=== PATIENT | female | born 1955 | race Caucasian/White ===

== ENCOUNTER → 2020-02-24 | Outpatient (CLI) | payer MEDICARE, OTHER, SELFPAY ==
--- NOTE | 2020-02-24 | ASPS_PTH ---
PATIENT: NIKI MEYER LOC: [facility] U#:[id number] AGE/SX: 65/F ROOM: RE02/24/[address]: Dr. Jose Frost MD : 1955 BED: DIS: 02/24/2020 SPEC #: [id number] RECD: 02/24/20 16:04 STATUS: VIDYA JOSE #: [id number] ROBERT: 02/24/20 00:[address]: Jose Frost DEPT: CYTOLOGY RECD BY: Javi Cole ENTERED: 02/25/20 07:59 SP TYPE: ASPIRATION OTHR DR: Dr. Todd Mensah, DO Tissues: A - Thyroid gland, NOS B - Thyroid gland, NOS Procedures: Special Stain Group II Cytology Other HEADER OPERATION: Left thyroid FNA PRE-OP DIAGNOSIS: Abnormal thyroid ultrasound, multiple thyroid nodules TISSUE SUBMITTED: A - Left inferior thyroid slides x6, B - Left superior thyroid slides x6 DIAGNOSIS CYTOLOGY A. Fine needle aspiration, left inferior thyroid nodule (smears): Adequate for evaluation. Negative, consistent with benign follicular nodule. B. Fine needle aspiration, left superior thyroid nodule (smears): Adequate for evaluation. Negative, consistent with benign follicular nodule. AM:shahla 02/26/20 CYTOLOGY STUDY Slides are reviewed. CYTOLOGY GROSS A - Received are six smears labeled with the patient's name and designated per the requisition as left inferior thyroid. Submitted for staining. B - Received are six smears labeled with the patient's name and designated per the requisition as left superior thyroid. Submitted for staining. / shahla 02/25/20 TC:5 CPT: 59938 x2
[2020-02-24 14:38] VITALS: BMI 24.5
== END | disposition home or self-care (01) ==
PROVIDERS: PCP Student in an Organized Health Care Education/Training Program; Referring Provider Surgery; Visit Provider Surgery
DX: E04.2 Nontoxic multinodular goiter (principal)
CPT/HCPCS: 88161; 88313

== ENCOUNTER → 2020-02-25 16:14 | Outpatient (CLI) | payer MEDICARE, OTHER, SELFPAY ==
[2020-02-25 08:58] VITALS: BMI 24.5
--- NOTE | 2020-02-25 16:01 | ASPS_PTH ---
PATIENT: NIKI MEYER LOC: [facility] U#:[id number] AGE/SX: 70/F ROOM: RE02/25/[address]: Dr. Jose Frost MD : 1955 BED: DIS: SPEC #: [id number] RECD: 02/25/20 16:01 STATUS: VIDYA JOSE #: [id number] ROBERT: 02/25/20 16:[address]: Jose Frost DEPT: CYTOLOGY RECD BY: Luis Huitron ENTERED: 02/26/20 07:54 SP TYPE: ASPIRATION OTHR DR: Dr. Todd Mensah DO Tissues: Thyroid gland, NOS Procedures: Special Stain Group II Cytology Other HEADER OPERATION: Right thyroid FNA PRE-OP DIAGNOSIS: Multiple thyroid nodules TISSUE SUBMITTED: Right thyroid slides x6 DIAGNOSIS CYTOLOGY Right thyroid nodule, fine needle aspiration (smears): Adequate for evaluation. Mild atypia of undetermined clinical significance. AM:shahla 02/26/20 CYTOLOGY STUDY Slides are reviewed. CYTOLOGY GROSS Received are six smears labeled with the patient's name and designated per the requisition as right thyroid. Submitted for staining. / shahla 02/26/20 TC:? CPT: 26608
== END ==
PROVIDERS: PCP Student in an Organized Health Care Education/Training Program; Referring Provider Surgery; Visit Provider Surgery
DX: E04.2 Nontoxic multinodular goiter (principal)
CPT/HCPCS: 88161; 88313

== ENCOUNTER → 2020-05-03 | Outpatient (CLI) | payer MEDICARE, OTHER, SELFPAY ==
[2020-02-25 08:58] VITALS: BMI 24.5
[2020-05-03 12:48] LABS: T4 Free Direct 1.24 ng/dL (0.76-1.46); Thyroid Stim Hormone (TSH) 1.67 uIU/mL (0.358-3.74)
[2020-05-04 09:40] LABS: Thyroid Peroxidase AB 15 IU/mL (0-34)
== END | disposition home or self-care (01) ==
LOC: BIMLAB 10:46
PROVIDERS: PCP Student in an Organized Health Care Education/Training Program; Referring Provider Internal Medicine Endocrinology, Diabetes & Metabolism; Visit Provider Internal Medicine Endocrinology, Diabetes & Metabolism
DX: E03.9 Hypothyroidism, unspecified (principal)
CPT/HCPCS: 36415; 84439; 84443; 86376

== ENCOUNTER → 2020-08-02 | Outpatient (CLI) | payer MEDICARE, OTHER, SELFPAY ==
[2020-02-25 08:58] VITALS: BMI 24.5
--- NOTE | 2020-08-02 08:37 | US_ITS ---
STUDY: THYROID ULTRASOUND REASON FOR EXAM: Female, 65 years old. Nodule TECHNIQUE: Ultrasound evaluation of the thyroid was performed with real-time and static potts-scale imaging. COMPARISON: None. FINDINGS: RIGHT LOBE: The right lobe of the thyroid gland measures 4.3 cm x 1 cm x 1.3 cm. There is a heterogeneous echotexture. Multiple small hypoechoic solid nodules are seen scattered throughout the right lobe. The largest measures 5 mm x 5 mm x 4 mm. Rim-like calcification is seen. LEFT LOBE: The left lobe of the thyroid gland is enlarged and measures 5.6 cm x 2.2 cm x 1.5 cm. There is a heterogeneous echotexture. Multiple small solid nodules are seen. The largest nodule measures 3.2 cm x 1.9 cm x 1.8 cm. There is evidence of intranodular vascularity. This is in the lower pole of the left lobe. ISTHMUS: The isthmus measures 1.8 mm. The regional lymph nodes are normal. US/Thyroid IMPRESSION: Heterogeneous echotexture of both lobes of the thyroid. Dominant 3.2 cm x 1.9 cm x 1.8 cm solid nodule in the lower pole of the left lobe of the thyroid. Multiple small bilateral solid nodules. Electronically Signed: Osmany Boyd, at 14:55 EDT , Service support ,
== END | disposition home or self-care (01) ==
LOC: US 08:37
PROVIDERS: PCP Student in an Organized Health Care Education/Training Program; Referring Provider Surgery; Visit Provider Surgery
DX: E04.1 Nontoxic single thyroid nodule (principal)
CPT/HCPCS: 76536

== ENCOUNTER 2021-02-02 17:23 | Outpatient (RCR) | payer MEDICARE, OTHER, SELFPAY ==
[2020-08-24 11:32] VITALS: BMI 24.5
[2021-02-02] MEDS: COVID-19 VACC, MRNA(PFIZER)/PF 30 MCG/0.3 ML SYRINGE IM (16:05)
[2021-02-23] MEDS: COVID-19 VACC, MRNA(PFIZER)/PF 30 MCG/0.3 ML SYRINGE IM (15:39)
== END 2021-05-09 23:59 ==
LOC: IMMUN 17:23
PROVIDERS: PCP Student in an Organized Health Care Education/Training Program; Visit Provider Family Medicine
DX: Z23 Encounter for immunization (principal)
CPT/HCPCS: 0001A; 0002A; 91300

== ENCOUNTER → 2021-07-04 | Outpatient (CLI) | payer MEDICARE, OTHER, SELFPAY ==
[2020-08-24 11:32] VITALS: BMI 24.5
--- NOTE | 2021-07-04 11:15 | US_ITS ---
EXAM DESCRIPTION: CLINICAL HISTORY: 66 years Female, thyroid nodules COMPARISON: Previous thyroid ultrasound obtained on 08/02/2020 FINDINGS: Serial longitudinal and transverse scans of the thyroid were obtained utilizing a real-time sector scanner. The thyroid measurements are as follows: Right thyroid lobe: 3.6 x 1.2 x 1.1 cm with a volumn of cc. Left thyroid lobe: 5.5 x 2.2 x 1.6 cm with a volumn of cc. Thyroid isthmus: 0.3 cm The thyroid has a heterogenous appearance. There is a calcified thyroid nodule measuring about 5 mm in size in the right lobe of thyroid which was previously identified and is unchanged. A small questionable hypoechoic nodule is seen in the inferior right thyroid lobe surrounded by some echogenic stranding. This The left thyroid lobe a larger heterogeneous nodular density which contains some internal cyst is identified. This well encapsulated nodule measures 3.1 x 2.3 x 1.3 cm in size and there was previously identified and is not significant changed. Just superior to this is a smaller nodule which is solid measuring 1.4 x 1.3 x 0.8 cm in size which likewise is unchanged. An additional homogeneous nodule measuring 5 x 6 mm in size and 2 additional smaller nodules of similar size are also seen which appear unchanged. No significant cervical lymphadenopathy is identified. US/Thyroid IMPRESSION: A multinodular thyroid goiter is identified which is unchanged. Electronically Signed: Pantera Oneil DO at 14:00 EDT Tel , Service support ,
== END | disposition home or self-care (01) ==
LOC: US 11:15
PROVIDERS: PCP Student in an Organized Health Care Education/Training Program; Referring Provider Surgery; Visit Provider Surgery
DX: E04.2 Nontoxic multinodular goiter (principal)
CPT/HCPCS: 76536

== ENCOUNTER → 2021-08-25 12:00 | Outpatient (CLI) | payer MEDICARE, OTHER, SELFPAY ==
[2021-08-25 15:15] LABS: Absolute Lymphocyte Count 1.16 X10^3/uL (0.83-4.51); Absolute Neutrophil Count 2.5 X10^3/uL (2.0-7.7); Basophil# 0.03 X10^3/uL; Basophil% 0.7 % (0-1); Eosinophil# 0.21 X10^3/uL; Eosinophils% 4.8 % (0-5); Hematocrit 39.4 % (37-47); Hemoglobin 12.1 g/dL (12.0-15.0); Lymphocyte # 1.16 X10^3/ul (0.83-4.51); Lymphocyte % 26.5 % (19-41); Mean Corp Hgb Conc 30.7 g/dL (32-36); Mean Corpuscular Hgb 27.3 pg (27.0-32.0); Mean Corpuscular Volume 88.7 fL (81-99); Mean Platelet Vol. 10.9 fl (6.2-12.0); Monocyte# 0.51 X10^3/uL; Monocyte% 11.6 % (0-10); NRBC Flagged by Analyzer 0 % (0-5); Neutrophil # 2.46 X10^3/uL (2.7-7.7); Neutrophil % 56.2 % (47-70); Platelet Count 334 K/mm3 (150-450); RBC Distribution Width CV 15.1 % (11.6-14.6); RBC Distribution Width SD 49.5 fl (35.1-43.9); Red Blood Count 4.44 M/mm3 (4.2-5.4); White Blood Count 4.4 K/mm3 (4.4-11.0)
[2021-08-25 15:35] LABS: Vitamin D,25 Hydroxy 49.6 ng/mL
[2021-08-25 15:45] LABS: ALB/GLOB Ratio 0.6 RATIO (0.9-2.4); AST(SGOT) 16 U/L (15-37); Alanine Aminotransfer ALT/SGPT 25 U/L (13-56); Alkaline Phosphatase 65 U/L (45-117); Anion Gap 5 (5-15); BUN 18 mg/dL (7-18); BUN/Creat Ratio 25.9 RATIO (10-20); Calcium,Total 8.3 mg/dL (8.5-10.1); Chloride 106 mmol/L (98-107); Creatinine, Serum 0.69 mg/dL (0.55-1.02); EST Glomerular Filtration Rate 89 mL/min (>60); Est Glom Filt Rate - Afr Amer 108 mL/min (>60); Globulin 4.7 g/dL (2.2-4.2); Glucose 90 mg/dL (74-106); Potassium 4.6 mmol/L (3.5-5.1); Protein, Total 7.7 g/dL (6.4-8.2); Sodium Level 137 mmol/L (136-145); T4 Free Direct 1.38 ng/dL (0.76-1.46); Thyroid Stim Hormone (TSH) 1.99 uIU/mL (0.358-3.74)
== END ==
PROVIDERS: PCP Student in an Organized Health Care Education/Training Program; Referring Provider Internal Medicine Endocrinology, Diabetes & Metabolism; Visit Provider Internal Medicine Endocrinology, Diabetes & Metabolism
DX: E03.9 Hypothyroidism, unspecified (principal); E04.2 Nontoxic multinodular goiter; M81.0 Age-related osteoporosis without current pathological fracture; E55.9 Vitamin D deficiency, unspecified
CPT/HCPCS: 36415; 80053; 82306; 84439; 84443; 85025

== ENCOUNTER → 2022-07-09 | Outpatient (CLI) | payer MEDICARE, OTHER, SELFPAY ==
--- NOTE | 2022-07-09 12:33 | US_ITS ---
STUDY: THYROID ULTRASOUND REASON FOR EXAM: Female, 67 years old. Known nodules, follow-up TECHNIQUE: Ultrasound evaluation of the thyroid was performed with real-time and static potts-scale imaging. COMPARISON: 07/04/2021, 08/02/2020 FINDINGS: RIGHT LOBE: The right lobe of the thyroid gland measures 3.5 x 1.3 x 1.0 cm. There is a homogeneous echotexture. [employer] notes 3 thyroid nodules. Largest is 0.5 cm and again noted to be calcified. The other 2 measure 3 mm, one is a cyst, one is a mixed solid and cystic lesion. LEFT LOBE: The left lobe of the thyroid gland measures 5.1 x 2.4 x 1.6 cm. There is a homogeneous echotexture. [employer] Manager notes 4 nodules. All are unchanged sonographically from the previous study. The largest again measures approximately 2.9 x 2.6 x 1.6 cm. No new suspicious shadowing solid nodule or hyperemia noted. ISTHMUS: The isthmus measures 2 mm. The regional lymph nodes are normal. US/Thyroid IMPRESSION: Thyroid ultrasound is stable and unchanged from the previous studies. Multiple stable nodules are again identified in both lobes. Findings consistent with goiter. No new suspicious nodule noted. Electronically Signed: Dusty Dougherty MD at 8:16 EDT ,
== END | disposition home or self-care (01) ==
LOC: US 12:32
PROVIDERS: PCP Student in an Organized Health Care Education/Training Program; Referring Provider Surgery; Visit Provider Surgery
DX: E04.2 Nontoxic multinodular goiter (principal)
CPT/HCPCS: 76536

== ENCOUNTER → 2022-08-27 | Outpatient (CLI) | payer MEDICARE, OTHER, SELFPAY ==
[2022-08-27 15:46] LABS: Vitamin D,25 Hydroxy 41.1 ng/mL
[2022-08-27 15:55] LABS: T4 Free Direct 1.28 ng/dL (0.76-1.46); Thyroid Stim Hormone (TSH) 2.09 uIU/mL (0.358-3.74)
== END | disposition home or self-care (01) ==
LOC: BIMLAB 10:34
PROVIDERS: PCP Student in an Organized Health Care Education/Training Program; Visit Provider Internal Medicine Endocrinology, Diabetes & Metabolism
DX: E03.9 Hypothyroidism, unspecified (principal); E55.9 Vitamin D deficiency, unspecified
CPT/HCPCS: 36415; 82306; 84439; 84443

== ENCOUNTER → 2023-08-20 | Outpatient (CLI) | payer MEDICARE, OTHER, SELFPAY ==
--- NOTE | 2023-08-20 11:00 | RAD_ITS ---
INDICATION: rule out compression fracture EXAMINATION/TECHNIQUE: X-RAY - XR Spine Thoracic 3 Views COMPARISON: None. FINDINGS: VERTEBRAE: Multiple wedge compression deformities in the mid and lower thoracic spine, mild to moderate severity. No spondylolisthesis. Exaggerated thoracic kyphosis. DISCS: Disc spaces are maintained. INCLUDED CHEST/ABDOMEN: No acute abnormalities. RAD/Thoracic Spine 3 Views IMPRESSION: Multiple thoracic compression fractures of mild to moderate severity, unknown chronicity. Electronically Signed: Bill Morgan MD at 0:25 EDT ,
== END | disposition home or self-care (01) ==
LOC: RAD 10:56
PROVIDERS: PCP Student in an Organized Health Care Education/Training Program; Referring Provider Internal Medicine Endocrinology, Diabetes & Metabolism; Visit Provider Internal Medicine Endocrinology, Diabetes & Metabolism
DX: M81.0 Age-related osteoporosis without current pathological fracture (principal); M40.209 Unspecified kyphosis, site unspecified
CPT/HCPCS: 72072

== ENCOUNTER 2023-08-30 10:24 | Outpatient (CLI) | payer MEDICARE, OTHER, SELFPAY ==
[2023-08-30 10:30] VITALS: BP 121/50; PULSE 83; RESP 16; TEMP 36.4; BMI 25.0
[2023-08-30] MEDS: DENOSUMAB 60 MG/ML SC (10:39)
[2023-08-30 12:10] LABS: Vitamin D,25 Hydroxy 49.1 ng/mL
[2023-08-30 12:16] LABS: ALB/GLOB Ratio 0.8 RATIO (0.9-2.4); AST(SGOT) 17 U/L (15-37); Alanine Aminotransfer ALT/SGPT 27 U/L (13-56); Albumin, Serum 2.8 g/dL (3.2-5.0); Alkaline Phosphatase 58 U/L (45-117); Anion Gap 2 (5-15); BUN 19 mg/dL (7-18); BUN/Creat Ratio 26.2 RATIO (10-20); Calcium,Total 8.6 mg/dL (8.5-10.1); Chloride 107 mmol/L (98-107); Creatinine, Serum 0.72 mg/dL (0.55-1.02); EST Glomerular Filtration Rate 85 mL/min (>60); Est Glom Filt Rate - Afr Amer 102 mL/min (>60); Estimated Creatinine Clearance 38.14 ml/min; Globulin 3.7 g/dL (2.2-4.2); Glucose 84 mg/dL (74-106); Potassium 4.2 mmol/L (3.5-5.1); Protein, Total 6.5 g/dL (6.4-8.2); Sodium Level 137 mmol/L (136-145); T4 Free Direct 1.17 ng/dL (0.76-1.46); Thyroid Stim Hormone (TSH) 2.76 uIU/mL (0.358-3.74)
== END 2023-08-30 10:25 | disposition home or self-care (01) ==
LOC: MEDOUTP 10:26
PROVIDERS: PCP Student in an Organized Health Care Education/Training Program; Referring Provider Internal Medicine Endocrinology, Diabetes & Metabolism; Visit Provider Internal Medicine Endocrinology, Diabetes & Metabolism
DX: M81.0 Age-related osteoporosis without current pathological fracture (principal); E04.2 Nontoxic multinodular goiter; E03.9 Hypothyroidism, unspecified; E55.9 Vitamin D deficiency, unspecified
CPT/HCPCS: 36415; 80053; 82306; 84439; 84443; 96372; J0897

== ENCOUNTER → 2023-10-07 | Outpatient (CLI) | payer MEDICARE, OTHER, SELFPAY ==
--- NOTE | 2023-10-07 15:17 | US_ITS ---
INDICATION: monitoring F/U NODULES EXAMINATION: Ultrasound US Thyroid (eg thyroid, parathyroid, parotid) TECHNIQUE: Bass scale and color doppler imaging was performed of the thyroid gland. COMPARISON: July 09, 2022 FINDINGS: RIGHT THYROID LOBE: 3.4 x 0.9 x 1.3 cm. Homogeneous echotexture with normal vascularity. [There is a mid thyroid 4 x 5 x 6 mm calcified nodule. There is a 4 x 3 x 3 mm peripheral hypoechoic nodule. There is a lower pole 5 x 4 x 3 mm hypoechoic nodule. Additional smaller hypoechoic nodules are also noted, some are likely cystic. LEFT THYROID LOBE: 5.6 x 1.7 x 1.5 cm. Heterogeneous echotexture with normal vascularity. [Multiple solid and heterogeneous mixed nodules are noted. There are at least 2 upper pole solid nodules measuring 6 x 5 x 3 mm and 6 x 6 x 4 mm. Larger solid nodules are noted in the lower half of the left thyroid lobe measuring 1.4 x 1.1 x 0.9 cm and 3.0 x 1.8 x 1.6 cm. ISTHMUS: 2 mm. No thyroid nodules are present. US/Thyroid IMPRESSION: Stable appearing thyroid nodules bilaterally as noted. Electronically Signed: Prasad Romeo DO at 16:19 EST Reading Location ID and State: [facility] / [place] Tel [phone], Service support ,
== END | disposition home or self-care (01) ==
LOC: US 15:16
PROVIDERS: PCP Student in an Organized Health Care Education/Training Program; Referring Provider Internal Medicine Endocrinology, Diabetes & Metabolism; Visit Provider Internal Medicine Endocrinology, Diabetes & Metabolism
DX: E04.2 Nontoxic multinodular goiter (principal)
CPT/HCPCS: 76536

== ENCOUNTER → 2024-05-13 | Outpatient (CLI) | payer MEDICARE, OTHER, SELFPAY ==
[2024-05-13 12:42] LABS: Erythrocyte Sedimentation Rate 20 mm/hr (0-30); Hematocrit 39.1 % (37-47); Hemoglobin 12.3 g/dL (12.0-15.0); Mean Corp Hgb Conc 31.5 g/dL (32-36); Mean Corpuscular Hgb 27.6 pg (27.0-32.0); Mean Corpuscular Volume 87.9 fL (81-99); Mean Platelet Vol. 10.8 fl (6.2-12.0); Platelet Count 246 K/mm3 (150-450); RBC Distribution Width CV 15.5 % (11.6-14.6); RBC Distribution Width SD 49.5 fl (35.1-43.9); Red Blood Count 4.45 M/mm3 (4.2-5.4); White Blood Count 3.2 K/mm3 (4.4-11.0)
[2024-05-13 13:40] LABS: Ferritin 54 ng/mL (8-252); Iron 51 ug/dL (50-170); Iron Binding Capacity,Total 356 ug/dL (250-450); PERCENT IRON SATURATION 14.3 % (15.0-55.0)
== END | disposition home or self-care (01) ==
PROVIDERS: PCP Student in an Organized Health Care Education/Training Program; Referring Provider Internal Medicine Gastroenterology; Visit Provider Internal Medicine Gastroenterology
DX: D50.9 Iron deficiency anemia, unspecified (principal)
CPT/HCPCS: 36415; 82728; 83540; 83550; 85027; 85652; 86140

== ENCOUNTER → 2024-11-04 | Outpatient (CLI) | payer MEDICARE, OTHER, SELFPAY ==
[2024-11-04 15:48] LABS: ALB/GLOB Ratio 0.7 RATIO (0.9-2.4); AST(SGOT) 20 U/L (15-37); Alanine Aminotransfer ALT/SGPT 26 U/L (13-56); Albumin, Serum 3.1 g/dL (3.2-5.0); Alkaline Phosphatase 68 U/L (45-117); Anion Gap 9 (5-15); BUN 19 mg/dL (7-18); BUN/Creat Ratio 27.9 RATIO (10-20); Chloride 106 mmol/L (98-107); Creatinine, Serum 0.68 mg/dL (0.55-1.02); EST Glomerular Filtration Rate 90 mL/min (>60); Est Glom Filt Rate - Afr Amer 109 mL/min (>60); Globulin 4.7 g/dL (2.2-4.2); Glucose 96 mg/dL (74-106); Protein, Total 7.8 g/dL (6.4-8.2); Sodium Level 139 mmol/L (136-145); T4 Free Direct 1.23 ng/dL (0.76-1.46)
[2024-11-04 16:02] LABS: Vitamin D,25 Hydroxy 58.2 ng/mL
== END | disposition home or self-care (01) ==
LOC: BIMLAB 11:41
PROVIDERS: PCP Student in an Organized Health Care Education/Training Program; Referring Provider Internal Medicine Endocrinology, Diabetes & Metabolism; Visit Provider Internal Medicine Endocrinology, Diabetes & Metabolism
DX: E03.9 Hypothyroidism, unspecified (principal); E04.2 Nontoxic multinodular goiter; M81.0 Age-related osteoporosis without current pathological fracture
CPT/HCPCS: 36415; 80053; 82306; 84439; 84443

== ENCOUNTER → 2024-12-23 | Outpatient (CLI) | payer MEDICARE, OTHER, SELFPAY ==
[2024-12-23 15:05] LABS: Hematocrit 36.4 % (37-47); Hemoglobin 11.3 g/dL (12.0-15.0); Mean Corpuscular Volume 90.3 fL (81-99); Mean Platelet Vol. 10.3 fl (6.2-12.0); Platelet Count 266 K/mm3 (150-450); RBC Distribution Width CV 14.6 % (11.6-14.6); RBC Distribution Width SD 48.6 fl (35.1-43.9); Red Blood Count 4.03 M/mm3 (4.2-5.4); White Blood Count 4.4 K/mm3 (4.4-11.0)
[2024-12-23 15:40] LABS: Iron 32 ug/dL (50-170)
[2024-12-23 15:41] LABS: ALB/GLOB Ratio 0.7 RATIO (0.9-2.4); AST(SGOT) 13 U/L (15-37); Alanine Aminotransfer ALT/SGPT 22 U/L (13-56); Alkaline Phosphatase 63 U/L (45-117); Anion Gap 7 (5-15); BUN 19 mg/dL (7-18); BUN/Creat Ratio 25.2 RATIO (10-20); Calcium,Total 8.6 mg/dL (8.5-10.1); Chloride 104 mmol/L (98-107); Creatinine, Serum 0.75 mg/dL (0.55-1.02); EST Glomerular Filtration Rate 81 mL/min (>60); Est Glom Filt Rate - Afr Amer 98 mL/min (>60); Globulin 4.4 g/dL (2.2-4.2); Glucose 173 mg/dL (74-106); Potassium 3.7 mmol/L (3.5-5.1); Protein, Total 7.4 g/dL (6.4-8.2); Sodium Level 137 mmol/L (136-145)
[2024-12-23 15:58] LABS: Hepatitis B Surface Antigen Non-Reactive (Nonreactive)
[2024-12-25 16:08] LABS: QNTFERON TB Mitogen Value > 10.00 IU/mL (.); QNTFERON TB Nil Value 0 IU/mL (.); QNTFERON TB1+ Ag Value 0.01 IU/mL (.); QNTFERON TB2+ Ag Value 0 IU/mL (.); QNTIFERON TB Positive Criteria Negative (Negative)
== END | disposition home or self-care (01) ==
LOC: MTLAB 13:19
PROVIDERS: PCP Student in an Organized Health Care Education/Training Program; Referring Provider Internal Medicine Gastroenterology; Visit Provider Internal Medicine Gastroenterology
DX: E61.1 Iron deficiency (principal); K50.90 Crohn's disease, unspecified, without complications
CPT/HCPCS: 36415; 80053; 83540; 85027; 86140; 86480; 87340

== ENCOUNTER → 2025-01-06 | Outpatient (CLI) | payer MEDICARE, OTHER, SELFPAY ==
[2025-01-06 16:01] LABS: Hematocrit 37.3 % (37-47); Hemoglobin 11.6 g/dL (12.0-15.0); Mean Corp Hgb Conc 31.1 g/dL (32-36); Mean Corpuscular Hgb 28.4 pg (27.0-32.0); Mean Corpuscular Volume 91.4 fL (81-99); Mean Platelet Vol. 10.8 fl (6.2-12.0); Platelet Count 277 K/mm3 (150-450); RBC Distribution Width CV 14.6 % (11.6-14.6); RBC Distribution Width SD 48.7 fl (35.1-43.9); Red Blood Count 4.08 M/mm3 (4.2-5.4); White Blood Count 4.5 K/mm3 (4.4-11.0)
[2025-01-06 16:57] LABS: CRP 8.64 mg/L (0.0-3.0); Ferritin 106 ng/mL (8-252); Iron 40 ug/dL (50-170)
== END | disposition home or self-care (01) ==
LOC: MTLAB 11:33
PROVIDERS: PCP Student in an Organized Health Care Education/Training Program; Referring Provider Internal Medicine Gastroenterology; Visit Provider Internal Medicine Gastroenterology
DX: K50.90 Crohn's disease, unspecified, without complications (principal)
CPT/HCPCS: 36415; 82728; 83540; 85027; 86140

== ENCOUNTER → 2025-01-27 | Outpatient (CLI) | payer MEDICARE, OTHER, SELFPAY ==
--- NOTE | 2025-01-27 06:59 | CT_ITS ---
PROCEDURE: ABDOMEN/PELVIS WITH CONTRAST REASON FOR EXAM: Crohn's disease. Enterography. No acute symptoms at this time. TECHNIQUE: Abdomen and pelvis CT with intravenous contrast. Oral contrast was also used. IV CONTRAST: 100 cc of Isovue-300 was injected intravenously. COMPARISON: None. FINDINGS: Lung bases: Clear Liver: There is a 1.3 cm x 1.7 cm cyst in the anterior aspect of the right lobe of the liver. Subcentimeter cyst in the inferior aspect of the left lobe of the liver. Gallbladder: Unremarkable. Spleen: Unremarkable. Pancreas: Unremarkable. Adrenals: Unremarkable. Kidneys: Unremarkable. Bladder: Unremarkable. Reproductive Organs: Unremarkable. Bowel: Unremarkable.. Large hiatal hernia. Appendix: Normal. Lymph nodes: No suspicious lymph node enlargement. Vasculature: Major vascular structures are unremarkable. Peritoneum / Retroperitoneum: No ascites. No free air. Bones: Demineralization of the lumbar vertebrae. 50% loss of height of the T12 vertebrae. Loss of height of the superior endplates of the L3-L4 and L5 vertebrae. CT/Abdomen/Pelvis WITH Contrast IMPRESSION: Small hepatic cysts. Large hiatal hernia. One or more dose reduction techniques were used (e.g., Automated exposure contr ol, adjustment of the mA and/or kV according to patient size, use of iterative reconstruction technique). Reading Location: [id number]
== END | disposition home or self-care (01) ==
LOC: CT 06:58
PROVIDERS: PCP Student in an Organized Health Care Education/Training Program; Referring Provider Internal Medicine Gastroenterology; Visit Provider Internal Medicine Gastroenterology
DX: K50.90 Crohn's disease, unspecified, without complications (principal)
CPT/HCPCS: 74177; Q9967

== ENCOUNTER → 2025-04-14 | Outpatient (CLI) | payer MEDICARE, OTHER, SELFPAY ==
[2025-04-14 17:50] LABS: Hematocrit 35.3 % (37-47); Hemoglobin 11.4 g/dL (12.0-15.0); Mean Corp Hgb Conc 32.3 g/dL (32-36); Mean Corpuscular Hgb 29.6 pg (27.0-32.0); Mean Corpuscular Volume 91.7 fL (81-99); Mean Platelet Vol. 10.9 fl (6.2-12.0); Platelet Count 225 K/mm3 (150-450); RBC Distribution Width CV 14.7 % (11.6-14.6); RBC Distribution Width SD 50.1 fl (35.1-43.9); Red Blood Count 3.85 M/mm3 (4.2-5.4); White Blood Count 4.4 K/mm3 (4.4-11.0)
[2025-04-14 18:39] LABS: ALB/GLOB Ratio 1.2 RATIO (0.9-2.4); AST(SGOT) 22 U/L (<=31); Alanine Aminotransfer ALT/SGPT 18 U/L (<=34); Alkaline Phosphatase 63 U/L (35-104); Anion Gap 13 (5-15); BUN 19 mg/dL (4-19); Calcium,Total 9.9 mg/dL (7.6-11.0); Carbon Dioxide 25.5 mmol/L (21.0-32.0); Chloride 102 mmol/L (98-108); Creatinine, Serum 0.73 mg/dL (0.70-1.20); EST Glomerular Filtration Rate 88 (>60); Ferritin 209 ng/mL (22-378); Globulin 3.3 g/dL (2.2-4.2); Glucose 152 mg/dL (70-99); Potassium 3.8 mmol/L (3.3-5.1); Protein, Total 7.3 g/dL (5.9-8.4); Sodium Level 140 mmol/L (133-145); Total Bilirubin 0.25 mg/dL (0.00-1.30)
[2025-04-14 18:59] LABS: Erythrocyte Sedimentation Rate 32 mm/hr (0-30)
[2025-04-14 19:04] LABS: Iron 36 ug/dL (50-170)
== END | disposition home or self-care (01) ==
LOC: MTLAB 14:23
PROVIDERS: PCP Student in an Organized Health Care Education/Training Program; Referring Provider Internal Medicine Gastroenterology; Visit Provider Internal Medicine Gastroenterology
DX: K50.90 Crohn's disease, unspecified, without complications (principal); D50.9 Iron deficiency anemia, unspecified
CPT/HCPCS: 36415; 80053; 82728; 83540; 85027; 85652; 86140

== ENCOUNTER → 2025-05-26 | Outpatient (CLI) | payer MEDICARE, OTHER, SELFPAY ==
[2025-05-26 10:34] LABS: Absolute Lymphocyte Count 1.19 X10^3/uL (0.83-4.51); Basophil# 0.03 X10^3/uL; Basophil% 0.8 % (0-1); Eosinophil# 0.12 X10^3/uL; Eosinophils% 3.2 % (0-5); Hematocrit 37.3 % (37-47); Lymphocyte # 1.19 X10^3/ul (0.83-4.51); Lymphocyte % 31.8 % (19-41); Mean Corp Hgb Conc 32.2 g/dL (32-36); Mean Corpuscular Hgb 29.6 pg (27.0-32.0); Mean Corpuscular Volume 91.9 fL (81-99); Mean Platelet Vol. 10.4 fl (6.2-12.0); Monocyte# 0.39 X10^3/uL; Monocyte% 10.4 % (0-10); NRBC Flagged by Analyzer 0 % (0-5); Neutrophil % 53.5 % (47-70); Platelet Count 218 K/mm3 (150-450); RBC Distribution Width CV 14.6 % (11.6-14.6); RBC Distribution Width SD 49.7 fl (35.1-43.9); Red Blood Count 4.06 M/mm3 (4.2-5.4); White Blood Count 3.7 K/mm3 (4.4-11.0)
[2025-05-26 11:16] LABS: Ferritin 257 ng/mL (22-378)
[2025-05-26 12:21] LABS: CRP 6.63 mg/L (0.0-3.0); Iron 56 ug/dL (50-170)
== END | disposition home or self-care (01) ==
LOC: MTLAB 09:23
PROVIDERS: PCP Student in an Organized Health Care Education/Training Program; Referring Provider Internal Medicine Gastroenterology; Visit Provider Internal Medicine Gastroenterology
DX: K50.10 Crohn's disease of large intestine without complications (principal)
CPT/HCPCS: 36415; 82728; 83540; 85025; 86140

== ENCOUNTER → 2025-08-14 | Outpatient (CLI) | payer MEDICARE, OTHER, SELFPAY ==
--- OUTSIDE RECORDS SUMMARY | 2025-08-14 11:22 | XMS RPT_ITS | CCD ---
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 Marco Mensah Primary Care Provider [phone] Dr. Marco Mensah Referring Provider Dr. Jose Frost Attending Provider Dr. Lincoln Hartley Attending Provider [phone] MEGHAN FLORES, DR MONTEZ Primary Care Physician [phone] Stan PT, Zainab Unavailable Unavailable Dr. Marco Mensah Primary Care Provider Dr. Marco Mensah Referring Provider Dr. Lincoln Hartley Attending Provider Dr. Marco Mensah Primary Care Provider [phone] Dr. Marco Mensah Referring Provider Dr. Lincoln Hartley Attending Provider ROBBIE MARIN, DR BRADLEY Attending Unavailabl e ROMAR DO, DR MONTEZ Primary Care Unavailable ROMAR DO, DR MONTEZ Primary Care Unavailable ROMAR DO, DR MONTEZ Attending Unavailable ROMAR DO, DR MONTEZ Primary Care Unavailable ROMAR DO, DR MONTEZ Attending Unavailable ROMAR DO, DR MONTEZ Referring Unavailable ROMAR DO, DR MONTEZ Primary Care Unavailable ROMAR DO, DR MONTEZ Attending Unavailable ROMAR DO, DR MONTEZ Primary Care Unavailable ROMAR DO, DR MONTEZ Attending Unavailable ROMAR DO, DR MONTEZ Primary Care Unavailable ROMAR DO, DR MONTEZ Attending Unavailable ROMAR DO, DR MONTEZ Primary Care Unavailable ROMAR DO, DR MONTEZ Attending Unavailable ROMAR DO, DR MONTEZ Attending Unavailable ROMAR DO, DR MONTEZ Primary Care Unavailable ANY DO, NAYAN Felix Attending Unavailable ROMAR DO, DR MONTEZ Primary Care Unavailable ROMAR DO, DR MONTEZ Attending Unavailable ROMAR DO, DR MONTEZ Primary Care Unavailable ROMAR DO, DR MONTEZ Attending Unavailable ROMAR DO, DR MONTEZ Primary Care Unavailable ROMAR DO, DR MONTEZ Attending Unavailable ROMAR DO, DR MONTEZ Primary Care Unavailable ROMAR DO, DR MONTEZ Attending Unavailable ROMAR DO, DR MONTEZ Primary Care Unavailable ROMAR DO, DR MONTEZ Attending Unavailable ROMAR DO, DR MONTEZ Primary Care Unavailable Romar DO, Dr. Montez Primary Care Provider [phone] King TOMAS, Dr. Stark Attending Provider King TOMAS, Dr. Stark Referring Provider Romar DO, Dr. Montez Other Provider [phone] Robbie MARIN, Dr. Bradley Attending Provider Robbie MARIN, Dr. Bradley Referring Provider Meghan FLORES, Dr. Montez Referring Provider [phone] Meghan DO, Dr. Montez Primary Care Provider [phone] King TOMAS, Dr. Stark Attending Provider ROMAR DO, DR MONTEZ Attending Unavailable ROMAR DO, DR MONTEZ Primary Care Unavailable ROMAR DO, DR MONTEZ Attending Unavailable ROMAR DO, DR MONTEZ Primary Care Unavailable Romar DO, Dr. Montez Primary Care Provider [phone] Robbie MARIN, Dr. Bradley Attending Provider Robbie MARIN, Dr. Bradley Referring Provider Meghan FLORES, Dr. Montez Primary Care Provider [phone] Romyareli DO, Dr. Montez Referring Provider [phone] King TOMAS, Dr. Stark Attending Provider Marco Mensah Primary Care Unavailable Lincoln Hartley Attending Unavailable Marco Mensah Referring Unavailable Jabour, Kirk Referring Unavailable Jajolie, Kirk Attending Unavailable Romar, Marco Primary Care Unavailable Romar, Marco Consulting Unavailable Jabour, Kirk Referring Unavailable Jabour, Kirk Attending Unavailable Romar, Marco Primary Care Unavailable Jabour, Kirk Attending Unavailable Jabour, Kirk Referring Unavailable Romar, Marco Primary Care Unavailable Romar, Marco Primary Care Unavailable Naeem, Lincoln Attending Unavailable Romar, Marco Referring Unavailable Jabour, Vincent Attending Unavailable Romar, Marco Primary Care Unavailable Jabour, Vincent Referring Unavailable Romar, Marco Primary Care Unavailable Naeem, Lincoln Attending Unavailable Naeem, Lincoln Referring Unavailable Romar, Marco Primary Care Unavailable Jabour, Vincent Attending Unavailable Jabour, Vincent Referring Unavailable Naeem, Lincoln Attending Unavailable Naeem, Lincoln Referring Unavailable Romar, Marco Primary Care Unavailable Allergies Allergy Classification Reported Allergen(s) Allergy Type Date of Onset Reaction(s) Facility (20 sources) Caffeine; Translations: [caffeine] Drug Allergy 2 Unknown, Headache [facility] (20 sources) Cromolyn; Translations: [cromolyn] Drug Allergy 2 Rash [facility] (9 sources) Glutamate Drug Allergy 2 pain [facility] (10 sources) Sulfonamides (Antibiotic); Translations: [Sulfa (Sulfonamide Antibiotics)] Allergy to substance 2 Unknown [facility] (18 sources) Chocolate; Translations: [chocolate] Food allergy 4 Stomach ache (finding) [facility] (13 sources) peanut Food allergy Headache (finding) [facility] (13 sources) Peanut butter Food allergy Headache (finding) [facility] (13 sources) POLYETHYLENE GLYCOL 3350 / Potassium Chloride / Sodium Bicarbonate / Sodium Chloride; Translations: [polyethylene glycol electrolyte solution] Drug Allergy Skin sensitivity, function (observable entity) [facility] (6 sources) Sulfonamides (Antibiotic); Translations: [sulfa drugs] Drug allergy Unknown [facility] (13 sources) MSG Drug allergy Pain of breast (finding) [facility] (12 sources) Hayfever 1 Allergy to substance Eruption of skin (disorder) [facility] Comment on above: rash, nasal congesti on (7 sources) Sulfonamide; Translations: [sulfa drugs] Drug allergy Unknown [facility] (2 sources) misc non-codified allergy 2 Food allergy Gi upset [facility] Comment on above: raw onions (5 sources) Adhesive Tape; Translations: [adhesive tape] Propensity to adverse reactions 4 [facility] (4 sources) peanut allergenic extract Drug Allergy 4 Other [facility] (4 sources) Pollen Propensity to adverse reactions 4 Other [facility] (4 sources) POLYETHYLENE GLYCOL 3350 Drug Allergy 4 burning skin [facility] (4 sources) Polyethylene Glycols Drug Allergy [address] [facility] skin [facility] (5 sources) Potassium Chloride; Translations: [potassium chloride] Drug Allergy [address] [facility] skin [facility] (5 sources) Sodium Bicarbonate; Translations: [sodium bicarbonate] Drug Allergy [address] [facility] skin [facility] (4 sources) Sodium Chloride Drug Allergy [address] [facility] skin [facility] (4 sources) sodium sulfate Drug Allergy 4 burning skin [facility] (4 sources) sodium Propensity to adverse reactions [address] [facility] skin [facility] (1 source) misc non-codified allergy 1 Food allergy Gi upset [facility] Comment on above: raw onions (1 source) Hayfever 2 Allergy to substance Eruption of skin (disorder) [facility] Comment on above: rash, nasal congesti on (1 source) Diclofenac Drug Allergy 5 [facility] (1 source) Caffeine Drug Allergy 5 [facility] (1 source) Cromolyn Drug Allergy 5 [facility] (1 source) Diclofenac Drug Allergy 5 [facility] (1 source) peanut allergenic extract Drug Allergy 5 [facility] (1 source) Pollen Drug allergy (disorder) 5 [facility] (1 source) Polyethylene Glycols Drug Allergy 5 [facility] (1 source) Polyethylene Glycols Drug Allergy 5 [facility] (1 source) Sodium Chloride Drug Allergy 5 [facility] (1 source) sodium sulfate Drug Allergy 5 [facility] (1 source) sodium Drug allergy (disorder) 5 [facility] (1 source) monosodium glutamate Drug allergy (disorder) 5 [facility] Medications Current Medications Medication Drug Class(es) Dates Sig (Normalized) Sig (Original) acetaminophen 325 mg oral tablet (20 sources) Start: 02-05-2023 take 1 dose by mouth twice daily as needed for pain Tylenol Dose : 325 mg =, Oral, BID, PRN as needed for pain, 0 Refill(s) Start Date: 02/05/23 Status: Ordered Repeat number: 1 Start: 02-22-2020 take 2 capsules by m outh every four hours as needed for pain Acetaminophen 325 mg capsule Active 650 mg PO Q4H as needed for pain February 22, 2020 12:00am Start: 02-22-2020 take 650 mg by mouth every four hours Acetaminophen Active 650 MG PO Q4H February 21, 2020 11:00pm Start: 12-11-2019 acetaminophen 325 mg oral capsule Dose : 650 mg = 2 cap(s), Oral, q4h, PRN as needed for pain, 0 Refill(s) Start Date: 12/11/19 Status: Ordered Repeat number: 1 ascorbic acid 1000 mg oral capsule (7 sources) Vitamin C Start: 08-20-2023 take 1 g by mouth once daily Ascorbic Acid (Vitamin C) 1,000 mg capsule Active 1 g PO DAILY August 20, 2023 12:00am Start: 08-20-2023 take 1 g by mouth once daily A scorbic Acid (Vitamin C) Active 1 GM PO DAILY August 19, 2023 11:00pm Start: 08-20-2023 take 1 g by mouth once daily A scorbic Acid (Vitamin C) Active 1 GM PO DAILY August 20, 2023 12:00am budesonide 3 mg delayed release oral capsule (7 sources) Corticosteroid Start: 09-23-2024 budesonide 3 m g oral delayed release capsule Dose : 9 mg = 3 cap(s), Oral, qAM, per GI, # 168 cap(s), 0 Refill(s) Start Date: 09/23/24 Status: Ordered Quantity: 168.0 Unit: cap(s) Repeat number: 1 calcium carbonate 500 mg chewable tablet (20 sources) Start: 08-04-2024 take 200-800 mg by mouth once daily as needed Calcium Carbonate (Antacid (Calcium Carbonate)) 200 mg calcium (500 mg) tablet,chewable Active 200 - 800 mg PO DAILY as needed August 04, 2024 12:00am Start: 02-22-2020 End: 08-24-2020 take 390 mg by mouth once daily Calcium Carbonate Discontinued 390 MG PO DAILY February 21, 2020 11:00pm August 24, 2020 10:27am Start: 02-22-2020 End: 08-24-2020 take 390 mg by mouth once daily Calcium Carbonate Discontinued 390 MG PO DAILY February 22, 2020 12:00am August 24, 2020 11:27am Start: 02-22-2020 End: 08-24-2020 take 390 mg by mouth once daily Calcium Carbonate Discontinued 390 MG PO DAILY February 22, 2020 12:00am August 24, 2020 11:27am Start: 12-11-2019 calcium carbon ate 1000 mg oral tablet, chewable Dose : 1,000 mg = 1 tab(s), Chewed, qDay, 0 Refill(s) Start Date: 12/11/19 Status: Ordered Repeat number: 1 calcium carbonate 1500 mg / cholecalciferol 800 unt chewable tablet (10 sources) Vitamin D Start: 08-03-2025 Calcium Carbon ate-Vitamin D3 (Calcium 600 With Vitamin D3) 600 mg-10 mcg (400 unit) tablet,chewable Active 1 {tbl} PO TWICE A DAY August 03, 2025 10:34am Start: 02-22-2020 End: 08-03-2025 Calcium Carbonate-Vitamin D3 (Calcium 600 With Vitamin D3) 600 mg(1,500mg) -400 unit tablet,chewable Discontinued 1 {tbl} PO DAILY February 22, 2020 12:00am August 03, 2025 10:37am Start: 02-22-2020 take 1 tablet by adriano th once daily Calcium Carbonate-Vitamin D3 (Calcium 600 With Vitamin D3) 600 mg(1,500mg) -400 unit tablet,chewable Active 1 TABLET PO DAILY February 21, 2020 11:00pm Start: 02-22-2020 Calcium Carbon ate-Vitamin D3 (Calcium 600 With Vitamin D3) 600 mg(1,500mg) -400 unit tablet,chewable Active TABLET PO February 22, 2020 12:00am cephalexin 500 mg oral capsule (1 source) Cephalosporin Antibacterial Start: 02-06-2023 End: 02-13-2023 cephalexin 500 mg oral capsule Dose : 500 mg = 1 cap(s), Oral, QID, Drink plenty of fluids., X 7 day(s), # 28 cap(s), 0 Refill(s), 02/13/23 17:54:00 EDT, Pharmacy: [id number], 151.5, cm, 02/05/23 15:21:00 EST, Height, 63, Dosing Weight Start Date: 02/06/23 Stop Date: 02/13/23 Status: Ordered cetirizine hydrochloride 10 mg oral capsule (20 sources) Histamine-1 Receptor Antagonist Start: 05-02-2020 cetirizine 10 mg oral capsule Dose : 10 mg = 1 cap(s), Oral, qDay, PRN as needed for allergy symptoms, # 40 cap(s), 0 Refill(s) Start Date: 05/02/20 Status: Ordered Quantity: 40.0 Unit: cap(s) Repeat number: 1 Start: 02-22-2020 End: 08-04-2024 take 1 tablet by mouth once daily as needed Cetirizine 10 mg tablet Discontinued 10 mg PO DAILY as needed for allergy symptoms February 22, 2020 12:00am August 04, 2024 10:42am Prolia (14 sources) RANK Ligand Inhibitor Start: 07-29-2024 Prolia m g =, Subcutaneous, q6mo, 0 Refill(s) Start Date: 07/29/24 Status: Ordered Repeat number: 1 Start: 07-29-2024 Prolia mg =, S ubcutaneous, q6mo, 0 Refill(s) Start Date: 07/29/24 Status: Ordered Start: 08-22-2023 Denosumab (Pro marty) 60 mg/mL syringe Active 60 mg SC every 6 months 12 02August 22, 2023 12:00am diclofenac sodium 0.01 mg/mg topical gel (13 sources) Nonsteroidal Anti-inflammatory Drug Start: 02-05-2023 diclofenac 1% topical gel Apply 1 amandeep, Topical, QID, # 100 gram(s), 0 Refill(s), Gel, 59.1 Start Date: 02/05/23 Status: Ordered Quantity: 100.0 Unit: g Repeat number: 1 DME MISCellaneous (13 sources) Start: 02-05-2023 DME MISCellane ous See Instructions, Incontinence pads and supplies, Dx: N39.46, # 1 EA, 0 Refill(s), Urinary incontinence, mixed, 63 Start Date: 02/05/23 Status: Ordered Quantity: 1.0 Unit: EA Repeat number: 1 Indications: Mixed incontinence; Start: 02-05-2023 DME MISCellane ous See Instructions, Incontinence pads and supplies, Dx: N39.46, # 1 EA, 0 Refill(s), Urinary incontinence, mixed, 63 Start Date: 02/05/23 Status: Ordered Quantity: 1.0 Unit: EA Repeat number: 1 Indication: Mixed incontinence Start: 02-05-2023 DME MISCellane ous See Instructions, Incontinence pads and supplies, Dx: N39.46, # 1 EA, 0 Refill(s), Urinary incontinence, mixed, 63 Start Date: 02/05/23 Status: Ordered docusate sodium 100 mg oral capsule (2 sources) Start: 04-13-2020 Colace 100 mg oral capsule Dose : 100 mg = 1 cap(s), Oral, BID, from hematology, 0 Refill(s) Start Date: 04/13/20 Status: Ordered ferrous sulfate 45 mg oral capsule (20 sources) Start: 08-24-2020 take 45 mg by mouth once daily ferrous sulfate Active 45 MG PO DAILY August 23, 2020 11:00pm Start: 08-24-2020 ferrous sulfat e Active MG PO August 24, 2020 12:00am Start: 02-22-2020 End: 02-22-2020 take 1 tablet by mouth once daily Ferrous Sulfate (Slow Fe) 142 mg (45 mg iron) tablet extended release Discontinued 142 mg PO DAILY February 22, 2020 12:00am February 22, 2020 10:18am Start: 01-14-2020 Slow Fe (as el emental iron) 45 mg oral tablet, extended release Dose : 45 mg = 1 tab(s), Oral, qDay, 0 Refill(s) Start Date: 01/14/20 Status: Ordered Repeat number: 1 Ferrous Sulfate 47.5 mg iron tablet extended release (8 sources) Start: 08-04-2024 Ferrous Sulfat e 47.5 mg iron tablet extended release Active 45 mg PO TWICE A DAY August 04, 2024 10:42am Start: 08-24-2020 End: 08-04-2024 Ferrous Sulfate 47.5 mg iron tablet extended release Discontinued 45 mg PO DAILY August 24, 2020 12:00am August 04, 2024 10:44am Fish Oils (13 sources) Start: 12-11-2019 Fish Oil 1000 mg oral capsule Dose : 1,000 mg = 1 cap(s), Oral, qDay, 0 Refill(s) Start Date: 12/11/19 Status: Ordered Repeat number: 1 Start: 12-11-2019 Fish Oil 1000 mg oral capsule Dose : 1,000 mg = 1 cap(s), Oral, qDay, 0 Refill(s) Start Date: 12/11/19 Status: Ordered kevon root (13 sources) Start: 12-11-2019 Kevon Root on e as needed, 0 Refill(s) Start Date: 12/11/19 Status: Ordered Repeat number: 1 Start: 12-11-2019 Kevon Root on e as needed, 0 Refill(s) Start Date: 12/11/19 Status: Ordered mesalamine 1200 mg delayed release oral tablet (7 sources) Aminosalicylate Start: 07-29-2024 take 1 tablet by mouth once daily mesalamine 1.2 g oral delayed release tablet 1 tab, Oral, qDay, 0 Refill(s) Start Date: 07/29/24 Status: Ordered Repeat number: 1 Multivitamin preparation (18 sources) Start: 02-22-2020 take 1 tablet by mouth once daily Multivitamin Active 1 TABLET PO DAILY February 21, 2020 11:00pm Start: 02-22-2020 take 1 tablet by adriano th once daily Multivitamin Active 1 TABLET PO DAILY February 22, 2020 12:00am Start: 12-11-2019 take 1 tablet by adriano th once daily Multivitamin Dose = 1 tab(s), Oral, Daily, 0 Refill(s) Start Date: 12/11/19 Status: Ordered Repeat number: 1 Start: 12-11-2019 take 1 tablet by adriano th once daily Multivitamin Dose = 1 tab(s), Oral, Daily, 0 Refill(s) Start Date: 12/11/19 Status: Ordered Multivitamin tablet (4 sources) Start: 02-22-2020 Multivitamin t ablet Active 1 {tbl} PO DAILY February 22, 2020 12:00am nystatin 768164 unt/ml topical cream (20 sources) Polyene Antifungal Start: 12-23-2024 End: 06-21-2025 nystatin 100,000 units/g topical cream Apply 1 amandeep, Topical, BID, PRN Rash, Apply to the affected area twice daily until healing complete., # 60 gram(s), 5 Refill(s), Pharmacy: [id number], Cream, 151, cm, 12/23/24 10:35:00 EST, Height, 58.2, kg, 12/23/24 10:35:00 EST, Dosing Weight Start Date: 12/23/24 Stop Date: 06/21/25 Status: Ordered Quantity: 60.0 Unit: g Repeat number: 6 Start: 08-04-2024 End: 08-03-2025 Nystatin 100,000 unit/gram c ream Active 1 NMA TOPICAL TWICE A DAY as needed August 03, 2025 10:36am Start: 07-29-2024 End: 09-27-2024 nystatin 100,000 units/g top ical cream Apply 1 amandeep, Topical, BID, PRN Rash, Apply to the affected area twice daily until healing complete., # 60 gram(s), 1 Refill(s), Pharmacy: [id number], Cream, 151, cm, 07/29/24 9:56:00 EDT, Height, 58.4, kg, 07/29/24 9:56:00 EDT, Dosing Weight Start Date: 07/29/24 Stop Date: 09/27/24 Status: Ordered Start: 05-01-2023 End: 05-31-2023 nystatin 100,000 units/g top ical powder Apply 1 amandeep, Topical, BID, PRN Rash, # 60 gram(s), 0 Refill(s), Pharmacy: [id number], Powder, 151.5, cm, 05/01/23 10:24:00 EDT, Height, 61.1 Start Date: 05/01/23 Stop Date: 05/31/23 Status: Ordered Start: 02-07-2023 End: 11-17-2023 nystatin 100,000 units/g top ical cream Apply 1 amandeep, Topical, BID, PRN Rash, Apply to the affected area twice daily until healing complete., # 30 gram(s), 1 Refill(s), Pharmacy: [id number], Cream, 151.2, cm, 08/21/23 8:00:00 EDT, Height, 58.18, kg, 08/21/23 8:13:00 EDT, Dosing Weight Start Date: 09/18/23 Stop Date: 11/17/23 Status: Ordered Damon-3 Fatty Acids (Fish Oil Concentrate) 1,000 mg capsule (9 sources) Start: 02-22-2020 take 1 capsule by mouth once daily Damon-3 Fatty Acids (Fish Oil Concentrate) 1,000 mg capsule Active 1000 mg PO DAILY February 22, 2020 12:00am Start: 02-22-2020 take 1 capsule by mo uth once daily Damon-3 Fatty Acids (Fish Oil Concentrate) 1,000 mg capsule Active 1000 MG PO DAILY February 21, 2020 11:00pm Start: 02-22-2020 take 1 capsule by mo uth once daily Damon-3 Fatty Acids (Fish Oil Concentrate) 1,000 mg capsule Active 1000 MG PO DAILY February 22, 2020 12:00am Senna Leaves (3 sources) Start: 12-11-2019 take 2 tablets by mouth once daily at bedtime Senna Lax Oral, qHS, 2 tablets daily with plenty of water Needs instruction from , 0 Refill(s) Start Date: 12/11/19 Status: Ordered simethicone 80 mg chewable tablet (20 sources) Start: 05-02-2020 take 1 tablet by mouth four times daily as needed simethicone 80 mg oral tablet, chewable See Instructions, 1 tab(s) Chewed BID- QID prn per endo records, 0 Refill(s) Start Date: 05/02/20 Status: Ordered Repeat number: 1 Start: 02-22-2020 Simethicone 80 mg tablet,chewable Active 80 mg PO 2 to 4 times per day as needed for abdominal distention February 22, 2020 12:00am vedolizumab 300 mg injection (1 source) Integrin Receptor Antagonist Start: 08-03-2025 Vedolizumab (Entyvio ) 300 mg recon soln Active 300 mg .Route August 03, 2025 12:00am 300 mg IV every 8 Weeks Vitamin B Complex (B Complex-Vitamin B12) tablet (9 sources) Start: 02-22-2020 Vitamin B Comp christine (B Complex-Vitamin B12) tablet Active 1 {tbl} PO DAILY February 22, 2020 12:00am Start: 02-22-2020 take 1 tablet by adriano th once daily Vitamin B Complex (B Complex-Vitamin B12) tablet Active 1 TABLET PO DAILY February 21, 2020 11:00pm Start: 02-22-2020 take 1 tablet by adriano th once daily Vitamin B Complex (B Complex-Vitamin B12) tablet Active 1 TABLET PO DAILY February 22, 2020 12:00am Vitamin B Complex 100 (13 sources) Start: 12-11-2019 Vitamin B Comp christine 100 one daily, 0 Refill(s) Start Date: 12/11/19 Status: Ordered Repeat number: 1 Start: 12-11-2019 Vitamin B Comp christine 100 one daily, 0 Refill(s) Start Date: 12/11/19 Status: Ordered vitamin E 200 intl units oral capsule (6 sources) Start: 12-11-2019 vitamin E 200 intl units oral capsule Dose : 200 International_Unit = 1 cap(s), Oral, Daily, 0 Refill(s) Start Date: 12/11/19 Status: Ordered Vitamins A,C,Z-Kyxy-Zvtsyc (Preservision Areds) 4,296 mcg-226 mg-90 mg capsule (4 sources) Start: 08-04-2024 Vitamins A,C,E -Zinc-Copper (Preservision Areds) 4,296 mcg-226 mg-90 mg capsule Active 1 NMA PO DAILY August 04, 2024 12:00am Completed/Discontinued Medications Medication Drug Class(es) Dates Sig (Normalized) Sig (Original) alendronic acid 70 mg oral tablet (20 sources) Bisphosphonate Start: 07-22-2020 End: 08-22-2023 take 1 tablet by mouth every week Alendronate 70 mg tablet Discontinued 70 mg PO EVERY WEEK 12 2 December 11, 2021 11:58am August 27, 2022 10:29am amoxicillin 875 mg / clavulanate 125 mg oral tablet (4 sources) Penicillin-class Antibacterial Start: 12-05-2023 End: 12-15-2023 Amoxicillin-Pot Clavulanate 875-125 mg tablet Discontinued 1 {tbl} PO Q12H 20 10 0 December 05, 2023 1:00am December 14, 2023 1:00am December 15, 2023 1:05am Acute sinusitis, unspecified Calcium Carbonate 390 mg calcium (1,000 mg) tablet (4 sources) Start: 02-22-2020 End: 08-24-2020 take 1 tablet by mouth once daily Calcium Carbonate 390 mg calcium (1,000 mg) tablet Discontinued 390 mg PO DAILY February 22, 2020 12:00am August 24, 2020 11:27am chromium picolinate 0.2 mg oral tablet (15 sources) Start: 02-22-2020 End: 08-24-2020 take 1 tablet by mouth once daily Chromium Picolinate 200 mcg tablet Discontinued 200 ug PO DAILY February 22, 2020 12:00am August 24, 2020 11:28am Start: 12-11-2019 chromium picol inate 200 mcg oral capsule Dose : 200 mcg = 1 cap(s), Oral, qDay, 0 Refill(s) Start Date: 12/11/19 Status: Ordered ciprofloxacin 500 mg oral tablet (9 sources) Quinolone Antimicrobial Start: 08-23-2016 End: 02-22-2020 take 1 tablet by mouth twice daily Ciprofloxacin Hcl 500 MG tablet Discontinued 500 mg PO TWICE A DAY August 23, 2016 12:00am February 22, 2020 9:31am dicyclomine hydrochloride 10 mg oral capsule (9 sources) Anticholinergic Start: 08-23-2016 End: 02-22-2020 take 1 capsule by mouth four times daily as needed for diarrhea Dicyclomine 10 MG capsule Discontinued 10 mg PO 4 TIMES DAILY as needed for Diarrhea 30 0 August 23, 2016 4:20pm February 22, 2020 9:32am causes drowsiness kevon root extract-fennel seed extract 5 mg-4 mg/5 mL oral liquid (5 sources) Start: 02-22-2020 End: 02-22-2020 kevon root extract-fennel seed extract 5 mg-4 mg/5 mL oral liquid Discontinued ML PO February 21, 2020 11:00pm February 22, 2020 9:18am Start: 02-22-2020 End: 02-22-2020 kevon root extract-fennel s eed extract 5 mg-4 mg/5 mL oral liquid Discontinued ML PO February 22, 2020 12:00am February 22, 2020 10:18am Kevon Root Xt-Fennel Sd Xt 5-4 mg/5 mL liquid (4 sources) Start: 02-22-2020 End: 02-22-2020 Kevon Root Xt-Fennel Sd Xt 5-4 mg/5 mL liquid Discontinued mL PO February 22, 2020 12:00am February 22, 2020 10:18am levothyroxine sodium 0.05 mg oral tablet (20 sources) l-Thyroxi ne Start: 08-29-2021 End: 07-26-2025 take 1 tablet by mouth once daily Levothyroxine 50 mcg tablet Discontinued 50 ug PO DAILY 90 2 January 31, 2024 9:36am August 04, 2024 10:36am Start: 08-24-2020 End: 08-29-2021 take 2 tablets by mouth once daily Levothyroxine 50 mcg tablet Discontinued 50 ug PO DAILY 90 0 August 14, 2021 10:08am August 29, 2021 4:30pm 50 mcg daily , skip Sat, 2 tabs on Saturday Start: 03-11-2020 levothyroxine 50 mcg (0.05 mg) oral tablet Dose : 50 mcg = 1 tab(s), Oral, qDay, One daily sat-sat, none on Saturday, 2 tablets on Saturday, 0 Refill(s) Start Date: 03/11/20 Status: Ordered Repeat number: 1 Start: 02-22-2020 End: 08-24-2020 take 1 tablet by mouth once daily Levothyroxine 50 mcg tablet Discontinued 50 ug PO DAILY 90 3 February 22, 2020 12:00am August 24, 2020 11:29am meloxicam 15 mg oral tablet (10 sources) Nonsteroidal Anti-inflammatory Drug Start: 12-05-2023 End: 08-04-2024 take 1 tablet by mouth once daily Meloxicam 15 mg tablet Discontinued 15 mg PO DAILY December 05, 2023 1:00am August 04, 2024 10:43am Start: 05-27-2023 End: 08-25-2023 meloxicam 15 mg oral tablet Dose : 15 mg = 1 tab(s), Oral, qDayM, PRN Pain, Take with food/milk. Do not take any other NSAIDs while on this med., # 90 tab(s), 0 Refill(s), Pharmacy: [facility], 151.5, cm, 05/01/23 10:24:00 EDT, Height, kg, 05/01/23 10:24:00 EDT, Dosing Weight Start Date: 05/27/23 Stop Date: 08/25/23 Status: Ordered Start: 02-05-2023 End: 03-07-2023 meloxicam 15 mg oral tablet Dose : 15 mg = 1 tab(s), Oral, qDayM, PRN Pain, Take with food/milk. Do not take any other NSAIDs while on this med., # 30 tab(s), 0 Refill(s), Pharmacy: [facility], 151.5, cm, 02/05/23 15:21:00 EST, Height Start Date: 02/05/23 Stop Date: 03/07/23 Status: Ordered Mesalamine 1.2 gram tablet,delayed release (DR/EC) (4 sources) Start: 08-04-2024 End: 08-03-2025 take 2 tablets by mouth once daily Mesalamine 1.2 gram tablet,delayed release (DR/EC) Discontinued 2.4 g PO daily August 04, 2024 12:00am August 03, 2025 10:36am Start: 08-04-2024 take 2 tablets by mo uth once daily Mesalamine 1.2 gram tablet,delayed release (DR/EC) Active 2.4 g PO daily August 04, 2024 12:00am methylPREDNISolone 4 mg oral tablet (4 sources) Corticosteroid Start: 12-05-2023 End: 12-11-2023 take 1 tablet by mouth once Methylprednisolone (Medrol (Sylvester)) 4 mg tablets,dose pack Discontinued 4 mg PO per package directions 21 6 0 December 05, 2023 1:00am December 10, 2023 1:00am December 11, 2023 1:04am polyethylene glycol 3350 [id number] mg powder for oral solution (7 sources) Osmotic Laxative Start: 01-10-2023 End: 08-04-2024 Polyethylene Glycol 3350 (Miralax) 17 gram/dose powder Discontinued 4 g PO DAILY January 10, 2023 1:00am August 04, 2024 10:43am sennosides, retirement 8.6 mg oral tablet (9 sources) Start: 02-22-2020 End: 02-22-2020 take 2 tablets by mouth at bedtime Sennosides (Senna Lax) 8.6 mg tablet Discontinued 17.2 mg PO AT BEDTIME February 22, 2020 12:00am February 22, 2020 10:18am vitamin e 90 mg oral capsule (9 sources) Start: 02-22-2020 End: 08-03-2025 take 1 capsule by mouth once daily Vitamin E 200 unit capsule Discontinued 200 U PO DAILY February 22, 2020 12:00am August 03, 2025 10:35am Problems Active Problems Problem Classification Problem Date Documented Da te Episodic/Chronic Abdominal hernia (13 sources) Hiatal hernia 01-14-2020 Episodic Acute bronchitis (4 sources) Acute bronchitis; Translations: [Acute bronchitis, unspecified] 12-05-2023 Episodic Chronic kidney disease (13 sources) Chronic kidney disease stage 2 03-14-2020 Chronic Conditions associated with dizziness or vertigo (13 sources) Dizziness; Translations: [Dizziness and giddiness] Onset: 3 03-12-2023 Episodic Deficiency and other anemia (15 sources) Anemia 01-14-2020 Episodic Deficiency and other anemia (16 sources) Iron deficiency anemia 04-13-2020 Episodic Comment on above: Per hematology, resu me slow FE. If anemia gets worse on this medication, or she develops stomach problems with Fosamax and further evaluation with anoscopy and possibly stopping Fosamax. Deficiency and other anemia (13 sources) Normocytic anemia 04-13-2020 Episodic Diabetes mellitus without complication (3 sources) Prediabetes 12-31-2024 Episodic Diseases of white blood cells (13 sources) Leukopenia 04-13-2020 Chronic Comment on above: Benign per hematolog y Disorders of lipid metabolism (20 sources) Hyperlipidemia 03-18-2023 Chronic Comment on above: 03/24 ascvd risk 6.0% 03/24 ascvd risk 5.8% 09/24 ASCVD risk 8.0 % Disorders of teeth and jaw (13 sources) Jaw pain 01-29-2020 Episodic Gastrointestinal hemorrhage (20 sources) Rectal hemorrhage; Translations: [Hematochezia] 12-11-2019 Episodic Genitourinary symptoms and ill-defined conditions (20 sources) Mixed urinary incontinence; Translations: [Incontinence] Onset: 3 02-05-2023 Chronic Headache; including migraine (13 sources) Chronic headache disorder 12-11-2019 Episodic Hemorrhoids (13 sources) Hemorrhoids 12-11-2019 Episodic Infective arthritis and osteomyelitis (except that caused by tuberculosis or sexually transmitted disease) (13 sources) Osteomyelitis of vertebra 12-22-2019 Chronic Mood disorders (13 sources) Depression 12-11-2019 Chronic Mycoses (10 sources) Candidal intertrigo 05-05-2023 Episodic Noninfectious gastroenteritis (8 sources) Colitis 09-02-2023 Episodic Nonmalignant breast conditions (13 sources) Fibrocystic changes of bilateral breasts 12-11-2019 Chronic Nonmalignant breast conditions (3 sources) Breast lump 10-26-2024 Episodic Nutritional deficiencies (1 source) Vitamin D deficiency, unspecified; Translations: [Vitamin D deficiency, unspecified] Onset: 5 Chronic Osteoporosis (20 sources) Osteoporosis; Translations: [Age-related osteoporosis without current pathological fracture] Onset: 5 Chronic Other acquired deformities (7 sources) Kyphosis deformity of spine; Translations: [Unspecified kyphosis, site unspecified] 08-20-2023 Chronic Other acquired deformities (3 sources) Unspecified kyphosis, site unspecified; Translations: [Kyphosis (acquired) (postural)] 08-20-2023 Chronic Other acquired deformities (13 sources) Lumbar spondylolisthesis 12-11-2019 Episodic Other and unspecified benign neoplasm (13 sources) Hemangioma 12-22-2019 Episodic Comment on above: T9 benign 14 mm on M RI 12/21 Other bone disease and musculoskeletal deformities (13 sources) Bone pain 01-29-2020 Episodic Other circulatory disease (11 sources) Orthostatic hypotension 03-12-2023 Episodic Other connective tissue disease (13 sources) Cramp in lower limb 12-11-2019 Episodic Other connective tissue disease (13 sources) Decrease in height 12-11-2019 Episodic Other diseases of kidney and ureters (13 sources) Cyst of kidney 02-22-2020 Episodic Comment on above: simple appearing on US 02/18 Other fractures (13 sources) Compression fracture of lumbar spine 12-22-2019 Episodic Other fractures (20 sources) Compression fracture of thoracic spine 12-11-2019 Episodic Other fractures (13 sources) Compression fracture of vertebral column 01-14-2020 Episodic Other gastrointestinal disorders (13 sources) Constipation 01-14-2020 Episodic Other infections; including parasitic (13 sources) H/O: infectious disease 12-11-2019 Episodic Other infections; including parasitic (13 sources) History of glandular fever 03-17-2020 Episodic Other screening for suspected conditions (not mental disorders or infectious disease) (15 sources) Raised TSH level; Translations: [Encounter for screening for malignant neoplasm of colon] Onset: 3 01-14-2020 Episodic Other skin disorders (10 sources) Mass of neck 08-05-2023 Episodic Other upper respiratory infections (4 sources) Acute sinusitis; Translations: [Acute sinusitis, unspecified] 12-05-2023 Episodic Pathological fracture (13 sources) Collapse of vertebra 12-11-2019 Episodic Crista-; endo-; and myocarditis; cardiomyopathy (except that caused by tuberculosis or sexually transmitted disease) (13 sources) Ejection murmur 12-11-2019 Chronic Regional enteritis and ulcerative colitis (9 sources) Crohn's disease; Translations: [Crohn's disease of large intestine without complications] Onset: 5 09-22-2024 Chronic Residual codes; unclassified (13 sources) Poor short-term memory 12-11-2019 Episodic Residual codes; unclassified (11 sources) Peripheral edema 03-12-2023 Episodic Spondylosis; intervertebral disc disorders; other back problems (20 sources) Schmorl's nodes of lumbar region 12-11-2019 Chronic Spondylosis; intervertebral disc disorders; other back problems (20 sources) Backache; Translations: [Low back pain] 03-11-2020 Episodic Thyroid disorders (20 sources) Non-toxic multinodular goiter; Translations: [Nontoxic multinodular goiter] Onset: 5 Chronic Unclassified (13 sources) Mammogram declined 03-11-2020 Unclassified (10 sources) Mild tricuspid valve regurgitation 03-18-2023 Past or Other Problems Problem Classification Problem Date Documented Da te Episodic/Chronic Nutritional deficiencies (4 sources) Iron deficiency; Translations: [Iron deficiency] Onset: 01-14-2025 12-23-2024 Episodic Results Test Name Value Interpretation Reference Range Facility Endocrinology Visit Reporton 08-03-2025 Endocrinology Visit Report [facility] [address] [place] [address] OFFICE VISIT Date of Service: 08/03/25 MR#: [id number] Acct: [id number] Name: NIKI MEYER Rep #: [id number] : 1955 Provider: Shaye Bermeo Age/Sex: 70/F Location: [facility] [place] Status: Signed Intake Vital Signs 08/04/24 10:24 01/14/25 14:02 08/03/25 10:28 Height 5 ft 5 ft 5 ft Weight: 122 lb BMI 23.8 BP 127/61 H Blood Pressure Location Lt brachial Position Sitting Pulse 85 Pulse Source Monitor Pulse Oximetry (%) 98 Oxygen Delivery Method room air Intake Visit Reasons: 1 Y FU - Prolia B B Chief Complaint: Bone, thyroid Chicken Handler Required: No Accompanied by: Is patient in pain?: Yes (Headache/Back) Pain scale (1-10): 3 Allergies monosodium glutamate Allergy (Mild, Verified 08/03/25 10:32) pain caffeine Allergy (Unknown, Verified 08/03/25 10:32) Unknown peanut Allergy (Unknown, Verified 08/03/25 10:32) Other Sulfa (Sulfonamide Antibiotics) Allergy (Unknown, Verified 08/03/25 10:32) Unknown cromolyn (From Nasalcrom) Allergy (Verified 08/03/25 10:32) Rash adhesive tape Adverse Reaction (Intermediate, Verified 08/03/25 10:32) Rash chocolate Adverse Reaction (Intermediate, Verified 08/03/25 10:32) Abd cramps/diarrhea polyethylene glycol (From Golytely) Adverse Reaction (Intermediate, Verified 08/03/25 10:32) burning skin polyethylene glycol 3350 (From Golytely) Adverse Reaction (Intermediate, Verified 08/03/25 10:32) burning skin potassium chloride (From Golytely) Adverse Reaction (Intermediate, Verified 08/03/25 10:32) burning skin sodium (From Golytely) Adverse Reaction (Intermediate, Verified 08/03/25 10:32) burning skin sodium bicarbonate (From Golytely) Adverse Reaction (Intermediate, Verified 08/03/25 10:32) burning skin sodium chloride (From Golytely) Adverse Reaction (Intermediate, Verified 08/03/25 10:32) burning skin sodium sulfate (From Golytely) Adverse Reaction (Intermediate, Verified 08/03/25 10:32) burning skin diclofenac (From Voltaren) Adverse Reaction (Mild, Verified 08/03/25 10:33) Rash pollen extracts Adverse Reaction (Unknown, Verified 08/03/25 10:32) Other Medications ???Medication ???Instructions ???Recorded ???Confirmed ???Type acetaminophen 325 mg capsule 650 mg PO Q4H PRN pain 02/22/20 History multivitamin 1 tab PO DAILY 02/22/20 08/03/25 H istory omega-3 fatty acids 1,000 mg 1,000 mg PO DAILY 02/22/20 5 History capsule (Fish Oil Concentrate) simethicone 80 mg chewable tablet 80 mg PO BID-QID PRN abdominal 08/03/25 History distention vitamin B complex (B 1 tab PO DAILY 02/22/20 08/03/25 H istory Complex-Vitamin B12 tablet) ascorbic acid (vitamin C) 1,000 mg 1 g PO DAILY 08/20/23 08/03/25 H istory capsule denosumab 60 mg/mL subcutaneous 60 mg subcut [id number] #1 mL 08/03/25 Rx syringe (Prolia) calcium carbonate (Antacid 200 - 800 mg PO DAILY PRN 08/04/24 08/03/25 History (calcium carbonate)) ferrous sulfate 45 mg PO BID 08/04/24 08/03/25 His tory vitamins A,C,D-qvsf-rbllda 4,296 1 cap PO DAILY 08/04/24 08/03/25 H istory mcg-226 mg-90 mg capsule (PreserVision AREDS) levothyroxine 50 mcg tablet 50 mcg PO DAILY #90 tabs 07/26/25 08/03/25 Rx calcium 600 mg (as carbonate)-vit 1 tab PO BID 08/03/25 08/03/25 Hi story D3 10 mcg (400 unit) chewable tablet (Calcium 600 with Vitamin D3) nystatin 100,000 unit/gram topical 1 applic topical BID PRN 5 08/03/25 History cream vedolizumab 300 mg intravenous 300 mg .Route 08/03/25 08/03/25 Hi story solution (Entyvio) Have you fallen in the past year?: No PFSH Medical History Kyphosis T12 compression fracture Systolic ejection murmur Short-term memory loss Schmorl's nodes of lumbar region Renal cyst, right Rectal bleeding Osteoporosis Loss of height Leg cramp Jaw pain Infection of spine History of amebiasis Hiatal hernia External hemorrhoid Hemangioma of spine Fibrocystic breast changes of both breasts Elevated TSH Depression Decreased GFR Constipation Compression fracture of thoracic vertebra Compression fracture of lumbar vertebra Compression deformity of vertebra Chronic headaches Bone pain Back pain Anterolisthesis Thyroid nodule Normocytic anemia Leukopenia Surgical History History of colonoscopy Family History Father Myocardial infarction Hepatitis Social History Smoking Status: Never smoker alcohol intake: never substance use (more content not included)... Normal [facility] Absolute lymphocyte countOrd ered By: Kirk Avalos on 05-26-2025 Lymphocytes Auto (Unsp spec) [#/Vol] 1.19 10*3/uL 0.83-4.51 [facility] Absolute neutrophil countOrd ered By: Kirk Avalos on 05-26-2025 Neutrophils (Bld) [#/Vol] 2.0 10*3/uL 2.0-7.7 [facility] Automated lymphocyte count a s percentage of total leukocytesOrdered By: Kirk Avalos on 05-26-2025 Lymphocytes/100 WBC Auto (Unsp spec) 31.8 % 19-41 [facility] Basophil percentageOrdered B y: Kirk Avalos on 05-26-2025 Basophils/100 WBC (Bld) 0.8 % 0-1 [facility] CBC W/Diff, Automatedon 05-03 Absolute Lymph 1.19 X10 3/uL Normal 0.83-4.51 [facility] Comment on above: Performed By: #### L 503.6550, L503.6150, L501.6710, L100.0100 ####[facility] [address] [place], [address] Absolute Neut 2.0 X10 3/uL Normal 2.0-7.7 [facility] Comment on above: Performed By: #### L 503.6550, L503.6150, L501.6710, L100.0100 ####[facility] [address] [place], [address] Basophils/100 WBC (Bld) 0.8 % Normal 0-1 [facility] Comment on above: Performed By: #### L 503.6550, L503.6150, L501.6710, L100.0100 ####[facility] [address] [place], [address] Eosinophils/100 WBC (Bld) 3.2 % Normal 0-5 [facility] Comment on above: Performed By: #### L 503.6550, L503.6150, L501.6710, L100.0100 ####[facility] [address] [place], [address] Erythrocyte distribution width (RBC) [Ratio] 14.6 % Normal 11.6-14.6 [facility] Comment on above: Performed By: #### L 503.6550, L503.6150, L501.6710, L100.0100 ####[facility] [address] [place], [address] Hematocrit (Bld) [Volume fraction] 37.3 % Normal 37-47 [facility] Comment on above: Performed By: #### L 503.6550, L503.6150, L501.6710, L100.0100 ####[facility] [address] [place], [address] Hemoglobin (Bld) [Mass/Vol] 12.0 g/dL Normal 12.0-15.0 [facility] Comment on above: Performed By: #### L 503.6550, L503.6150, L501.6710, L100.0100 ####[facility] [address] [place], [address] IG% 0.300 Normal 0.0-0.9 [facility] Comment on above: Result Comment: IG% - Immature Granulocytes (promyelocytes, myelocytes and metamyelocytes) > 1% indicates that a LEFT SHIFT is Present. Performed By: #### L 503.6550, L503.6150, L501.6710, L100.0100 ####[facility] [address] [place], [address] Lymphocytes/100 WBC (Bld) 31.8 % Normal 19-41 [facility] Comment on above: Performed By: #### L 503.6550, L503.6150, L501.6710, L100.0100 ####[facility] [address] [place], [address] MCH (RBC) [Entitic mass] 29.6 pg Normal 27.0-32.0 [facility] Comment on above: Performed By: #### L 503.6550, L503.6150, L501.6710, L100.0100 ####[facility] [address] [place], [address] MCHC (RBC) [Mass/Vol] 32.2 g/dL Normal 32-36 [facility] Comment on above: Performed By: #### L 503.6550, L503.6150, L501.6710, L100.0100 ####[facility] [address] [place], [address] MCV (RBC) [Entitic vol] 91.9 fL Normal 81-99 [facility] Comment on above: Performed By: #### L 503.6550, L503.6150, L501.6710, L100.0100 ####[facility] [address] [place], [address] Monocytes/100 WBC (Bld) 10.4 % High 0-10 [facility] Comment on above: Performed By: #### L 503.6550, L503.6150, L501.6710, L100.0100 ####[facility] [address] [place], [address] Neutrophils/100 WBC (Bld) 53.5 % Normal 47-70 [facility] Comment on above: Performed By: #### L 503.6550, L503.6150, L501.6710, L100.0100 ####[facility] [address] [place], [address] Nucleated RBC (Bld) [#/Vol] 0 10*3/uL Normal 0-5 [facility] Comment on above: Performed By: #### L 503.6550, L503.6150, L501.6710, L100.0100 ####[facility] [address] [place], [address] Platelet mean volume (Bld) [Entitic vol] 10.4 fL Normal 6.2-12.0 [facility] Comment on above: Performed By: #### L 503.6550, L503.6150, L501.6710, L100.0100 ####[facility] [address] [place], [address] Platelets (Bld) [#/Vol] 218 10*3/uL Normal 150-450 [facility] Comment on above: Performed By: #### L 503.6550, L503.6150, L501.6710, L100.0100 ####[facility] [address] [place], [address] RBC (Bld) [#/Vol] 4.06 10*6/uL Low 4.2-5.[address] [facility] Comment on above: Performed By: #### L 503.6550, L503.6150, L501.6710, L100.0100 ####[facility] [address] [place], [address] RDW SD 49.7 fl High 35.1-43.9 [facility] Comment on above: Performed By: #### L 503.6550, L503.6150, L501.6710, L100.0100 ####[facility] [address] [place], [address] WBC (Bld) [#/Vol] 3.7 10*3/uL Low 4.4-11.0 [facility] Comment on above: Performed By: #### L 503.6550, L503.6150, L501.6710, L100.0100 ####[facility] [address] [place], [address] CRPon 05-26-2025 C-REACTIVE PROT 6.63 mg/L High 0.0-3.0 [facility] Comment on above: Order Comment: FAX R ESULTS TO [phone] Performed By: #### L 503.6550, L503.6150, L501.6710, L100.0100 ####[facility] [address] [place], [address] Eosinophil percentageOrdered By: Kirk Avalos on 05-26-2025 Eosinophils/100 WBC (Bld) 3.2 % 0-5 [facility] Erythrocyte distribution wid th ratioOrdered By: Kirk Avalos on 05-26-2025 Erythrocyte distribution width (RBC) [Ratio] 14.6 % 11.6-14.6 [facility] Erythrocyte distribution wid th standard deviationOrdered By: Kirk Avalos on 05-26-2025 Erythrocyte distribution width (RBC) [Ratio] 49.7 fl High 35.1-43.9 [facility] Ferritinon 05-26-2025 Ferritin [Mass/Vol] 257 ng/mL Normal 22-[address] [facility] Comment on above: Order Comment: FAX R ESULTS TO [phone] Performed By: #### L 503.6550, L503.6150, L501.6710, L100.0100 ####[facility] [address] [place], [place], [id number] Hematocrit Auto (Bld) [Volum e fraction]Ordered By: Kirk Avalos on 05-26-2025 Hematocrit (Bld) [Volume fraction] 37.3 % 37-47 [facility] Hemoglobin measurementOrdere d By: Kirk Avalos on 05-26-2025 Hemoglobin (Bld) [Mass/Vol] 12.0 g/dL 12.0-15.0 [facility] Immature granulocytes/100 WB C Auto (Bld)Ordered By: Kirk Avalos on 05-26-2025 Immature granulocytes/100 WBC (Bld) 0.300 % 0.0-0.9 [facility] Comment on above: IG% - Immature Granu locytes (promyelocytes, myelocytes and metamyelocytes) > 1% indicates that a LEFT SHIFT is Present. Ironon 05-26-2025 Iron [Mass/Vol] 56 ug/dL Normal 50-170 [facility] Comment on above: Order Comment: FAX R ESULTS TO [phone] Performed By: #### L 503.6550, L503.6150, L501.6710, L100.0100 ####[facility] [address] [place], [place], [id number] Iron measurement (mass/mass) Ordered By: Kirk Avalos on 05-26-2025 Iron (Unsp spec) [Mass/Mass] 56 ug/dL 50-170 [facility] MCV (mean corpuscular volume ) determinationOrdered By: Kirk Avalos on 05-26-2025 MCV (RBC) [Entitic vol] 91.9 fL 81-99 [facility] Mean corpuscular hemoglobin (MCH) determinationOrdered By: Kirk Avalos on 05-26-2025 MCH (RBC) [Entitic mass] 29.6 pg 27.0-32.0 [facility] Mean corpuscular hemoglobin concentration (MCHC) determinationOrdered By: Kirk Avalos on 05-26-2025 MCHC (RBC) [Mass/Vol] 32.2 g/dL 32-36 [facility] Mean platelet volume determi nationOrdered By: Kirk Avalos on 05-26-2025 Platelet mean volume (Bld) [Entitic vol] 10.4 fL 6.2-12.0 [facility] Monocyte percentageOrdered B y: Kirk Avalos on 05-26-2025 Monocytes/100 WBC (Bld) 10.4 % High 0-10 [facility] Neutrophil percentageOrdered By: Kirk Avalos on 05-26-2025 Neutrophils/100 WBC (Bld) 53.5 % 47-70 [facility] Nucleated red blood cell per centageOrdered By: Kirk Avalos on 05-26-2025 Nucleated RBC/100 WBC (Bld) [Ratio] 0 % 0-5 [facility] Platelet countOrdered By: Anita Avalos on 05-26-2025 Platelets (Bld) [#/Vol] 218 10*3/uL 150-450 [facility] RBC Auto (Bld) [#/Vol]Ordere d By: Kirk Avalos on 05-26-2025 RBC (Bld) [#/Vol] 4.06 10*6/uL Low 4.2-5.[address] [facility] Serum or plasma C reactive p rotein measurement (mass/volume)Ordered By: Kirk Avalos on 05-26-2025 CRP [Mass/Vol] 6.63 mg/L High 0.0-3.0 [facility] Serum or plasma ferritin nicol surement (mass/volume)Ordered By: Kirk Avalos on 05-26-2025 Ferritin [Mass/Vol] 257 ng/mL 22-[address] [facility] White blood cell (WBC) count Ordered By: Kirk Avalos on 05-26-2025 WBC (Bld) [#/Vol] 3.7 10*3/uL Low 4.4-11.0 [facility] US BREAST BILATERAL COMPLETE on 04-23-2025 US BREAST BILATERAL COMPLETE ADDENDUM ADDENDUM: The hypoechoic area is in the right breast, as noted in the findings, not the left breast. Interpreted by: Ernie Garcia MD Preliminary Report By: Ernie Garcia MD Electronically signed By Ernie Garcia MD Dictated Date: 04/23/2025 5:06:06 PM Prelim Date: 04/23/2025 5:07:44 PM Sign Date: 04/23/2025 5:07:44 PM Ordering Provider: MARCO MENSAH ORIGINAL FROM: [address] [address] PROCEDURE FOR: NIKI MEYER [address] [place] [id number] Home: PID#: [id number] Exam#: [id number] : 1955 Age: 69 TO: MARCO MENSAH DO [address] [place], [place] [address] Fax: NO FAX EXAMINATION: ULTRASOUND OF THE BILATERAL BREASTS 10/19/2024 10:51 am TECHNIQUE: Color flow and potts scale targeted ultrasound of the bilateral breasts were performed. Permanently stored images were reviewed. COMPARISON: None. HISTORY: ORDERING SYSTEM PROVIDED HISTORY: Reason for Exam: SCREENING FINDINGS: Exam is slightly compromised due to patient's kyphosis. In the right breast there is an 8 x 8 x 3 mm oval hypoechoic area, this demonstrates some edge shadowing but has no definite vascularity. IMPRESSION: There is a hypoechoic area in the left breast, 2 o'clock, 2 cm from the nipple a which may relate to a prominent fat lobule, fibroadenoma, complicated cyst or area of fibrosis and is probably benign, a follow-up ultrasound in 6 months is recommended to document stability. BIRADS: BI-RADS: 3: Probably Benign RECALL: 6 month follow-up RECALL TYPE: US LETTER SENT: Probably Benign BI-RADS 3 Interpreted by: Ernie Garcia MD Preliminary Report By: Ernie Garcia MD Electronically signed By Ernie Garcia MD Dictated Date: 10/19/2024 4:55:35 PM Prelim Date: 10/19/2024 5:00:18 PM Sign Date: 10/19/2024 5:00:18 PM Ordering Provider: MARCO MENSAH CLINICAL: SCREENING. Vice President Global Advertising Sales: CHERYL ANGUIANO RDMS letter sent: Probably Benign BI-RADS 3 Ultrasound BI-RADS: 3 Probably benign Normal [facility] US BREAST BILATERAL LIMITEDo n 04-20-2025 US BREAST BILATERAL LIMITED ORIGINAL FROM: [facility] [address] [place] [address] PROCEDURE FOR: NIKI MEYER [address] [place] [address] Home: PID#: [id number] Exam#: [id number] : 1955 Age: 70 TO: MARCO MENSAH DO [address] [place], [place] [address] Fax: NO FAX EXAMINATION: ULTRASOUND OF THE BILATERAL BREASTS 04/20/2025 10:01 am TECHNIQUE: Color flow and potts scale targeted ultrasound of the left breast upper outer quadrant and right breast 2 o'clock were performed. Permanently stored images were reviewed. COMPARISON: October 19, 2024 HISTORY: ORDERING SYSTEM PROVIDED HISTORY: Reason for Exam: follow up right breast mass FINDINGS: The patient is declining mammography. In the upper-outer quadrant of the left breast, normal breast parenchyma is identified without a discrete solid or cystic mass. In the right breast at 2 o'clock 2 cm from the nipple, there is a structure measuring 0.9 cm, likely representing normal fibroglandular tissue. IMPRESSION: The patient is declining mammography. No suspicious sonographic finding in the upper-outer quadrant of the right breast. Structure in the right breast at 2 o'clock 2 cm from the nipple likely representing normal fibroglandular tissue, benign. The patient should return to annual screening mammography. BIRADS: BI-RADS: 2: Benign RECALL: return to screening RECALL TYPE: mammo LETTER SENT: Normal BI-RADS 1 and 2 Interpreted by: Agnes Cunningham Preliminary Report By: Agnes Cunningham Electronically signed By Agnes Cunningham Dictated Date: 04/20/2025 1:48:55 PM Prelim Date: 04/20/2025 1:50:32 PM Sign Date: 04/20/2025 1:50:32 PM Ordering Provider: MARCO MENSAH Vice President [employer] Sales: ELIANA CANALES RT(Lesa)(M), RDMS letter sent: Normal BI-RADS 1 and 2 Ultrasound BI-RADS: 2 Benign Normal [facility] Anion gap in Serum or Plasma Ordered By: Kirk Avalos on 04-14-2025 Anion gap [Moles/Vol] 13 mmol/L 04-15 [facility] BUN/creatinine ratioOrdered By: Kirk Avalos on 04-14-2025 Urea nitrogen/Creatinine [Mass ratio] 26.0 mg/mg High 09-20 [facility] Bilirubin, totalOrdered By: Kirk Avalos on 04-14-2025 Bilirubin [Mass/Vol] 0.25 mg/dL 0.00-1.30 [facility] CBC-Complete Blood Cnt No Di ffon 04-14-2025 Erythrocyte distribution width (RBC) [Ratio] 14.7 % High 11.6-14.6 [facility] Comment on above: Performed By: #### L 500.4050, L501.6710, L503.6550, L100.0500, L101.9900, L503.6150 ####[facility] [address] [place], [address] Hematocrit (Bld) [Volume fraction] 35.3 % Low 37-47 [facility] Comment on above: Performed By: #### L 500.4050, L501.6710, L503.6550, L100.0500, L101.9900, L503.6150 ####[facility] [address] [place], [address] Hemoglobin (Bld) [Mass/Vol] 11.4 g/dL Low 12.0-15.0 [facility] Comment on above: Performed By: #### L 500.4050, L501.6710, L503.6550, L100.0500, L101.9900, L503.6150 ####[facility] [address] [place], [address] MCH (RBC) [Entitic mass] 29.6 pg Normal 27.0-32.0 [facility] Comment on above: Performed By: #### L 500.4050, L501.6710, L503.6550, L100.0500, L101.9900, L503.6150 ####[facility] [address] [place], [address] MCHC (RBC) [Mass/Vol] 32.3 g/dL Normal 32-36 [facility] Comment on above: Performed By: #### L 500.4050, L501.6710, L503.6550, L100.0500, L101.9900, L503.6150 ####[facility] [address] [place], [address] MCV (RBC) [Entitic vol] 91.7 fL Normal 81-99 [facility] Comment on above: Performed By: #### L 500.4050, L501.6710, L503.6550, L100.0500, L101.9900, L503.6150 ####[facility] [address] [place], [address] Platelet mean volume (Bld) [Entitic vol] 10.9 fL Normal 6.2-12.0 [facility] Comment on above: Performed By: #### L 500.4050, L501.6710, L503.6550, L100.0500, L101.9900, L503.6150 ####[facility] [address] [place], [address] Platelets (Bld) [#/Vol] 225 10*3/uL Normal 150-450 [facility] Comment on above: Performed By: #### L 500.4050, L501.6710, L503.6550, L100.0500, L101.9900, L503.6150 ####[facility] [address] [place], [address] RBC (Bld) [#/Vol] 3.85 10*6/uL Low 4.2-5.[address] [facility] Comment on above: Performed By: #### L 500.4050, L501.6710, L503.6550, L100.0500, L101.9900, L503.6150 ####[facility] [address] [place], [address] RDW SD 50.1 fl High 35.1-43.9 [facility] Comment on above: Performed By: #### L 500.4050, L501.6710, L503.6550, L100.0500, L101.9900, L503.6150 ####[facility] [address] [place], [address] WBC (Bld) [#/Vol] 4.4 10*3/uL Normal 4.4-11.0 [facility] Comment on above: Performed By: #### L 500.4050, L501.6710, L503.6550, L100.0500, L101.9900, L503.6150 ####[facility] [address] [place], [address] CRPon 04-14-2025 C-REACTIVE PROT 10.70 mg/L High 0.0-3.0 [facility] Comment on above: Performed By: #### L 500.4050, L501.6710, L503.6550, L100.0500, L101.9900, L503.6150 ####[facility] [address] [place], [address] Carbon dioxide, total [Moles /volume] in Central venous bloodOrdered By: Kirk Avalos on 04-14-2025 CO2 [Moles/Vol] 25.5 mmol/L 21.0-32.0 [facility] Chloride assayOrdered By: Anita Avalos on 04-14-2025 Chloride [Moles/Vol] 102 mmol/L 98-108 [facility] Comprehensive Metabolic Prof ilon 04-14-2025 Albumin [Mass/Vol] 4.0 g/dL Normal 3.4-4.8 [facility] Comment on above: Performed By: #### L 500.4050, L501.6710, L503.6550, L100.0500, L101.9900, L503.6150 ####[facility] [address] [place], [address] Albumin/Globulin [Mass ratio] 1.2 {ratio} Normal 0.9-2.4 [facility] Comment on above: Performed By: #### L 500.4050, L501.6710, L503.6550, L100.0500, L101.9900, L503.6150 ####[facility] [address] [place], [address] ALK PHOS 63 U/L Normal 35-104 [facility] Comment on above: Performed By: #### L 500.4050, L501.6710, L503.6550, L100.0500, L101.9900, L503.6150 ####[facility] [address] [place], [address] ALT [Catalytic activity/Vol] 18 U/L Normal <=34 [facility] Comment on above: Performed By: #### L 500.4050, L501.6710, L503.6550, L100.0500, L101.9900, L503.6150 ####[facility] [address] [place], [address] AST [Catalytic activity/Vol] 22 U/L Normal <=31 [facility] Comment on above: Performed By: #### L 500.4050, L501.6710, L503.6550, L100.0500, L101.9900, L503.6150 ####[facility] [address] [place], [address] Bilirubin [Mass/Vol] 0.25 mg/dL Normal 0.00-1.30 [facility] Comment on above: Performed By: #### L 500.4050, L501.6710, L503.6550, L100.0500, L101.9900, L503.6150 ####[facility] [address] [place], [address] BUN/CRE 26.0 RATIO High 10-20 [facility] Comment on above: Performed By: #### L 500.4050, L501.6710, L503.6550, L100.0500, L101.9900, L503.6150 ####[facility] [address] [place], [address] Calcium [Mass/Vol] 9.9 mg/dL Normal 7.6-11.0 [facility] Comment on above: Performed By: #### L 500.4050, L501.6710, L503.6550, L100.0500, L101.9900, L503.6150 ####[facility] [address] [place], [address] Chloride [Moles/Vol] 102 mmol/L Normal 98-108 [facility] Comment on above: Performed By: #### L 500.4050, L501.6710, L503.6550, L100.0500, L101.9900, L503.6150 ####[facility] [address] [place], [address] CO2 [Moles/Vol] 25.5 mmol/L Normal 21.0-32.0 [facility] Comment on above: Performed By: #### L 500.4050, L501.6710, L503.6550, L100.0500, L101.9900, L503.6150 ####[facility] [address] [place], [address] Creatinine [Mass/Vol] 0.73 mg/dL Normal 0.70-1.20 [facility] Comment on above: Performed By: #### L 500.4050, L501.6710, L503.6550, L100.0500, L101.9900, L503.6150 ####[facility] [address] [place], [address] GAP 13 Normal 5-15 [facility] Comment on above: Performed By: #### L 500.4050, L501.6710, L503.6550, L100.0500, L101.9900, L503.6150 ####[facility] [address] [place], [address] GFR/1.73 sq M.predicted among non-blacks MDRD (S/P/Bld) [Vol rate/Area] 88 mL/min/{1.73_m2} Normal >60 [facility] Comment on above: Result Comment: mL/m in/1.73m2 CKD-EPI Creatinine Equation (2020) Performed By: #### L 500.4050, L501.6710, L503.6550, L100.0500, L101.9900, L503.6150 ####[facility] [address] [place], [address] Globulin (S) [Mass/Vol] 3.3 g/dL Normal 2.2-4.2 [facility] Comment on above: Performed By: #### L 500.4050, L501.6710, L503.6550, L100.0500, L101.9900, L503.6150 ####[facility] [address] [place], [address] Glucose [Mass/Vol] 152 mg/dL High 70-99 [facility] Comment on above: Performed By: #### L 500.4050, L501.6710, L503.6550, L100.0500, L101.9900, L503.6150 ####[facility] [address] [place], [address] Potassium [Moles/Vol] 3.8 mmol/L Normal 3.3-5.1 [facility] Comment on above: Performed By: #### L 500.4050, L501.6710, L503.6550, L100.0500, L101.9900, L503.6150 ####[facility] [address] [place], [address] Sodium [Moles/Vol] 140 mmol/L Normal 133-145 [facility] Comment on above: Performed By: #### L 500.4050, L501.6710, L503.6550, L100.0500, L101.9900, L503.6150 ####[facility] [address] [place], [address] T PROT 7.3 g/dL Normal 5.9-8.4 [facility] Comment on above: Performed By: #### L 500.4050, L501.6710, L503.6550, L100.0500, L101.9900, L503.6150 ####[facility] [address] [place], [address] Urea nitrogen [Mass/Vol] 19 mg/dL Normal 4-19 [facility] Comment on above: Performed By: #### L 500.4050, L501.6710, L503.6550, L100.0500, L101.9900, L503.6150 ####[facility] [address] [place], [address] Erythrocyte Sed Rateon 04-14 SED RATE 32 mm/hr High 0-30 [facility] Comment on above: Performed By: #### L 500.4050, L501.6710, L503.6550, L100.0500, L101.9900, L503.6150 ####[facility] [address] [place], [place], [address] Erythrocyte distribution wid th ratioOrdered By: Kirk Avalos on 04-14-2025 Erythrocyte distribution width (RBC) [Ratio] 14.7 % High 11.6-14.6 [facility] Erythrocyte distribution wid th standard deviationOrdered By: Kirk Avalos on 04-14-2025 Erythrocyte distribution width (RBC) [Ratio] 50.1 fl High 35.1-43.9 [facility] Erythrocyte sedimentation ra teOrdered By: Kirk Avalos on 04-14-2025 ESR (Bld) [Velocity] 32 mm/h High 0-30 [facility] Ferritinon 04-14-2025 Ferritin [Mass/Vol] 209 ng/mL Normal 22-[address] [facility] Comment on above: Performed By: #### L 500.4050, L501.6710, L503.6550, L100.0500, L101.9900, L503.6150 ####[facility] [address] [place], [place], [id number] Glomerular filtration rate ( GFR) estimation/1.73 sq m using serum, plasma, or whole bOrdered By: Kirk Avalos on 04-14-2025 GFR/1.73 sq M.predicted among non-blacks MDRD (S/P/Bld) [Vol rate/Area] 88 mL/min/{1.73_m2} >60 [facility] Comment on above: mL/min/1.73m2 CKD-EP I Creatinine Equation (2020) Hematocrit Auto (Bld) [Volum e fraction]Ordered By: Kirk Avalos on 04-14-2025 Hematocrit (Bld) [Volume fraction] 35.3 % Low 37-47 [facility] Hemoglobin measurementOrdere d By: Kirk Avalos on 04-14-2025 Hemoglobin (Bld) [Mass/Vol] 11.4 g/dL Low 12.0-15.0 [facility] Ironon 04-14-2025 Iron [Mass/Vol] 36 ug/dL Low 50-170 [facility] Comment on above: Performed By: #### L 500.4050, L501.6710, L503.6550, L100.0500, L101.9900, L503.6150 ####[facility] [address] [place] [place], [address] Iron measurement (mass/mass) Ordered By: Kirk Avalos on 04-14-2025 Iron (Unsp spec) [Mass/Mass] 36 ug/dL Low 50-170 [facility] Laboratory - Chemistry and C hemistry - challengeOrdered By: Kirk Avalos on 04-14-2025 AST [Catalytic activity/Vol] 22 U/L <32 [facility] MCV (mean corpuscular volume ) determinationOrdered By: Kirk Avalos on 04-14-2025 MCV (RBC) [Entitic vol] 91.7 fL 81-99 [facility] Mean corpuscular hemoglobin (MCH) determinationOrdered By: Kirk Avalos on 04-14-2025 MCH (RBC) [Entitic mass] 29.6 pg 27.0-32.0 [facility] Mean corpuscular hemoglobin concentration (MCHC) determinationOrdered By: Kirk Avalos on 04-14-2025 MCHC (RBC) [Mass/Vol] 32.3 g/dL 32-36 [facility] Mean platelet volume determi nationOrdered By: Kirk Avalos on 04-14-2025 Platelet mean volume (Bld) [Entitic vol] 10.9 fL 6.2-12.0 [facility] Platelet countOrdered By: Anita Avalos on 04-14-2025 Platelets (Bld) [#/Vol] 225 10*3/uL 150-450 [facility] Potassium measurement (mass/ volume)Ordered By: Kirk Avalos on 04-14-2025 Potassium (Unsp spec) [Mass/Vol] 3.8 mmol/L 3.3-5.1 [facility] RBC Auto (Bld) [#/Vol]Ordere d By: Kirk Avalos on 04-14-2025 RBC (Bld) [#/Vol] 3.85 10*6/uL Low 4.2-5.[address] [facility] Serum creatinine measurement (mass/volume)Ordered By: Kirk Avalos on 04-14-2025 Creatinine [Mass/Vol] 0.73 mg/dL 0.70-1.20 [facility] Serum globulin measurementOr dered By: Kirk Avalos on 04-14-2025 Globulin (S) [Mass/Vol] 3.3 g/dL 2.2-4.2 [facility] Serum glucose measurement (m ass/volume)Ordered By: Kirk Avalos on 04-14-2025 Glucose [Mass/Vol] 152 mg/dL High 70-99 [facility] Serum or plasma C reactive p rotein measurement (mass/volume)Ordered By: Kirk Avalos on 04-14-2025 CRP [Mass/Vol] 10.70 mg/L High 0.0-3.0 [facility] Serum or plasma alanine sheridan otransferase (ALT) measurementOrdered By: Kirk Avalos on 04-14-2025 ALT [Catalytic activity/Vol] 18 U/L <35 [facility] Serum or plasma albumin mima urement (mass/volume)Ordered By: Kirk Avalos on 04-14-2025 Albumin [Mass/Vol] 4.0 g/dL 3.4-4.8 [facility] Serum or plasma albumin/glob ulin mass ratioOrdered By: Kirk Avalos on 04-14-2025 Albumin/Globulin [Mass ratio] 1.2 {ratio} 0.9-2.4 [facility] Serum or plasma alkaline reema sphatase measurementOrdered By: Kirk Avalos on 04-14-2025 ALP [Catalytic activity/Vol] 63 U/L 35-104 [facility] Serum or plasma calcium mima urement (mass/volume)Ordered By: Kirk Avalos on 04-14-2025 Calcium [Mass/Vol] 9.9 mg/dL 7.6-11.0 [facility] Serum or plasma ferritin nicol surement (mass/volume)Ordered By: Kirk Avalos on 04-14-2025 Ferritin [Mass/Vol] 209 ng/mL 22-[address] [facility] Serum or plasma urea nitroge n measurement (mass/volume)Ordered By: Kirk Avalos on 04-14-2025 Urea nitrogen [Mass/Vol] 19 mg/dL 4-19 [facility] Sodium levelOrdered By: Nika Avalos on 04-14-2025 Sodium [Moles/Vol] 140 mmol/L 133-145 [facility] Total proteinOrdered By: Jorge Alberto Avalos on 04-14-2025 Protein [Mass/Vol] 7.3 g/dL 5.9-8.4 [facility] White blood cell (WBC) count Ordered By: Kirk Avalos on 04-14-2025 WBC (Bld) [#/Vol] 4.4 10*3/uL 4.4-11.0 [facility] Office Visit Reporton 2024 Office Visit Report [facility] [address] [place] [address] OFFICE VISIT Date of Service: 02/01/25 MR#: [id number] Acct: [id number] Patient: NIKI MEYER Rep #: [id number] : 1955 Provider: Shaye Bermeo Age/Sex: 70/F Location: [facility] [place] Status: Signed Intake Vital Signs 08/04/24 10:24 01/14/25 14:02 Height 5 ft 5 ft Intake Visit Reasons: Prolia - B B Chief Complaint: Bone, thyroid Allergies monosodium glutamate Allergy (Mild, Verified 08/04/24 10:27) pain caffeine Allergy (Unknown, Verified 08/04/24 10:27) Unknown peanut Allergy (Unknown, Verified 08/04/24 10:27) Other Sulfa (Sulfonamide Antibiotics) Allergy (Unknown, Verified 08/04/24 10:27) Unknown cromolyn (From Nasalcrom) Allergy (Verified 08/04/24 10:27) Rash adhesive tape Adverse Reaction (Intermediate, Verified 08/04/24 10:27) Rash chocolate Adverse Reaction (Intermediate, Verified 08/04/24 10:27) Abd cramps/diarrhea polyethylene glycol (From Golytely) Adverse Reaction (Intermediate, Verified 08/04/24 10:27) burning skin polyethylene glycol 3350 (From Golytely) Adverse Reaction (Intermediate, Verified 08/04/24 10:27) burning skin potassium chloride (From Golytely) Adverse Reaction (Intermediate, Verified 08/04/24 10:27) burning skin sodium (From Golytely) Adverse Reaction (Intermediate, Verified 08/04/24 10:27) burning skin sodium bicarbonate (From Golytely) Adverse Reaction (Intermediate, Verified 08/04/24 10:27) burning skin sodium chloride (From Golytely) Adverse Reaction (Intermediate, Verified 08/04/24 10:27) burning skin sodium sulfate (From Golytely) Adverse Reaction (Intermediate, Verified 08/04/24 10:27) burning skin pollen extracts Adverse Reaction (Unknown, Verified 08/04/24 10:27) Other Have you fallen in the past year?: No Office Procedures Injections Procedure performed by: Dionne Christian Lot number: [id number] Natural Resource Officer: [employer] date: 05/31/27 Dose of injection: 1mL Site of injection: Sub-Q Medication Given: Yes Is this a patient provided medication?: No Office Meds Prolia 60 mg/mL subcutaneous syringe Performing Provider: Lincoln Hartley MD Performing Location: [facility] Administered by: Dionne Christian on 02/01/25 10:14 Dose Route Admin Location Dispensed Lot Number Expiration Date [facility] Man ufacturer 60 mg subcut Rt Arm 1 mL [id number] 05/31/27 09591-327-48 [employer] Assessment and Plan Assessment and Plan (1) Osteoporosis: Status: Chronic Qualifiers: Osteoporosis type: age-related Presence of current pathological fracture: without current pathological fracture Qualified Code(s): M81.0 - Age-related osteoporosis without current pathological fracture Orders: Orders Prolia Injection Today M81.0 - Age-related osteoporosis without current pathological fracture Clinical Quality Measures Falls Risk Screening/Assistive Devices Have you fallen in the past year?: No 02/01/25 1302 Date Lincoln Hartley MD Cosigner Signature: Date (if applicable) CC: [facility] Abdomen/Pelvis WITH Contrast on 01-27-2025 Abdomen/Pelvis WITH Contrast [facility] [address] [place], [place] [id number] Abdomen/Pelvis WITH Contrast MR#: [id number] Acct: [id number] Name: NIKI MEYER Rep #: [id number] : 1955 F 70 From: Osmany andrews MD PCP: Dr. Marco Mensah DO Status: REG CLI Study: Abdomen/Pelvis WITH Contrast Date of Exam: Exam# [id number] Ordering Dr: Kirk Avalos MD PROCEDURE: ABDOMEN/PELVIS WITH CONTRAST REASON FOR EXAM: Crohn's disease. Enterography. No acute symptoms at this time. TECHNIQUE: Abdomen and pelvis CT with intravenous contrast. Oral contrast was also used. IV CONTRAST: 100 cc of Isovue-300 was injected intravenously. COMPARISON: None. FINDINGS: Lung bases: Clear Liver: There is a 1.3 cm x 1.7 cm cyst in the anterior aspect of the right lobe of the liver. Subcentimeter cyst in the inferior aspect of the left lobe of the liver. Gallbladder: Unremarkable. Spleen: Unremarkable. Pancreas: Unremarkable. Adrenals: Unremarkable. Kidneys: Unremarkable. Bladder: Unremarkable. Reproductive Organs: Unremarkable. Bowel: Unremarkable.. Large hiatal hernia. Appendix: Normal. Lymph nodes: No suspicious lymph node enlargement. Vasculature: Major vascular structures are unremarkable. Peritoneum / Retroperitoneum: No ascites. No free air. Bones: Demineralization of the lumbar vertebrae. 50% loss of height of the T12 vertebrae. Loss of height of the superior endplates of the L3-L4 and L5 vertebrae. CT/Abdomen/Pelvis WITH Contrast IMPRESSION: Small hepatic cysts. Large hiatal hernia. One or more dose reduction techniques were used (e.g., Automated exposure control, adjustment of the mA and/or kV according to patient size, use of iterative reconstruction technique). Reading Location: [id number] CC: Dr. Marco Mensah DO; Dr. Kirk Avalos MD Information Support Project Manager: Signed Normal [facility] US THYROIDon 01-18-2025 US THYROID ORIGINAL EXAMINATION: Ultrasound Thyroid COMPARISON: CT neck 01/06/2025 and ultrasound 02/04/2020 TECHNIQUE: This report is based on interpretation of permanently recorded ultrasound images. HISTORY: ORDERING SYSTEM PROVIDED HISTORY: Reason for Exam: left thyroid nodules on CT, FINDINGS: Size right thyroid lobe: 3.1 x 1.2 x 0.9 cm Size left thyroid lobe: 4.7 x 1.8 x 1.6 cm Size isthmus: 0.3 cm Texture: Mildly heterogeneous background with scattered punctate echogenic foci in both lobes. No increase in vascularity. Estimated total number of nodules greater than or equal to 1 cm: 2 Nodule #: # 1: This is a nodule in the mid to lower left lobe also seen previously. The nodule is 2.9 x 1.7 x 1.9 cm smaller than previous measurements. The nodule is mixed cystic and solid isoechoic wider than tall with smooth margins and no suspicious echogenic foci. ACR Total Points: 2; ACR TI-RADS risk category: TR2 - nonsuspicious nodule. Nodule #: # 2: This is a nodule in the mid left lobe just superior to nodule 1. The nodule is 1.3 x 0.9 x 1.0 cm similar to the earlier study. The nodule is solid isoechoic wider than tall with smooth margins and some punctate echogenic foci. ACR Total Points: 6; ACR TI-RADS risk category: TR4 - moderately suspicious nodule. There are no other suspicious thyroid nodules. Other subcentimeter nodules bilaterally are not considered suspicious by ACR TIRADS criteria and require no follow-up imaging. IMPRESSION: Multinodular thyroid. 1. Nodule 1: Size 2.9 cm, ACR TI-RADS 2017 Risk category and Recommendation TR 2, the nodule is smaller than 2020 and requires no follow-up imaging.. 2. Nodule 2: Size 1.3 cm, ACR TI-RADS 2017 Risk category and Recommendation TR 4, the nodule is not significantly changed from 2020. 5 years of stability is consistent with a benign nodule, no follow-up is indicated.. ACR TI-RADS 2017 Recommendations: TR1(0 points) : No FNA or follow up TR2 (2 points) : No FNA or follow up TR3 (3 points) : FNA if >/= 2.5 cm, follow up if 1.5 - 2.4 cm in 1, 3, and 5 years TR4 (4-6 points) : FNA if >/= 1.5 cm, follow up if 1.0 - 1.4 cm in 1, 2, 3, and 5 years TR5 (>/= 7 points) : FNA if >/= 1.0 cm, follow up if 0.5 - 0.9 cm every year for 5 years *ACR TI-RADS recommends that no more than two nodules with the highest ACR TI-RADS total point should be biopsied and no more than four nodules should be followed. Interpreted by: Alvin Holguin MD Preliminary Report By: Alvin Holguin MD Electronically signed By Alvin Holguin MD Dictated Date: 01/18/2025 1:02:48 PM Prelim Date: 01/18/2025 1:11:36 PM Sign Date: 01/18/2025 1:11:36 PM Ordering Provider: MARCO Lopes [facility] CT SOFT TISSUE NECK W/ CONTR Alaina 01-11-2025 CT SOFT TISSUE NECK W/ CONTRAST ORIGINAL EXAMINATION: CT OF THE NECK SOFT TISSUE WITH CONTRAST 01/11/2025 TECHNIQUE: CT of the neck was performed with the administration of intravenous contrast. Multiplanar reformatted images are provided for review. Automated exposure control, iterative reconstruction, and/or weight based adjustment of the mA/kV was utilized to reduce the radiation dose to as low as reasonably achievable. COMPARISON: Thyroid sonogram 02/04/2020. HISTORY: ORDERING SYSTEM PROVIDED HISTORY: Reason for Exam: right lower anterior paratracheal neck mass FINDINGS: PHARYNX/LARYNX: The tonsillar pillars are normal in appearance. The tongue is normal in appearance. The valleculae, epiglottis, aryepiglottic folds and pyriform sinuses appear unremarkable. The true and false vocal cords are normal in appearance. No mass or abscess is seen. SALIVARY GLANDS/THYROID: The parotid and submandibular glands appear unremarkable. The left the thyroid gland is enlarged compared to the right. There are nodular densities in the left thyroid gland up to 1.3 cm.. LYMPH NODES: No cervical or supraclavicular lymphadenopathy is seen. SOFT TISSUES: No appreciable soft tissue swelling or mass is seen. BRAIN/ORBITS/SINUSES: The visualized portion of the intracranial contents appear unremarkable. The visualized portion of the orbits, paranasal sinuses and mastoid air cells demonstrate no acute abnormality. LUNG APICES/SUPERIOR MEDIASTINUM: No focal consolidation is seen within the visualized lung apices. No superior mediastinal lymphadenopathy or mass. The visualized portion of the trachea appears unremarkable. BONES: No aggressive appearing lytic or blastic bony lesion. IMPRESSION: 1. No acute finding. 2. Left thyroid nodules. Suggest correlation with sonography. Interpreted by: Tesfaye Rivera Preliminary Report By: Tesfaye Rivera Electronically signed By Tesfaye Rivera Dictated Date: 01/11/2025 10:46:22 AM Prelim Date: 01/11/2025 10:52:01 AM Sign Date: 01/11/2025 10:52:01 AM Ordering Provider: MARCO MENSAH [facility] C-reactive protein measureme nt by high sensitivity methodOrdered By: Kirk Avalos on 01-06-2025 C-Reactive Protein Extended Range 8.64 mg/L High 0.0-3.0 [facility] Comment on above: C-Reactive Protein ( CRP) provides useful information for thediagnosis, therapy and monitoring of inflammatory processesand associated diseases. For the evaluation of Relative Riskfor Cardiovascular Disease, a High Sensitivity CRP (HSCRP)should be ordered. C-reactive protein measurement by high sensitivity method 8.64 mg/L High 0.0-3.0 [facility] Comment on above: C-Reactive Protein ( CRP) provides useful information for thediagnosis, therapy and monitoring of inflammatory processesand associated diseases. For the evaluation of Relative Riskfor Cardiovascular Disease, a High Sensitivity CRP (HSCRP)should be ordered. CBC-Complete Blood Cnt No Di ffon 01-06-2025 Erythrocyte distribution width (RBC) [Ratio] 14.6 % Normal 11.6-14.6 [facility] Comment on above: Performed By: #### L 503.6150, L501.6710, L100.0500, L503.6550 #### [facility] [address] [place], [place], [id number] Hematocrit (Bld) [Volume fraction] 37.3 % Normal 37-47 [facility] Comment on above: Performed By: #### L 503.6150, L501.6710, L100.0500, L503.6550 #### [facility] [address] [place], [address] Hemoglobin (Bld) [Mass/Vol] 11.6 g/dL Low 12.0-15.0 [facility] Comment on above: Performed By: #### L 503.6150, L501.6710, L100.0500, L503.6550 #### [facility] [address] [place], [address] MCH (RBC) [Entitic mass] 28.4 pg Normal 27.0-32.0 [facility] Comment on above: Performed By: #### L 503.6150, L501.6710, L100.0500, L503.6550 #### [facility] [address] [place], [address] MCHC (RBC) [Mass/Vol] 31.1 g/dL Low 32-36 [facility] Comment on above: Performed By: #### L 503.6150, L501.6710, L100.0500, L503.6550 #### [facility] [address] [place], [address] MCV (RBC) [Entitic vol] 91.4 fL Normal 81-99 [facility] Comment on above: Performed By: #### L 503.6150, L501.6710, L100.0500, L503.6550 #### [facility] [address] [place], [address] Platelet mean volume (Bld) [Entitic vol] 10.8 fL Normal 6.2-12.0 [facility] Comment on above: Performed By: #### L 503.6150, L501.6710, L100.0500, L503.6550 #### [facility] [address] [place], [address] Platelets (Bld) [#/Vol] 277 10*3/uL Normal 150-450 [facility] Comment on above: Performed By: #### L 503.6150, L501.6710, L100.0500, L503.6550 #### [facility] [address] [place], [address] RBC (Bld) [#/Vol] 4.08 10*6/uL Low 4.2-5.[address] [facility] Comment on above: Performed By: #### L 503.6150, L501.6710, L100.0500, L503.6550 #### [facility] [address] [place], [address] RDW SD 48.7 fl High 35.1-43.9 [facility] Comment on above: Performed By: #### L 503.6150, L501.6710, L100.0500, L503.6550 #### [facility] [address] [place], [address] WBC (Bld) [#/Vol] 4.5 10*3/uL Normal 4.4-11.0 [facility] Comment on above: Performed By: #### L 503.6150, L501.6710, L100.0500, L503.6550 #### [facility] [address] [place], [address] CRPon 01-06-2025 C-REACTIVE PROT 8.64 mg/L High 0.0-3.0 [facility] Comment on above: Result Comment: C-Re active Protein (CRP) provides useful information for the diagnosis, therapy and monitoring of inflammatory processes and associated diseases. For the evaluation of Relative Risk for Cardiovascular Disease, a High Sensitivity CRP (HSCRP) should be ordered. Performed By: #### L 503.6150, L501.6710, L100.0500, L503.6550 #### [facility] [address] [place], [address] Erythrocyte distribution wid th ratioOrdered By: Kirk Avalos on 01-06-2025 Erythrocyte distribution width (RBC) [Ratio] 14.6 % 11.6-14.6 [facility] Erythrocyte distribution wid th standard deviationOrdered By: Kirk Avalos on 01-06-2025 Erythrocyte distribution width (RBC) [Entitic vol] 48.7 fL High 35.1-43.9 [facility] Erythrocyte distribution width (RBC) [Ratio] 48.7 fl High 35.1-43.9 [facility] Ferritinon 01-06-2025 Ferritin [Mass/Vol] 106 ng/mL Normal 8-[address] [facility] Comment on above: Performed By: #### L 503.6150, L501.6710, L100.0500, L503.6550 #### [facility] [address], [address] Ferritin measurementOrdered By: Kirk Avalos on 01-06-2025 Ferritin [Mass/Vol] 106 ng/mL 8-[address] [facility] Hematocrit Auto (Bld) [Volum e fraction]Ordered By: Kirk Avalos on 01-06-2025 Hematocrit (Bld) [Volume fraction] 37.3 % 37-47 [facility] Hemoglobin measurementOrdere d By: Kirk Avalos on 01-06-2025 Hemoglobin (Bld) [Mass/Vol] 11.6 g/dL Low 12.0-15.0 [facility] Ironon 01-06-2025 Iron [Mass/Vol] 40 ug/dL Low 50-170 [facility] Comment on above: Performed By: #### L 503.6150, L501.6710, L100.0500, L503.6550 #### [facility] [address] [place], [address] Iron (Unsp spec) [Mass/Mass] Ordered By: Kirk Avalos on 01-06-2025 Iron [Mass/Vol] 40 ug/dL Low 50-170 [facility] Iron measurement (mass/mass) Ordered By: Kirk Avalos on 01-06-2025 Iron (Unsp spec) [Mass/Mass] 40 ug/dL Low 50-170 [facility] MCV (mean corpuscular volume ) determinationOrdered By: Kirk Avalos on 01-06-2025 MCV (RBC) [Entitic vol] 91.4 fL 81-99 [facility] Mean corpuscular hemoglobin (MCH) determinationOrdered By: Kirk Avalos on 01-06-2025 MCH (RBC) [Entitic mass] 28.4 pg 27.0-32.0 [facility] Mean corpuscular hemoglobin concentration (MCHC) determinationOrdered By: Kirk Avalos on 01-06-2025 MCHC (RBC) [Mass/Vol] 31.1 g/dL Low 32-36 [facility] Mean platelet volume determi nationOrdered By: Kirk Avalos on 01-06-2025 Platelet mean volume (Bld) [Entitic vol] 10.8 fL 6.2-12.0 [facility] Platelet countOrdered By: Anita Avalos on 01-06-2025 Platelets (Bld) [#/Vol] 277 10*3/uL 150-450 [facility] RBC Auto (Bld) [#/Vol]Ordere d By: Kirk Avalos on 01-06-2025 RBC (Bld) [#/Vol] 4.08 10*6/uL Low 4.2-5.[address] [facility] White blood cell (WBC) count Ordered By: Kirk Avalos on 01-06-2025 WBC (Bld) [#/Vol] 4.5 10*3/uL 4.4-11.0 [facility] Quantiferon TB-Gold+on 12-25 QFT MITOGEN SUSSY > 10.00 Normal . [facility] Comment on above: Performed By: #### L 3890.6100, L500.4050, L100.0500, L501.6710, L3400.8000 ####[facility] [address] [place], [place], [address] QFT NIL VALUE 0 IU/mL Normal . [facility] Comment on above: Performed By: #### L 3890.6100, L500.4050, L100.0500, L501.6710, L3400.8000 ####[facility] [address] [place], [place], [address] QFT TB GOLD+ Comment Normal . [facility] Comment on above: Result Comment: Jayson tiFERON-TB Gold Plus is a qualitative indirect test for M tuberculosis infection (including disease) and is intended for use in conjunction with risk assessment, radiography, and other medical and diagnostic evaluations. The QuantiFERON-TB Gold Plus result is determined by subtracting the Nil value from either TB antigen (Ag) value. The Mitogen tube serves as a control for the test. Performed By: #### L 3890.6100, L500.4050, L100.0500, L501.6710, L3400.8000 ####[facility] [address] [facility] [place], [place], [id number] QFT TB POS CRIT Negative Normal Negative [facility] Comment on above: Result Comment: No r esponse to M tuberculosis antigens detected. Infection with M tuberculosis is unlikely, but high risk individuals should be considered for additional testing (ATS/IDSA/CDC Clinical Practice Guidelines, 2017). The reference range is an Antigen minus Nil result of <0.35 IU/mL. The specimen received for QuantiFERON testing was incubated by the ordering institution. Specific procedures outlined in our Directory of Services and in the package insert for the QuantiFERON Gold (In Tube) test must be followed to enable for proper stimulation of cells for the production of interferon gamma. Chemiluminescence immunoassay methodology Performed at: [facility] [employer] [id number] Broach Grinder: Kirk Saldaña PhD, Phone: [phone] Performed By: #### L 3890.6100, L500.4050, L100.0500, L501.6710, L3400.8000 ####[facility] [address] [facility] [place], [place], [id number] QFT TB1+ AG SUSSY 0.01 IU/mL Normal . [facility] Comment on above: Performed By: #### L 3890.6100, L500.4050, L100.0500, L501.6710, L3400.8000 ####[facility] [address] [place], [address] QFT TB2+ AG SUSSY 0 IU/mL Normal . [facility] Comment on above: Performed By: #### L 3890.6100, L500.4050, L100.0500, L501.6710, L3400.8000 ####[facility] [address] [place], [address] Albumin to globulin ratioOrd ered By: Kirk Avalos on 12-23-2024 Albumin/Globulin [Mass ratio] 0.7 {ratio} Low 0.9-2.4 [facility] Bilirubin, totalOrdered By: Kirk Avalos on 12-23-2024 Bilirubin [Mass/Vol] 0.40 mg/dL 0.20-1.00 [facility] Comment on above: For patients on eltr ombopag therapy, use of Dimension Mcclellan TBIL is not recommended. Blood urea nitrogen (BUN)/cr eatinine ratioOrdered By: Kirk Avalos on 12-23-2024 Urea nitrogen/Creatinine [Mass ratio] 25.2 mg/mg High 10-20 [facility] C-reactive protein measureme nt by high sensitivity methodOrdered By: Kirk Avalos on 12-23-2024 C-Reactive Protein Extended Range 14.70 mg/L High 0.0-3.0 [facility] Comment on above: C-Reactive Protein ( CRP) provides useful information for thediagnosis, therapy and monitoring of inflammatory processesand associated diseases. For the evaluation of Relative Riskfor Cardiovascular Disease, a High Sensitivity CRP (HSCRP)should be ordered. C-reactive protein measurement by high sensitivity method 14.70 mg/L High 0.0-3.0 [facility] Comment on above: C-Reactive Protein ( CRP) provides useful information for thediagnosis, therapy and monitoring of inflammatory processesand associated diseases. For the evaluation of Relative Riskfor Cardiovascular Disease, a High Sensitivity CRP (HSCRP)should be ordered. CBC-Complete Blood Cnt No Di ffon 12-23-2024 Erythrocyte distribution width (RBC) [Ratio] 14.6 % Normal 11.6-14.6 [facility] Comment on above: Performed By: #### L 3890.6100, L500.4050, L100.0500, L501.6710, L3400.8000 ####[facility] [address] [place], [address] Hematocrit (Bld) [Volume fraction] 36.4 % Low 37-47 [facility] Comment on above: Performed By: #### L 3890.6100, L500.4050, L100.0500, L501.6710, L3400.8000 ####[facility] [address] [place], [address] Hemoglobin (Bld) [Mass/Vol] 11.3 g/dL Low 12.0-15.0 [facility] Comment on above: Performed By: #### L 3890.6100, L500.4050, L100.0500, L501.6710, L3400.8000 ####[facility] [address] [place], [address] MCH (RBC) [Entitic mass] 28.0 pg Normal 27.0-32.0 [facility] Comment on above: Performed By: #### L 3890.6100, L500.4050, L100.0500, L501.6710, L3400.8000 ####[facility] [address] [place], [address] MCHC (RBC) [Mass/Vol] 31.0 g/dL Low 32-36 [facility] Comment on above: Performed By: #### L 3890.6100, L500.4050, L100.0500, L501.6710, L3400.8000 ####[facility] [address] [place], [address] MCV (RBC) [Entitic vol] 90.3 fL Normal 81-99 [facility] Comment on above: Performed By: #### L 3890.6100, L500.4050, L100.0500, L501.6710, L3400.8000 ####[facility] [address] [place], [address] Platelet mean volume (Bld) [Entitic vol] 10.3 fL Normal 6.2-12.0 [facility] Comment on above: Performed By: #### L 3890.6100, L500.4050, L100.0500, L501.6710, L3400.8000 ####[facility] [address] [place], [address] Platelets (Bld) [#/Vol] 266 10*3/uL Normal 150-450 [facility] Comment on above: Performed By: #### L 3890.6100, L500.4050, L100.0500, L501.6710, L3400.8000 ####[facility] [address] [place], [address] RBC (Bld) [#/Vol] 4.03 10*6/uL Low 4.2-5.[address] [facility] Comment on above: Performed By: #### L 3890.6100, L500.4050, L100.0500, L501.6710, L3400.8000 ####[facility] [address] [place], [address] RDW SD 48.6 fl High 35.1-43.9 [facility] Comment on above: Performed By: #### L 3890.6100, L500.4050, L100.0500, L501.6710, L3400.8000 ####[facility] [address] [place], [address] WBC (Bld) [#/Vol] 4.4 10*3/uL Normal 4.4-11.0 [facility] Comment on above: Performed By: #### L 3890.6100, L500.4050, L100.0500, L501.6710, L3400.8000 ####[facility] [address] [place], [address] CRPon 12-23-2024 C-REACTIVE PROT 14.70 mg/L High 0.0-3.0 [facility] Comment on above: Result Comment: C-Re active Protein (CRP) provides useful information for the diagnosis, therapy and monitoring of inflammatory processes and associated diseases. For the evaluation of Relative Risk for Cardiovascular Disease, a High Sensitivity CRP (HSCRP) should be ordered. Performed By: #### L 3890.6100, L500.4050, L100.0500, L501.6710, L3400.8000 ####[facility] [address] [place], [address] Carbon dioxide measurementOr dered By: Kirk Avalos on 12-23-2024 CO2 [Moles/Vol] 26.0 mmol/L 21.0-32.0 [facility] Chloride measurementOrdered By: Kirk Avalos on 12-23-2024 Chloride [Moles/Vol] 104 mmol/L 98-107 [facility] Comprehensive Metabolic Prof ilon 12-23-2024 Albumin [Mass/Vol] 3.0 g/dL Low 3.2-5.0 [facility] Comment on above: Performed By: #### L 3890.6100, L500.4050, L100.0500, L501.6710, L3400.8000 ####[facility] [address] [place], [address] Albumin/Globulin [Mass ratio] 0.7 {ratio} Low 0.9-2.4 [facility] Comment on above: Performed By: #### L 3890.6100, L500.4050, L100.0500, L501.6710, L3400.8000 ####[facility] [address] [place], [address] ALK P 63 U/L Normal 45-117 [facility] Comment on above: Performed By: #### L 3890.6100, L500.4050, L100.0500, L501.6710, L3400.8000 ####[facility] [address] [place], [address] ALT [Catalytic activity/Vol] 22 U/L Normal 13-56 [facility] Comment on above: Performed By: #### L 3890.6100, L500.4050, L100.0500, L501.6710, L3400.8000 ####[facility] [address] [place], [address] AST [Catalytic activity/Vol] 13 U/L Low 15-37 [facility] Comment on above: Performed By: #### L 3890.6100, L500.4050, L100.0500, L501.6710, L3400.8000 ####[facility] [address] [place], [address] Bilirubin [Mass/Vol] 0.40 mg/dL Normal 0.20-1.00 [facility] Comment on above: Result Comment: For patients on eltrombopag therapy, use of Dimension Mcclellan TBIL is not recommended. Performed By: #### L 3890.6100, L500.4050, L100.0500, L501.6710, L3400.8000 ####[facility] [address] [place], [address] BUN/CRE 25.2 RATIO High 10-20 [facility] Comment on above: Performed By: #### L 3890.6100, L500.4050, L100.0500, L501.6710, L3400.8000 ####[facility] [address] [place], [address] CA,Total 8.6 mg/dL Normal 8.5-10.1 [facility] Comment on above: Performed By: #### L 3890.6100, L500.4050, L100.0500, L501.6710, L3400.8000 ####[facility] [address] [place], [address] Chloride [Moles/Vol] 104 mmol/L Normal 98-107 [facility] Comment on above: Performed By: #### L 3890.6100, L500.4050, L100.0500, L501.6710, L3400.8000 ####[facility] [address] [place], [address] CO2 [Moles/Vol] 26.0 mmol/L Normal 21.0-32.0 [facility] Comment on above: Performed By: #### L 3890.6100, L500.4050, L100.0500, L501.6710, L3400.8000 ####[facility] [address] [facility] [address] Creatinine [Mass/Vol] 0.75 mg/dL Normal 0.55-1.02 [facility] Comment on above: Result Comment: The validity of the calculated GFR GFRAA in patients over 70 years has not been determined. Clinical correlation is essential. Performed By: #### L 3890.6100, L500.4050, L100.0500, L501.6710, L3400.8000 ####[facility] [address] [place], [address] EST GFR - AA 98 mL/min Normal >60 [facility] Comment on above: Result Comment: Afri can Jordanian GFR Calc Performed By: #### L 3890.6100, L500.4050, L100.0500, L501.6710, L3400.8000 ####[facility] [address] [place], [address] GAP 7 Normal 5-15 [facility] Comment on above: Performed By: #### L 3890.6100, L500.4050, L100.0500, L501.6710, L3400.8000 ####[facility] [address] [place], [address] GFR/1.73 sq M.predicted among non-blacks MDRD (S/P/Bld) [Vol rate/Area] 81 mL/min/{1.73_m2} Normal >60 [facility] Comment on above: Result Comment: Non- GFR Calc Performed By: #### L 3890.6100, L500.4050, L100.0500, L501.6710, L3400.8000 ####[facility] [address] [place], [address] Globulin (S) [Mass/Vol] 4.4 g/dL High 2.2-4.2 [facility] Comment on above: Performed By: #### L 3890.6100, L500.4050, L100.0500, L501.6710, L3400.8000 ####[facility] [address] [place], [address] Glucose [Mass/Vol] 173 mg/dL High 74-106 [facility] Comment on above: Result Comment: Fast ing Glucose result greater than or equal to 126 mg/dL suggests DIABETES MELLITUS per A.D.A. criteria. Performed By: #### L 3890.6100, L500.4050, L100.0500, L501.6710, L3400.8000 ####[facility] [address] [place], [address] Potassium [Moles/Vol] 3.7 mmol/L Normal 3.5-5.1 [facility] Comment on above: Performed By: #### L 3890.6100, L500.4050, L100.0500, L501.6710, L3400.8000 ####[facility] [address] [place], [address] Sodium [Moles/Vol] 137 mmol/L Normal 136-145 [facility] Comment on above: Performed By: #### L 3890.6100, L500.4050, L100.0500, L501.6710, L3400.8000 ####[facility] [address] [place], [address] T PROT 7.4 g/dL Normal 6.4-8.2 [facility] Comment on above: Performed By: #### L 3890.6100, L500.4050, L100.0500, L501.6710, L3400.8000 ####[facility] [address] [place], [address] Urea nitrogen [Mass/Vol] 19 mg/dL High 7-18 [facility] Comment on above: Performed By: #### L 3890.6100, L500.4050, L100.0500, L501.6710, L3400.8000 ####[facility] [id number] [place], [address] Erythrocyte distribution wid th ratioOrdered By: Kirk Avalos on 12-23-2024 Erythrocyte distribution width (RBC) [Ratio] 14.6 % 11.6-14.6 [facility] Erythrocyte distribution wid th standard deviationOrdered By: Kirk Avalos on 12-23-2024 Erythrocyte distribution width (RBC) [Entitic vol] 48.6 fL High 35.1-43.9 [facility] Erythrocyte distribution width (RBC) [Ratio] 48.6 fl High 35.1-43.9 [facility] Estimated glomerular filtrat ion rate (GFR) AmericanOrdered By: Kirk Avalos on 12-23-2024 Estimated GFR (MDRD) Amer 98 mL/min >60 [facility] Comment on above: GFR Calc Glomerular filtration rate ( GFR) estimationOrdered By: Kirk Avalos on 12-23-2024 Estimated GFR (MDRD) Non-Af Amer 81 mL/min >60 [facility] Comment on above: Non- GFR Calc GFR/1.73 sq M.predicted among non-blacks MDRD (S/P/Bld) [Vol rate/Area] 81 mL/min/{1.73_m2} >60 [facility] Comment on above: Non- GFR Calc Glucose measurementOrdered B y: Kirk Avalos on 12-23-2024 Glucose [Mass/Vol] 173 mg/dL High 74-106 [facility] Comment on above: Fasting Glucose resu lt greater than or equal to 126 mg/dL suggests DIABETES MELLITUS per A.D.A. criteria. Hematocrit Auto (Bld) [Volum e fraction]Ordered By: Kirk Avalos on 12-23-2024 Hematocrit (Bld) [Volume fraction] 36.4 % Low 37-47 [facility] Hemoglobin measurementOrdere d By: Kirk Avalos on 12-23-2024 Hemoglobin (Bld) [Mass/Vol] 11.3 g/dL Low 12.0-15.0 [facility] Hepatitis B Surface Antigeno n 12-23-2024 HEP B Surf Ag Non-Reactive Normal Nonreactive [facility] Comment on above: Performed By: #### L 3890.6100, L500.4050, L100.0500, L501.6710, L3400.8000 ####[facility] [id number] [place], [place], [id number] Hepatitis B surface antigen detectionOrdered By: Kirk Avalos on 12-23-2024 Hepatitis B Surface Antigen Non-Reactive Nonreactive [facility] Ironon 12-23-2024 Iron [Mass/Vol] 32 ug/dL Low 50-170 [facility] Comment on above: Order Comment: VROM ON 2ND ORDER Performed By: #### L 503.6150 #### [facility] Laboratory [address] [place], [place], [id number] Iron (Unsp spec) [Mass/Mass] Ordered By: Marco Mensah on 12-23-2024 Iron [Mass/Vol] 32 ug/dL Low 50-170 [facility] Iron measurement (mass/mass) Ordered By: Marco Mensah on 12-23-2024 Iron (Unsp spec) [Mass/Mass] 32 ug/dL Low 50-170 [facility] Laboratory - Chemistry and C hemistry - challengeOrdered By: Kirk Avalos on 12-23-2024 AST [Catalytic activity/Vol] 13 U/L Low 15-37 [facility] M. tuberculosis tuberculin s allie IFN-g Ql (Bld)Ordered By: Kirk Avalos on 12-23-2024 TB Test (QFT) Antigen 1 0.01 IU/mL . [facility] MCV (mean corpuscular volume ) determinationOrdered By: Kirk Avalos on 12-23-2024 MCV (RBC) [Entitic vol] 90.3 fL 81-99 [facility] Mean corpuscular hemoglobin (MCH) determinationOrdered By: Kirk Avalos on 12-23-2024 MCH (RBC) [Entitic mass] 28.0 pg 27.0-32.0 [facility] Mean corpuscular hemoglobin concentration (MCHC) determinationOrdered By: Kirk Avalos on 12-23-2024 MCHC (RBC) [Mass/Vol] 31.0 g/dL Low 32-36 [facility] Mean platelet volume determi nationOrdered By: Kirk Avalos on 12-23-2024 Platelet mean volume (Bld) [Entitic vol] 10.3 fL 6.2-12.0 [facility] Platelet countOrdered By: Anita Avalos on 12-23-2024 Platelets (Bld) [#/Vol] 266 10*3/uL 150-450 [facility] Potassium measurementOrdered By: Kirk Avalos on 12-23-2024 Potassium [Moles/Vol] 3.7 mmol/L 3.5-5.1 [facility] Qualitative QuantiFERON-TB g old in tube testOrdered By: Kirk Avalos on 12-23-2024 M. tuberculosis tuberculin stim IFN-g Ql (Bld) 0.01 IU/mL . [facility] Quantiferon-TB Gold Plus ian tOrdered By: Kirk Avalos on 12-23-2024 TB Test (QFT) Comment . [facility] Comment on above: QuantiFERON-TB Gold Plus is a qualitative indirect test forM tuberculosis infection (including disease) and isintended for use in conjunction with risk assessment,radiography, and other medical and diagnostic evaluations.The QuantiFERON-TB Gold Plus result is determined bysubtracting the Nil value from either TB antigen (Ag)value. The Mitogen tube serves as a control for the test. TB Test (QFT) Antigen 2 0 IU/mL . [facility] TB Test (QFT) Mitogen > 10.00 IU/mL . [facility] TB Test (QFT) Nil 0 IU/mL . [facility] TB Test (QFT) Positive Criteria Negative Negative [facility] Comment on above: No response to M tub erculosis antigens detected.Infection with M tuberculosis is unlikely, but high riskindividuals should be considered for additional testing(ATS/IDSA/CDC Clinical Practice Guidelines, 2017). Thereference range is an Antigen minus Nil result of <0.35IU/mL.The specimen received for QuantiFERON testing was incubatedby the ordering institution. Specific procedures outlinedin our Directory of Services and in the package insert forthe QuantiFERON Gold (In Tube) test must be followed toenable for proper stimulation of cells for the productionof interferon gamma. Chemiluminescence immunoassaymethodologyPerformed at: [place] [id number] Director: Kirk Saldaña PhD, Phone: [phone] RBC Auto (Bld) [#/Vol]Ordere d By: Kirk Avalos on 12-23-2024 RBC (Bld) [#/Vol] 4.03 10*6/uL Low 4.2-5.[address] [facility] Serum anion gap measurementO rdered By: Kirk Avalos on 12-23-2024 Anion gap [Moles/Vol] 7 mmol/L 5-15 [facility] Serum globulin measurementOr dered By: Kirk Avalos on 12-23-2024 Globulin (S) [Mass/Vol] 4.4 g/dL High 2.2-4.2 [facility] Serum or plasma alanine sheridan otransferase (ALT) measurementOrdered By: Kirk Avalos on 12-23-2024 ALT [Catalytic activity/Vol] 22 U/L 13-56 [facility] Serum or plasma albumin mima urement (mass/volume)Ordered By: Kirk Avalos on 12-23-2024 Albumin [Mass/Vol] 3.0 g/dL Low 3.2-5.0 [facility] Serum or plasma alkaline reema sphatase measurementOrdered By: Kirk Avalos on 12-23-2024 ALP [Catalytic activity/Vol] 63 U/L 45-117 [facility] Serum or plasma calcium mima urement (mass/volume)Ordered By: Kirk Avalos on 12-23-2024 Calcium [Mass/Vol] 8.6 mg/dL 8.5-10.1 [facility] Serum or plasma creatinine m easurement (mass/volume)Ordered By: Kirk Avalos on 12-23-2024 Creatinine [Mass/Vol] 0.75 mg/dL 0.55-1.02 [facility] Comment on above: The validity of the calculated GFR & GFRAA in patients over 70 years has not been determined. Clinical correlation is essential. Serum or plasma urea nitroge n measurement (mass/volume)Ordered By: Kirk Avalos on 12-23-2024 Urea nitrogen [Mass/Vol] 19 mg/dL High 7-18 [facility] Sodium levelOrdered By: Nika Avalos on 12-23-2024 Sodium [Moles/Vol] 137 mmol/L 136-145 [facility] Total proteinOrdered By: Jorge Alberto Avalos on 12-23-2024 Protein [Mass/Vol] 7.4 g/dL 6.4-8.2 [facility] White blood cell (WBC) count Ordered By: Kirk Avalos on 12-23-2024 WBC (Bld) [#/Vol] 4.4 10*3/uL 4.4-11.0 [facility] 34-MP-Sesddki DOrdered By: Doug Hartley on 11-04-2024 Vitamin D 25-Hydroxy 58.2 ng/mL [facility] Comment on above: Vitamin D 25(OH) Sta tus Range Deficiency <20 ng/mL (50nmol/L) Insufficiency 20 - 30 ng/mL (50 - 75 nmol/L) Sufficiency 30 - 100 ng/mL (75 - 250 nmol/L) Toxicity >100 ng/mL (>250 nmol/L) Albumin to globulin ratioOrd ered By: Lincoln Hartley on 11-04-2024 Albumin/Globulin [Mass ratio] 0.7 {ratio} Low 0.9-2.4 [facility] Bilirubin, totalOrdered By: Lincoln Hartley on 11-04-2024 Bilirubin [Mass/Vol] 0.40 mg/dL 0.20-1.00 [facility] Comment on above: For patients on eltr ombopag therapy, use of Dimension Mcclellan TBIL is not recommended. Blood urea nitrogen (BUN)/cr eatinine ratioOrdered By: Lincoln Hartley on 11-04-2024 Urea nitrogen/Creatinine [Mass ratio] 27.9 mg/mg High 10-20 [facility] Carbon dioxide measurementOr dered By: Lincoln Hartley on 11-04-2024 CO2 [Moles/Vol] 25.0 mmol/L 21.0-32.0 [facility] Chloride measurementOrdered By: Lincoln Hartley on 11-04-2024 Chloride [Moles/Vol] 106 mmol/L 98-107 [facility] Comprehensive Metabolic Prof ilon 11-04-2024 Albumin [Mass/Vol] 3.1 g/dL Low 3.2-5.0 [facility] Comment on above: Performed By: #### L 501.9520, L506.0400, L500.4050, L506.1000 #### [facility] [address] [place], [address] Albumin/Globulin [Mass ratio] 0.7 {ratio} Low 0.9-2.4 [facility] Comment on above: Performed By: #### L 501.9520, L506.0400, L500.4050, L506.1000 #### [facility] [address] [place], [address] ALK P 68 U/L Normal 45-117 [facility] Comment on above: Performed By: #### L 501.9520, L506.0400, L500.4050, L506.1000 #### [facility] [address] [place], [address] ALT [Catalytic activity/Vol] 26 U/L Normal 13-56 [facility] Comment on above: Performed By: #### L 501.9520, L506.0400, L500.4050, L506.1000 #### [facility] [address] [place], [address] AST [Catalytic activity/Vol] 20 U/L Normal 15-37 [facility] Comment on above: Performed By: #### L 501.9520, L506.0400, L500.4050, L506.1000 #### [facility] [address] [place], [address] Bilirubin [Mass/Vol] 0.40 mg/dL Normal 0.20-1.00 [facility] Comment on above: Result Comment: For patients on eltrombopag therapy, use of Dimension Mcclellan TBIL is not recommended. Performed By: #### L 501.9520, L506.0400, L500.4050, L506.1000 #### [facility] [address] [place], [address] BUN/CRE 27.9 RATIO High 10-20 [facility] Comment on above: Performed By: #### L 501.9520, L506.0400, L500.4050, L506.1000 #### [facility] [address] [place], [address] CA,Total 9.0 mg/dL Normal 8.5-10.1 [facility] Comment on above: Performed By: #### L 501.9520, L506.0400, L500.4050, L506.1000 #### [facility] [address] [place], [address] Chloride [Moles/Vol] 106 mmol/L Normal 98-107 [facility] Comment on above: Performed By: #### L 501.9520, L506.0400, L500.4050, L506.1000 #### [facility] [address] [place], [address] CO2 [Moles/Vol] 25.0 mmol/L Normal 21.0-32.0 [facility] Comment on above: Performed By: #### L 501.9520, L506.0400, L500.4050, L506.1000 #### [facility] [address] [place], [address] Creatinine [Mass/Vol] 0.68 mg/dL Normal 0.55-1.02 [facility] Comment on above: Result Comment: The validity of the calculated GFR GFRAA in patients over 70 years has not been determined. Clinical correlation is essential. Performed By: #### L 501.9520, L506.0400, L500.4050, L506.1000 #### [facility] [address] [place], [address] EST GFR - AA 109 mL/min Normal >60 [facility] Comment on above: Result Comment: Afri can Jordanian GFR Calc Performed By: #### L 501.9520, L506.0400, L500.4050, L506.1000 #### [facility] [address] [place], [address] GAP 9 Normal 5-15 [facility] Comment on above: Performed By: #### L 501.9520, L506.0400, L500.4050, L506.1000 #### [facility] [address] [place], [address] GFR/1.73 sq M.predicted among non-blacks MDRD (S/P/Bld) [Vol rate/Area] 90 mL/min/{1.73_m2} Normal >60 [facility] Comment on above: Result Comment: Non- GFR Calc Performed By: #### L 501.9520, L506.0400, L500.4050, L506.1000 #### [facility] [address] [place], [address] Globulin (S) [Mass/Vol] 4.7 g/dL High 2.2-4.2 [facility] Comment on above: Performed By: #### L 501.9520, L506.0400, L500.4050, L506.1000 #### [facility] [address] [place], [address] Glucose [Mass/Vol] 96 mg/dL Normal 74-106 [facility] Comment on above: Performed By: #### L 501.9520, L506.0400, L500.4050, L506.1000 #### [facility] [address] [place], [address] Potassium [Moles/Vol] 4.0 mmol/L Normal 3.5-5.1 [facility] Comment on above: Performed By: #### L 501.9520, L506.0400, L500.4050, L506.1000 #### [facility] [address] [place], [address] Sodium [Moles/Vol] 139 mmol/L Normal 136-145 [facility] Comment on above: Performed By: #### L 501.9520, L506.0400, L500.4050, L506.1000 #### [facility] [address] [place], [address] T PROT 7.8 g/dL Normal 6.4-8.2 [facility] Comment on above: Performed By: #### L 501.9520, L506.0400, L500.4050, L506.1000 #### [facility] [address] [place], [address] Urea nitrogen [Mass/Vol] 19 mg/dL High 7-18 [facility] Comment on above: Performed By: #### L 501.9520, L506.0400, L500.4050, L506.1000 #### [facility] [address] [place], [address] Direct serum free thyroxine (FT4) measurementOrdered By: Lincoln Hartley on 11-04-2024 Free T4 [Mass/Vol] 1.23 ng/dL 0.76-1.46 [facility] Estimated glomerular filtrat ion rate (GFR) AmericanOrdered By: Lincoln Hartley on 11-04-2024 Estimated GFR (MDRD) Amer 109 mL/min >60 [facility] Comment on above: GFR Calc Glomerular filtration rate ( GFR) estimationOrdered By: Lincoln Hartley on 11-04-2024 Estimated GFR (MDRD) Non-Af Amer 90 mL/min >60 [facility] Comment on above: Non- GFR Calc Glucose measurementOrdered B y: Lincoln Hartley on 11-04-2024 Glucose [Mass/Vol] 96 mg/dL 74-106 [facility] Laboratory - Chemistry and C hemistry - challengeOrdered By: Lincoln Hartley on 11-04-2024 AST [Catalytic activity/Vol] 20 U/L 15-37 [facility] Potassium measurementOrdered By: Lincoln Hartley on 11-04-2024 Potassium [Moles/Vol] 4.0 mmol/L 3.5-5.1 [facility] Serum anion gap measurementO rdered By: Lincoln Hartley on 11-04-2024 Anion gap [Moles/Vol] 9 mmol/L 5-15 [facility] Serum globulin measurementOr dered By: Lincoln Hartley on 11-04-2024 Globulin (S) [Mass/Vol] 4.7 g/dL High 2.2-4.2 [facility] Serum or plasma alanine sheridan otransferase (ALT) measurementOrdered By: Lincoln Hartley on 11-04-2024 ALT [Catalytic activity/Vol] 26 U/L 13-56 [facility] Serum or plasma albumin mima urement (mass/volume)Ordered By: Lincoln Hartley on 11-04-2024 Albumin [Mass/Vol] 3.1 g/dL Low 3.2-5.0 [facility] Serum or plasma alkaline reema sphatase measurementOrdered By: Lincoln Hartley on 11-04-2024 ALP [Catalytic activity/Vol] 68 U/L 45-117 [facility] Serum or plasma calcium mima urement (mass/volume)Ordered By: Lincoln Hartley on 11-04-2024 Calcium [Mass/Vol] 9.0 mg/dL 8.5-10.1 [facility] Serum or plasma creatinine m easurement (mass/volume)Ordered By: Lincoln Hartley on 11-04-2024 Creatinine [Mass/Vol] 0.68 mg/dL 0.55-1.02 [facility] Comment on above: The validity of the calculated GFR & GFRAA in patients over 70 years has not been determined. Clinical correlation is essential. Serum or plasma urea nitroge n measurement (mass/volume)Ordered By: Lincoln Hartley on 11-04-2024 Urea nitrogen [Mass/Vol] 19 mg/dL High 7-18 [facility] Sodium levelOrdered By: Lincoln Hartley on 11-04-2024 Sodium [Moles/Vol] 139 mmol/L 136-145 [facility] T4 Free Directon 11-04-2024 T4 FREE DIRECT 1.23 ng/dL Normal 0.76-1.46 [facility] Comment on above: Performed By: #### L 501.9520, L506.0400, L500.4050, L506.1000 ####[facility] [id number] [place], [address] TSH QnOrdered By: Lincoln Hartley on 11-04-2024 Thyroid Stimulating Hormone (TSH) 2.210 uIU/mL 0.358-3.740 [facility] Thyroid Stim Hormone (TSH)on 11-04-2024 TSH 2.210 uIU/mL Normal 0.358-3.740 [facility] Comment on above: Performed By: #### L 501.9520, L506.0400, L500.4050, L506.1000 #### [facility] [address] [place], [address] Total proteinOrdered By: Mega Hartley on 11-04-2024 Protein [Mass/Vol] 7.8 g/dL 6.4-8.2 [facility] Vitamin D,25 Hydroxyon 11-04 Vitamin D 25-OH 58.2 ng/mL Normal [facility] Comment on above: Result Comment: Nakia min D 25(OH) Status Range Deficiency <20 ng/mL (50nmol/L) Insufficiency 20 - 30 ng/mL (50 - 75 nmol/L) Sufficiency 30 - 100 ng/mL (75 - 250 nmol/L) Toxicity >100 ng/mL (>250 nmol/L) Performed By: #### L 501.9520, L506.0400, L500.4050, L506.1000 ####[facility] [id number] [place] [place], [address] BD BONE DENSITY DEXA AXIAL S [facility] 10-06-2024 BD BONE DENSITY DEXA AXIAL SKELETON ORIGINAL EXAMINATION: BONE LBPRLEESLIFL40/4/2024 2:10 pm TECHNIQUE: Dual energy bone densitometry lumbar spine and left hip. COMPARISON: December 18, 2019 HISTORY: Reason for Exam: Osteoporosis Screening FINDINGS: L1-L4: BMD= 0.818 g/cm2 T score= -2.1 Left femoral neck: BMD= 0.561 g/cm2 T score= -2.6 Left hip: BMD= 0.726 g/cm2 T score= -1.8 L1-L4 BMD change: +10.6%, significant. Left hip BMD change: -11.6%, significant. FRAX score: Not calculated. The BHOF f/k/a NOF recommends that FDA-approved medical therapies be considered in post-menopausal women and men age >/= 50 years with a: * Hip or vertebral fracture, or * T-score of /= 20% for major osteoporotic fractures or * >/= 3% for hip fractures All treatment decisions require clinical judgement and consideration of individual patient factors, including patient preferences, comorbidities, previous drug use, risk factors not captured in the FRAX registered model (e.g., frailty, falls, vitamin D deficiency, increased bone turnover, interval significant decline in bone density) and possible under- or over-estimation of fracture risk by FRAX. IMPRESSION: Osteoporosis. Interpreted by: Sammy Chawla MD Preliminary Report By: Sammy Chawla MD Electronically signed By Sammy Chawla MD Dictated Date: 10/06/2024 9:21:59 AM Prelim Date: 10/06/2024 9:23:44 AM Sign Date: 10/06/2024 9:23:44 AM Ordering Provider: MARCO MENSAH [facility] SOFT TISSUE MASS OF NECKo n 10-02-2024 US SOFT TISSUE MASS OF NECK ORIGINAL EXAMINATION: ULTRASOUND OF THE SOFT TISSUES OF THE HEAD AND NECK10/01/2024 9:43 am COMPARISON: None HISTORY: ORDERING SYSTEM PROVIDED HISTORY: Reason for Exam: right lower anterior paratracheal neck mass, All images are recorded and archived. FINDINGS: Directed ultrasound examination of right lower anterior neck performed. The reported palpable abnormality does not correspond 20 fluid collection, lymph node, or shadowing. There are normal vascular structures in the region. IMPRESSION: No sonographic abnormality in the right lower anterior neck. If there is persistent clinical concern, consider CT scan of the neck with IV contrast for further evaluation. Interpreted by: Silvestre Santamaria DO Preliminary Report By: Silvestre Santamaria DO Electronically signed By Silvestre Santamaria DO Dictated Date: 10/02/2024 2:23:30 PM Prelim Date: 10/02/2024 2:25:27 PM Sign Date: 10/02/2024 2:25:27 PM Ordering Provider: MARCO Lopes [facility] .Auto Diffon 09-30-2024 Basophil, Absolute 0.0 10 3/mcL Normal 0.0-0.2 [facility] Comment on above: Performed By: #### H CV1 #### [place] [address] #### ADIFF, LIPID, ANEU, GFR, CMP, CBC #### [address] [address] Basophils/100 WBC (Bld) 0.9 % Normal 0.0-2.5 [facility] Comment on above: Performed By: #### H CV1 #### [place] [address] #### ADIFF, LIPID, ANEU, GFR, CMP, CBC #### [address] [address] Eosinophil, Absolute 0.1 10 3/mcL Normal 0.0-0.7 [facility] Comment on above: Performed By: #### H CV1 #### [place] [address] #### ADIFF, LIPID, ANEU, GFR, CMP, CBC #### [address] [address] Eosinophils/100 WBC (Bld) 2.5 % Normal 0.0-7.0 [facility] Comment on above: Performed By: #### H CV1 #### [place] [address] #### ADIFF, LIPID, ANEU, GFR, CMP, CBC #### [address] [address] Lymphocyte, Absolute 1.1 10 3/mcL Normal 0.9-4.3 [facility] Comment on above: Performed By: #### H CV1 #### [place] [address] #### ADIFF, LIPID, ANEU, GFR, CMP, CBC #### [address] [address] Lymphocytes/100 WBC (Bld) 29.6 % Normal 20.0-40.0 [facility] Comment on above: Performed By: #### H CV1 #### [place] [address] #### ADIFF, LIPID, ANEU, GFR, CMP, CBC #### [address] [address] Monocyte, Absolute 0.5 10 3/mcL Normal 0.1-1.4 [facility] Comment on above: Performed By: #### H CV1 #### [place] [address] #### ADIFF, LIPID, ANEU, GFR, CMP, CBC #### [address] [address] Monocytes/100 WBC (Bld) 14.5 % High 2.0-13.0 [facility] Comment on above: Performed By: #### H CV1 #### [place] [address] #### ADIFF, LIPID, ANEU, GFR, CMP, CBC #### [address] [address] Neutrophils/100 WBC (Bld) 52.5 % Normal 50.0-75.0 [facility] Comment on above: Performed By: #### H CV1 #### [address] [address] #### ADIFF, LIPID, ANEU, GFR, CMP, CBC #### [place] [address] [place], [place] [address] .GFRon 09-30-2024 GFR Non- 65 ml/min/1.73sqm [facility] Comment on above: Result Comment: GFR Population mean for , Non- Americans Ages 20-29 = 116 mL/min/1.73 sq.m. Ages 30-39 = 107 mL/min/1.73 sq.m. Ages 40-49 = 99 mL/min/1.73 sq.m. Ages 50-59 = 93 mL/min/1.73 sq.m. Ages 60-69 = 85 mL/min/1.73 sq.m. Ages 70+ = 75 mL/min/1.73 sq.m. Chronic Kidney Disease: Less than 60 mL/min/1.73 square meters End Stage Renal Disease: Less than 15 mL/min/1.73 square meters Performed By: #### H CV1 #### [address] [address] #### ADIFF, LIPID, ANEU, GFR, CMP, CBC #### [place] [address] [place], [place] [address] GFR 79 ml/min/1.73sqm Normal [facility] Comment on above: Result Comment: GFR Population mean for , Non- Americans Ages 20-29 = 116 mL/min/1.73 sq.m. Ages 30-39 = 107 mL/min/1.73 sq.m. Ages 40-49 = 99 mL/min/1.73 sq.m. Ages 50-59 = 93 mL/min/1.73 sq.m. Ages 60-69 = 85 mL/min/1.73 sq.m. Ages 70+ = 75 mL/min/1.73 sq.m. Chronic Kidney Disease: Less than 60 mL/min/1.73 square meters End Stage Renal Disease: Less than 15 mL/min/1.73 square meters Performed By: #### H CV1 #### [place] [address] #### ADIFF, LIPID, ANEU, GFR, CMP, CBC #### [address] [address] .NEUABSon 09-30-2024 Neutrophil, Absolute 2.0 10 3/mcL Low 2.3-8.1 [facility] Comment on above: Performed By: #### H CV1 #### [place] [address] #### ADIFF, LIPID, ANEU, GFR, CMP, CBC #### [address] [address] CBCon 09-30-2024 Erythrocyte distribution width (RBC) [Ratio] 15.7 % High 11.5-15.5 [facility] Comment on above: Performed By: #### H CV1 #### [place] [address] #### ADIFF, LIPID, ANEU, GFR, CMP, CBC #### [address] [address] Hematocrit (Bld) [Volume fraction] 38.8 % Normal 34.0-46.0 [facility] Comment on above: Performed By: #### H CV1 #### [place] [address] #### ADIFF, LIPID, ANEU, GFR, CMP, CBC #### [address] [address] Hgb 12.7 G/dL Normal 12.0-16.0 [facility] Comment on above: Performed By: #### H CV1 #### [place] [address] #### ADIFF, LIPID, ANEU, GFR, CMP, CBC #### [address] [address] MCH (RBC) [Entitic mass] 29.6 pg Normal 27.0-33.0 [facility] Comment on above: Performed By: #### H CV1 #### [place] [address] #### ADIFF, LIPID, ANEU, GFR, CMP, CBC #### [address] [address] MCHC 32.7 G/dL Normal 32.0-36.0 [facility] Comment on above: Performed By: #### H CV1 #### [place] [address] #### ADIFF, LIPID, ANEU, GFR, CMP, CBC #### [address] [address] MCV (RBC) [Entitic vol] 90.6 fL Normal 80.0-99.0 [facility] Comment on above: Performed By: #### H CV1 #### [place] [address] #### ADIFF, LIPID, ANEU, GFR, CMP, CBC #### [address] [address] Platelet 241 10 3/mcL Normal 150-450 [facility] Comment on above: Performed By: #### H CV1 #### [place] [address] #### ADIFF, LIPID, ANEU, GFR, CMP, CBC #### [address] [address] Platelet mean volume (Bld) [Entitic vol] 8.8 fL Normal 6.6-10.5 [facility] Comment on above: Performed By: #### H CV1 #### [place] [address] #### ADIFF, LIPID, ANEU, GFR, CMP, CBC #### [address] [address] RBC 4.28 10 6/mcL Normal 4.10-5.30 [facility] Comment on above: Performed By: #### H CV1 #### [place] [address] #### ADIFF, LIPID, ANEU, GFR, CMP, CBC #### [address] [address] WBC 3.8 10 3/mcL Low 4.5-10.8 [facility] Comment on above: Performed By: #### H CV1 #### [place] [address] #### ADIFF, LIPID, ANEU, GFR, CMP, CBC #### [address] [address] CMPon 09-30-2024 Albumin Level 3.5 G/dL Normal 3.4-4.8 [facility] Comment on above: Performed By: #### H CV1 #### [place] [address] #### ADIFF, LIPID, ANEU, GFR, CMP, CBC #### [address] [address] Albumin/Globulin [Mass ratio] 0.9 {ratio} Low 1.1-2.5 [facility] Comment on above: Performed By: #### H CV1 #### [place] [address] #### ADIFF, LIPID, ANEU, GFR, CMP, CBC #### [address] [address] ALP [Catalytic activity/Vol] 77 U/L Normal 40-135 [facility] Comment on above: Performed By: #### H CV1 #### [place] [address] #### ADIFF, LIPID, ANEU, GFR, CMP, CBC #### [address] [address] ALT [Catalytic activity/Vol] 24 U/L Normal 14-59 [facility] Comment on above: Performed By: #### H CV1 #### [place] [address] #### ADIFF, LIPID, ANEU, GFR, CMP, CBC #### [address] [address] AST [Catalytic activity/Vol] 17 U/L Normal 10-40 [facility] Comment on above: Performed By: #### H CV1 #### [place] [address] #### ADIFF, LIPID, ANEU, GFR, CMP, CBC #### [address] [address] Bili Total 0.7 mg/dL Normal 0.2-1.0 [facility] Comment on above: Result Comment: Use of this assay is not recommended for patients undergoing treatment with eltrombopag due to the potential for falsely elevated results. Performed By: #### H CV1 #### [place] [address] #### ADIFF, LIPID, ANEU, GFR, CMP, CBC #### [address] [address] BUN/Creatinine Ratio 15 ratio Normal 7-27 [facility] Comment on above: Performed By: #### H CV1 #### [place] [address] #### ADIFF, LIPID, ANEU, GFR, CMP, CBC #### [address] [address] Calcium [Mass/Vol] 9.4 mg/dL Normal 8.4-10.2 [facility] Comment on above: Performed By: #### H CV1 #### [place] [address] #### ADIFF, LIPID, ANEU, GFR, CMP, CBC #### [address] [address] Chloride [Moles/Vol] 101 mmol/L Normal 98-107 [facility] Comment on above: Performed By: #### H CV1 #### [place] [address] #### ADIFF, LIPID, ANEU, GFR, CMP, CBC #### [address] [address] CO2 [Moles/Vol] 31 mmol/L Normal 23-31 [facility] Comment on above: Performed By: #### H CV1 #### [place] [address] #### ADIFF, LIPID, ANEU, GFR, CMP, CBC #### [address] [address] Creatinine [Mass/Vol] 0.86 mg/dL Normal 0.55-1.02 [facility] Comment on above: Result Comment: Test ing performed on Siemens Dimension EXL analyzer using a modified kinetic Milagros technique. Performed By: #### H CV1 #### [place] [address] #### ADIFF, LIPID, ANEU, GFR, CMP, CBC #### [address] [address] Electrolyte Balance 9.0 mEq/L Normal 4.0-15.0 [facility] Comment on above: Performed By: #### H CV1 #### [place] [address] #### ADIFF, LIPID, ANEU, GFR, CMP, CBC #### [address] [address] Globulin 4.1 G/dL Normal [facility] Comment on above: Performed By: #### H CV1 #### [place] [address] #### ADIFF, LIPID, ANEU, GFR, CMP, CBC #### [address] [address] Glucose [Mass/Vol] 91 mg/dL Normal 83-110 [facility] Comment on above: Performed By: #### H CV1 #### [place] [address] #### ADIFF, LIPID, ANEU, GFR, CMP, CBC #### [address] [address] Potassium [Moles/Vol] 4.4 mmol/L Normal 3.5-5.1 [facility] Comment on above: Performed By: #### H CV1 #### [place] [address] #### ADIFF, LIPID, ANEU, GFR, CMP, CBC #### [address] [address] Sodium [Moles/Vol] 141 mmol/L Normal 136-145 [facility] Comment on above: Performed By: #### H CV1 #### [place] [address] #### ADIFF, LIPID, ANEU, GFR, CMP, CBC #### [address] [address] Total Protein 7.6 G/dL Normal 6.4-8.2 [facility] Comment on above: Performed By: #### H CV1 #### [place] [address] #### ADIFF, LIPID, ANEU, GFR, CMP, CBC #### [address] [address] Urea nitrogen [Mass/Vol] 13 mg/dL Normal 7-18 [facility] Comment on above: Performed By: #### H CV1 #### [place] [address] #### ADIFF, LIPID, ANEU, GFR, CMP, CBC #### [address] [address] HCVon 09-30-2024 Hep C Ab Non-Reactive Normal Non-Reactive [facility] Comment on above: Performed By: #### H CV1 #### [place] [address] #### ADIFF, LIPID, ANEU, GFR, CMP, CBC #### [address] [address] Hep C Ab Int Normal [facility] Comment on above: Result Comment: Nonr eactive: Samples with a value < 0.80 are considered nonreactive (negative) for antibodies to HCV. A negative test result does not exclude the possibility of exposure to or infection with HCV. HCV antibodies may be undetectable in some stages of the infection and in some clinical conditions. See Interp Performed By: #### H CV1 #### [address] [address] #### ADIFF, LIPID, ANEU, GFR, CMP, CBC #### [place] [address] [place], [place] [address] LABORATORYOrdered By: SYSTEM SYSTEM on 09-30-2024 Albumin BCP dye [Mass/Vol] 3.5 G/dL Normal 3.4 - 4.8 G/dL AO ADM SS Albumin/Globulin [Mass ratio] 0.9 {ratio} Low 1.1 - 2.5 ratio AO ADM SS ALP [Catalytic activity/Vol] 77 U/L Normal 40 - 135 U/L AO ADM SS ALT With P-5'-P [Catalytic activity/Vol] 24 U/L Normal 14 - 59 U/L AO ADM SS AST With P-5'-P [Catalytic activity/Vol] 17 U/L Normal 10 - 40 U/L AO ADM SS Basophils (Bld) [#/Vol] 0.0 103/mcL Normal 0.0 - 0.2 10^3/mcL AO Workflow SS Basophils/100 WBC (Bld) 0.9 % Normal 0.0 - 2.5 % AO Workflow SS Bilirubin [Mass/Vol] 0.7 mg/dL Normal 0.2 - 1 .0 mg/dL AO ADM SS Comment on above: Interpretive Data: U se of this assay is not recommended for patients undergoing treatment with eltrombopag due to the potential for falsely elevated results. Calcium [Mass/Vol] 9.4 mg/dL Normal 8.4 - 10. 2 mg/dL AO ADM SS Chloride [Moles/Vol] 101 mmol/L Normal 98 - 10 7 mmol/L AO ADM SS CO2 [Moles/Vol] 31 mmol/L Normal 23 - 31 mmol/L AO ADM SS Creatinine [Mass/Vol] 0.86 mg/dL Normal 0.55 - 1.02 mg/dL AO ADM SS Comment on above: Interpretive Data: T esting performed on Siemens Dimension EXL analyzer using a modified kinetic Milagros technique. Electrolyte Balance 9.0 mEq/L Normal 4.0 - 15 .0 mEq/L AO ADM SS Eosinophil, Absolute 0.1 103/mcL Normal 0.0 - 0 .7 10^3/mcL AO Workflow SS Eosinophils/100 WBC (Bld) 2.5 % Normal 0.0 - 7.0 % AO Workflow SS Erythrocyte distribution width (RBC) [Ratio] 15.7 % High 11.5 - 15.5 % AO Workflow SS GFR/1.73 sq M.predicted among blacks MDRD (S/P/Bld) [Vol rate/Area] 79 ml/min/1.73sqm Invalid Interpretation Code AO Chemistry S Comment on above: Interpretive Data: GFR Population mean for , Non- Americans Ages 20-29 = 116 mL/min/1.73 sq.m. Ages 30-39 = 107 mL/min/1.73 sq.m. Ages 40-49 = 99 mL/min/1.73 sq.m. Ages 50-59 = 93 mL/min/1.73 sq.m. Ages 60-69 = 85 mL/min/1.73 sq.m. Ages 70+ = 75 mL/min/1.73 sq.m. Chronic Kidney Disease: Less than 60 mL/min/1.73 square meters End Stage Renal Disease: Less than 15 mL/min/1.73 square meters GFR/1.73 sq M.predicted among non-blacks MDRD (S/P/Bld) [Vol rate/Area] 65 ml/min/1.73sqm Invalid Interpretation Code AO Chemistry S Comment on above: Interpretive Data: GFR Population mean for , Non- Americans Ages 20-29 = 116 mL/min/1.73 sq.m. Ages 30-39 = 107 mL/min/1.73 sq.m. Ages 40-49 = 99 mL/min/1.73 sq.m. Ages 50-59 = 93 mL/min/1.73 sq.m. Ages 60-69 = 85 mL/min/1.73 sq.m. Ages 70+ = 75 mL/min/1.73 sq.m. Chronic Kidney Disease: Less than 60 mL/min/1.73 square meters End Stage Renal Disease: Less than 15 mL/min/1.73 square meters Globulin 4.1 G/dL Invalid Interpretation Code AO ADM SS Glucose [Mass/Vol] 91 mg/dL Normal 83 - 110 mg/dL AO ADM SS Hematocrit (Bld) [Volume fraction] 38.8 % Normal 34.0 - 46.0 % AO Workflow SS Hemoglobin (Bld) [Mass/Vol] 12.7 G/dL Normal 12.0 - 16.0 G/dL AO Workflow SS Lymphocytes (Bld) [#/Vol] 1.1 103/mcL Normal 0.9 - 4.3 10^3/mcL AO Workflow SS Lymphocytes/100 WBC (Bld) 29.6 % Normal 20.0 - 40.0 % AO Workflow SS MCH (RBC) [Entitic mass] 29.6 pg Normal 27.0 - 33.0 pg AO Workflow SS MCHC 32.7 G/dL Normal 32.0 - 36.0 G/dL AO Workflow SS MCV (RBC) [Entitic vol] 90.6 fL Normal 80.0 - 99.0 fL AO Workflow SS Monocytes (Bld) [#/Vol] 0.5 103/mcL Normal 0.1 - 1.4 10^3/mcL AO Workflow SS Monocytes/100 WBC (Bld) 14.5 % High 2.0 - 13.0 % AO Workflow SS Neutrophils (Bld) [#/Vol] 2.0 103/mcL Low 2.3 - 8.1 10^3/mcL AO Workflow SS Neutrophils/100 WBC (Bld) 52.5 % Normal 50.0 - 75.0 % AO Workflow SS Platelet mean volume (Bld) [Entitic vol] 8.8 fL Normal 6.6 - 10.5 fL AO Workflow SS Platelets (Bld) [#/Vol] 241 103/mcL Normal 150 - 450 10^3/mcL AO Workflow SS Potassium [Moles/Vol] 4.4 mmol/L Normal 3.5 - 5.1 mmol/L AO ADM SS Protein [Mass/Vol] 7.6 G/dL Normal 6.4 - 8.2 G/dL AO ADM SS RBC (Bld) [#/Vol] 4.28 106/mcL Normal 4.10 - 5.3 0 10^6/mcL AO Workflow SS Sodium [Moles/Vol] 141 mmol/L Normal 136 - 145 mmol/L AO ADM SS Urea nitrogen [Mass/Vol] 13 mg/dL Normal 7 - 18 mg/dL AO ADM SS Urea nitrogen/Creatinine [Mass ratio] 15 ratio Normal 7 - 27 ratio AO ADM SS WBC (Bld) [#/Vol] 3.8 103/mcL Low 4.5 - 10.8 10^3/mcL AO Workflow SS LABORATORYOrdered By: Sarai Bazan on 09-30-2024 Cholesterol [Mass/Vol] 244 mg/dL High 0 - 200 mg/dL AO ADM SS Comment on above: Interpretive Data: C holesterol Reference Interval: Less than 200 Desirable 200-239 Borderline high risk 240 and above High risk Cholesterol in HDL [Mass/Vol] 101 mg/dL High 40 - 60 mg/dL AO ADM SS Cholesterol in LDL [Mass/Vol] 130 mg/dL Normal 0 - 130 mg/dL AO ADM SS Triglyceride [Mass/Vol] 66 mg/dL Normal 0 - 150 mg/dL AO ADM SS Comment on above: Interpretive Data: T riglyceride Reference Interval: Less than 150 Normal 150-199 Borderline high risk 200-499 High risk 500 or higher Very high risk LABORATORYOrdered By: Davy Banerjee on 09-30-2024 HCV Ab IA Ql Non-Reactive (09/30/24 9:07 AM) Normal Non-Reactive AH ADM SS HCV Ab IA Ql Nonreactive: Samples with a value < 0.80 are considered nonreactive (negative) for antibodies to HCV.A negative test result does not exclude the possibility of exposure to or infection with HCV. HCV antibodies may be undetectable in some stages of the infection and in some clinical conditions. Invalid Interpretation Code Chemistry S LIPIDon 09-30-2024 Cholesterol [Mass/Vol] 244 mg/dL High 0-200 [facility] Comment on above: Result Comment: Chol esterol Reference Interval: Less than 200 Desirable 200-239 Borderline high risk 240 and above High risk Performed By: #### H CV1 #### [address] [address] #### ADIFF, LIPID, ANEU, GFR, CMP, CBC #### [address] [place], [place] [address] Cholesterol in HDL [Mass/Vol] 101 mg/dL High 40-60 [facility] Comment on above: Performed By: #### H CV1 #### [address] [address] #### ADIFF, LIPID, ANEU, GFR, CMP, CBC #### [address] [address] Cholesterol in LDL [Mass/Vol] 130 mg/dL Normal 0-130 [facility] Comment on above: Performed By: #### H CV1 #### [address] [address] #### ADIFF, LIPID, ANEU, GFR, CMP, CBC #### [address] [address] Triglyceride [Mass/Vol] 66 mg/dL Normal 0-150 [facility] Comment on above: Result Comment: Trig lyceride Reference Interval: Less than 150 Normal 150-199 Borderline high risk 200-499 High risk 500 or higher Very high risk Performed By: #### H CV1 #### [address] [address] #### ADIFF, LIPID, ANEU, GFR, CMP, CBC #### [address] [address] .Auto Diffon 11-04-2023 Basophil, Absolute 0.0 10 3/mcL Normal 0.0-0.2 [facility] ([place]) Comment on above: Performed By: #### A DIFF, FERR, CBC, CRP, FE, ANEU ####[address] [address] Basophils/100 WBC (Bld) 0.7 % Normal 0.0-2.5 [facility] ([place]) Comment on above: Performed By: #### A DIFF, FERR, CBC, CRP, FE, ANEU ####[address] [address] Eosinophil, Absolute 0.2 10 3/mcL Normal 0.0-0.4 [facility] ([place]) Comment on above: Performed By: #### A DIFF, FERR, CBC, CRP, FE, ANEU ####[address] [address] Eosinophils/100 WBC (Bld) 5.4 % Normal 0.0-7.0 [facility] ([place]) Comment on above: Performed By: #### A DIFF, FERR, CBC, CRP, FE, ANEU ####[address] [place], [place] [address] Lymphocyte, Absolute 1.1 10 3/mcL Normal 0.8-3.9 [facility] ([place]) Comment on above: Performed By: #### A DIFF, FERR, CBC, CRP, FE, ANEU ####[address] [address] Lymphocytes/100 WBC (Bld) 26.9 % Normal 10.0-50.0 [facility] ([place]) Comment on above: Performed By: #### A DIFF, FERR, CBC, CRP, FE, ANEU ####[address] [address] Monocyte, Absolute 0.6 10 3/mcL Normal 0.2-1.0 [facility] ([place]) Comment on above: Performed By: #### A DIFF, FERR, CBC, CRP, FE, ANEU ####[address] [address] Monocytes/100 WBC (Bld) 15.0 % High 1.7-13.0 [facility] ([place]) Comment on above: Performed By: #### A DIFF, FERR, CBC, CRP, FE, ANEU ####[address] [address] Neutrophils/100 WBC (Bld) 52.0 % Normal 37.0-80.0 [facility] ([place]) Comment on above: Performed By: #### A DIFF, FERR, CBC, CRP, FE, ANEU ####[address] [place] [address] .NEUABSon 11-04-2023 Neutrophil, Absolute 2.1 10 3/mcL Low 2.9-6.2 [facility] ([place]) Comment on above: Performed By: #### A DIFF, FERR, CBC, CRP, FE, ANEU ####[address] [place], [place] [address] CBCon 11-04-2023 Erythrocyte distribution width (RBC) [Ratio] 15.3 % High 11.5-14.5 [facility] ([place]) Comment on above: Performed By: #### A DIFF, FERR, CBC, CRP, FE, ANEU ####[address] [place], [place] [address] Hematocrit (Bld) [Volume fraction] 34.9 % Low 37.0-47.0 [facility] ([place]) Comment on above: Performed By: #### A DIFF, FERR, CBC, CRP, FE, ANEU ####[address] [place], [place] [address] Hgb 11.3 G/dL Low 12.0-16.0 [facility] ([place]) Comment on above: Performed By: #### A DIFF, FERR, CBC, CRP, FE, ANEU ####[address] [place], [place] [address] MCH (RBC) [Entitic mass] 27.5 pg Normal 27.0-31.2 [facility] ([place]) Comment on above: Performed By: #### A DIFF, FERR, CBC, CRP, FE, ANEU ####[address] [address] MCHC 32.3 G/dL Low 33.0-37.0 [facility] ([place]) Comment on above: Performed By: #### A DIFF, FERR, CBC, CRP, FE, ANEU ####[address] [place], [place] [address] MCV (RBC) [Entitic vol] 85.1 fL Normal 80.0-94.0 [facility] ([place]) Comment on above: Performed By: #### A DIFF, FERR, CBC, CRP, FE, ANEU ####[address] [place] [address] Platelet 281 10 3/mcL Normal 130-400 [facility] ([place]) Comment on above: Performed By: #### A DIFF, FERR, CBC, CRP, FE, ANEU ####[address] [place], [place] [address] Platelet mean volume (Bld) [Entitic vol] 8.4 fL Normal 7.4-10.4 [facility] ([place]) Comment on above: Performed By: #### A DIFF, FERR, CBC, CRP, FE, ANEU ####[address] [place], [place] [address] RBC 4.10 10 6/mcL Low 4.20-5.40 [facility] ([place]) Comment on above: Performed By: #### A DIFF, FERR, CBC, CRP, FE, ANEU ####[address] [place], [place] [address] WBC 4.0 10 3/mcL Low 4.6-10.8 [facility] ([place]) Comment on above: Performed By: #### A DIFF, FERR, CBC, CRP, FE, ANEU ####[address] [place], [place] [address] CRPon 11-04-2023 C-Reactive Protein 2.4 mg/dL High 0.0-0.3 [facility] ([place]) Comment on above: Performed By: #### A DIFF, FERR, CBC, CRP, FE, ANEU ####[address] [place], [place] [address] FEon 11-04-2023 Iron [Mass/Vol] 22 ug/dL Low 50-170 [facility] ([place]) Comment on above: Performed By: #### A DIFF, FERR, CBC, CRP, FE, ANEU ####[address] [place], [place] [address] Rosario 11-04-2023 Ferritin [Mass/Vol] 67.0 ng/mL Normal 8.0-252.0 [facility] ([place]) Comment on above: Performed By: #### A DIFF, FERR, CBC, CRP, FE, ANEU ####[address] [place], [place] [address] LABORATORYOrdered By: SYSTEM SYSTEM on 11-04-2023 Basophil, Absolute 0.0 103/mcL Normal 0.0 - 0.2 10^3/mcL AO Workflow SS Basophils/100 WBC (Bld) 0.7 % Normal 0.0 - 2.5 % AO Workflow SS CRP [Mass/Vol] 2.4 mg/dL High 0.0 - 0.3 mg/dL AO ADM SS Eosinophil, Absolute 0.2 103/mcL Normal 0.0 - 0 .4 10^3/mcL AO Workflow SS Eosinophils/100 WBC (Bld) 5.4 % Normal 0.0 - 7.0 % AO Workflow SS Erythrocyte distribution width (RBC) [Ratio] 15.3 % High 11.5 - 14.5 % AO Workflow SS Ferritin [Mass/Vol] 67.0 ng/mL Normal 8.0 - 25 2.0 ng/mL AO ADM SS Hematocrit (Bld) [Volume fraction] 34.9 % Low 37.0 - 47.0 % AO Workflow SS Hemoglobin (Bld) [Mass/Vol] 11.3 G/dL Low 12.0 - 16.0 G/dL AO Workflow SS Iron [Mass/Vol] 22 ug/dL Low 50 - 170 mcg/dL AO ADM SS Lymphocyte, Absolute 1.1 103/mcL Normal 0.8 - 3 .9 10^3/mcL AO Workflow SS Lymphocytes/100 WBC (Bld) 26.9 % Normal 10.0 - 50.0 % AO Workflow SS MCH (RBC) [Entitic mass] 27.5 pg Normal 27.0 - 31.2 pg AO Workflow SS MCHC 32.3 G/dL Low 33.0 - 37.0 G/dL AO Workflow SS MCV (RBC) [Entitic vol] 85.1 fL Normal 80.0 - 94.0 fL AO Workflow SS Monocyte, Absolute 0.6 103/mcL Normal 0.2 - 1.0 10^3/mcL AO Workflow SS Monocytes/100 WBC (Bld) 15.0 % High 1.7 - 13.0 % AO Workflow SS Neutrophil, Absolute 2.1 103/mcL Low 2.9 - 6 .2 10^3/mcL AO Workflow SS Neutrophils/100 WBC (Bld) 52.0 % Normal 37.0 - 80.0 % AO Workflow SS Platelet mean volume (Bld) [Entitic vol] 8.4 fL Normal 7.4 - 10.4 fL AO Workflow SS Platelets (Bld) [#/Vol] 281 103/mcL Normal 130 - 400 10^3/mcL AO Workflow SS RBC (Bld) [#/Vol] 4.10 106/mcL Low 4.20 - 5.4 0 10^6/mcL AO Workflow SS WBC (Bld) [#/Vol] 4.0 103/mcL Low 4.6 - 10.8 10^3/mcL AO Workflow SS Basophil percentageOrdered B y: Lincoln Hartley on 08-30-2023 Bilirubin [Mass/Vol] 0.40 mg/dL 0.20-1.00 [facility] Comment on above: For patients on eltr ombopag therapy, use of Dimension Mcclellan TBIL is not recommended. Chloride [Moles/Vol] 107 mmol/L 98-107 [facility] Glucose [Mass/Vol] 84 mg/dL 74-106 [facility] Potassium [Moles/Vol] 4.2 mmol/L 3.5-5.1 [facility] Protein [Mass/Vol] 6.5 g/dL 6.4-8.2 [facility] Sodium [Moles/Vol] 137 mmol/L 136-145 [facility] Laboratory - Chemistry and C hemistry - challengeOrdered By: Lincoln Hartley on 08-30-2023 ALP [Catalytic activity/Vol] 58 U/L 45-117 [facility] ALT [Catalytic activity/Vol] 27 U/L 13-56 [facility] CO2 [Moles/Vol] 28.0 mmol/L 21.0-32.0 [facility] Free T4 [Mass/Vol] 1.17 ng/dL 0.76-1.46 [facility] Globulin (S) [Mass/Vol] 3.7 g/dL 2.2-4.2 [facility] Urea nitrogen/Creatinine [Mass ratio] 26.2 mg/mg 10-20 [facility] No Panel InformationOrdered By: Lincoln Hartley on 08-30-2023 Estimated Creatinine Clearance Calc 38.14 ml/min [facility] Estimated GFR (MDRD) Amer 102 mL/min >60 [facility] Comment on above: GFR Calc Estimated GFR (MDRD) Non-Af Amer 85 mL/min >60 [facility] Comment on above: Non- GFR Calc Thyroid Stimulating Hormone (TSH) 2.76 uIU/mL 0.358-3.74 [facility] Vitamin D 25-Hydroxy 49.1 ng/mL [facility] Comment on above: Vitamin D 25(OH) Sta tus Range Deficiency <20 ng/mL (50nmol/L) Insufficiency 20 - 30 ng/mL (50 - 75 nmol/L) Sufficiency 30 - 100 ng/mL (75 - 250 nmol/L) Toxicity >100 ng/mL (>250 nmol/L) Serum or plasma albumin mima urement (mass/volume)Ordered By: Lincoln Hartley on 08-30-2023 Albumin [Mass/Vol] 2.8 g/dL 3.2-5.0 [facility] Serum or plasma albumin/glob ulin mass ratioOrdered By: Lincoln Hartley on 08-30-2023 Albumin/Globulin [Mass ratio] 0.8 {ratio} 0.9-2.4 [facility] Serum or plasma calcium mima urement (mass/volume)Ordered By: Lincoln Hartley on 08-30-2023 Calcium [Mass/Vol] 8.6 mg/dL 8.5-10.1 [facility] Serum or plasma creatinine m easurement (mass/volume)Ordered By: Lincoln Hartley on 08-30-2023 Creatinine [Mass/Vol] 0.72 mg/dL 0.55-1.02 [facility] Comment on above: The validity of the calculated GFR & GFRAA in patients over 70 years has not been determined. Clinical correlation is essential. Serum or plasma urea nitroge n measurement (mass/volume)Ordered By: Lincoln Hartley on 08-30-2023 Urea nitrogen [Mass/Vol] 19 mg/dL 7-18 [facility] Thin prep Papanicolaou smear with manual screeningOrdered By: Lincolnflorence Hartley on 08-30-2023 Thin prep Papanicolaou smear with manual screening 17 U/L 15-37 [facility] Thin prep Papanicolaou smear with manual screening 2 5-15 [facility] Final Surgical Pathology Rep [facility] 08-22-2023 Final Surgical Pathology Report . Pathology Reports Accession: Collected Date/Time: Received Date/Time: Pathologist: [id number] 08/21/2023 08:50 EDT 08/21/2023 14:35 EDT MAGDY RUBIO MD Final Surgical Pathology Report DIAGNOSIS: A. RIGHT COLON POLYP: - FOCAL ACTIVE COLITIS PATTERN - SMALL BENIGN LYMPHOID AGGREGATE Comment: The biopsies show polypoid colon mucosa with rare foci of cryptitis and patchy increase in chronic inflammatory cells in the lamina propria. These changes are nonspecific. B. LEFT COLON POLYPS: - POLYPOID FRAGMENTS OF COLON MUCOSA WITH NO SIGNIFICANT PATHOLOGIC CHANGES C. LEFT COLON -SIGMOID AT 30 CM: - POLYPOID FRAGMENTS OF GRANULATION TISSUE - ULCER BASE INFLAMMATORY DEBRIS AND COLON MUCOSA WITH REACTIVE CHANGES Comment: No evidence of any specific epithelial polyp identified. CLINICAL INFORMATION: MELENA Procedure: COLONOSCOPY WITH POLYPECTOMY AND BXS Preoperative diagnosis: HEMATOCHEZIA SCREENING Postoperative diagnosis: HEMATOCHEZIA SCREENING SPECIMEN: A RIGHT COLON POLYP B LEFT COLON POLYPS C NON-SPECIFIC INFLAMMATION LEFT COLON - SIGMOID @ 30 CM GROSS DESCRIPTION: All parts labelled with patient name and [id number] A. Received in formalin labeled right colon polyp are 2 mccoy-pink tissue fragments measuring 0.4 x 0.2 and 0.4 x 0.3 cm. TS-1 B. Received in formalin labeled left colon polyps are 2 mccoy-pink tissue fragments measuring 0.4 x 0.2 and 0.5 x 0.3 cm in greatest dimension. TS-1 C. Received in formalin labeled left colon are 4 mccoy-pink tissue fragments measuring 0.3 to 0.4 x 0.2 cm. TS-1 Ann Mccray, [employer] Licensee/ Dr. Ben Burgos, Pathologist Dictated by Ann Mccray MICROSCOPIC DESCRIPTION: The microscopic examination is performed, except in the case of Gross Only. Electronically Signed by Pathology Report verified by [facility] MAGDY RUBIO Sign out Date: 08/22/2023 14:48 Performing Lab: [facility], [address] [place] [address] Pathology Dept Pathology Reports Accession: Collected Date/Time: Received Date/Time: Pathologist: [id number] 08/21/2023 08:50 EDT 08/21/2023 14:35 EDT MAGDY RUBIO MD Disclaimer If ancillary studies were utilized, the following Laboratory Developed Test (LDT) disclaimer will apply: Under CLIA requirements, [facility] Pathology Laboratory is qualified to perform high complexity testing. For all ancillary stains, positive and negative controls stain appropriately. Performance characteristics of immunohistochemical and chromogenic in-situ hybridization tests have been determined by [facility] Pathology Laboratory. These tests are used for clinical purposes, They should not be regarded as investigational or for research. Normal [facility] ([place]) US SOFT TISSUE MASS OF NECKo n 08-19-2023 US SOFT TISSUE MASS OF NECK ORIGINAL HISTORY: Palpable nodule COMPARISON: No FINDINGS: No sonographic abnormality is seen in the area of interest. IMPRESSION: Negative. Interpreted by: Luis Virgen MD Preliminary Report By: Luis Virgen MD Electronically signed By Luis Virgen MD Dictated Date: 08/19/2023 12:50:04 PM Prelim Date: 08/19/2023 12:50:49 PM Sign Date: 08/19/2023 12:50:49 PM Ordering Provider: MARCO Lopes [facility] ([place]) .Auto Diffon 08-01-2023 Basophil, Absolute 0.0 10 3/mcL Normal 0.0-0.2 [facility] ([place]) Comment on above: Performed By: #### C JUANCARLOS MONTERO ANEU #### [address] [address] Basophils/100 WBC (Bld) 0.8 % Normal 0.0-2.5 [facility] ([place]) Comment on above: Performed By: #### C JUANCARLOS MONTERO ANEU #### [address] [address] Eosinophil, Absolute 0.2 10 3/mcL Normal 0.0-0.4 [facility] ([place]) Comment on above: Performed By: #### C JUANCARLOS MONTERO ANEU #### [address] [address] Eosinophils/100 WBC (Bld) 5.7 % Normal 0.0-7.0 [facility] ([place]) Comment on above: Performed By: #### C JUANCARLOS MONTERO ANEU #### [address] [address] Lymphocyte, Absolute 1.0 10 3/mcL Normal 0.8-3.9 [facility] ([place]) Comment on above: Performed By: #### C JUANCARLOS MONTERO ANEU #### [address] [address] Lymphocytes/100 WBC (Bld) 25.0 % Normal 10.0-50.0 [facility] ([place]) Comment on above: Performed By: #### C JUANCARLOS MONTERO ANEU #### [address] [address] Monocyte, Absolute 0.6 10 3/mcL Normal 0.2-1.0 [facility] ([place]) Comment on above: Performed By: #### C JUANCARLOS MONTERO, ANEU #### [address] [address] Monocytes/100 WBC (Bld) 16.4 % High 1.7-13.0 [facility] ([place]) Comment on above: Performed By: #### JUANCARLOS CASTORENA, ANEU #### [address] [address] Neutrophils/100 WBC (Bld) 52.1 % Normal 37.0-80.0 [facility] ([place]) Comment on above: Performed By: #### C JUANCARLOS MONTERO, ANEU #### [address] [address] .NEUABSon 08-01-2023 Neutrophil, Absolute 2.0 10 3/mcL Low 2.9-6.2 [facility] ([place]) Comment on above: Performed By: #### C JUANCARLOS MONTERO, ANEU #### [address] [address] CBCon 08-01-2023 Erythrocyte distribution width (RBC) [Ratio] 15.3 % High 11.5-14.5 [facility] ([place]) Comment on above: Performed By: #### C JUANCARLOS MONTERO, ANEU #### [address] [address] Hematocrit (Bld) [Volume fraction] 33.5 % Low 37.0-47.0 [facility] ([place]) Comment on above: Performed By: #### JUANCARLOS CASTORENA, ANEU #### [address] [address] Hgb 11.1 G/dL Low 12.0-16.0 [facility] ([place]) Comment on above: Performed By: #### C JUANCARLOS MONTERO, ANEU #### [address] [address] MCH (RBC) [Entitic mass] 27.8 pg Normal 27.0-31.2 [facility] ([place]) Comment on above: Performed By: #### C JUANCARLOS MONTERO ANEU #### [place] [address] MCHC 33.0 G/dL Normal 33.0-37.0 [facility] ([place]) Comment on above: Performed By: #### C JUANCARLOS MONTERO ANEU #### [place] [address] MCV (RBC) [Entitic vol] 84.3 fL Normal 80.0-94.0 [facility] ([place]) Comment on above: Performed By: #### JUANCARLOS CASTORENA ANEU #### [place] [address] Platelet 257 10 3/mcL Normal 130-400 [facility] ([place]) Comment on above: Performed By: #### JUANCARLOS CASTORENA ANEU #### [place] [address] Platelet mean volume (Bld) [Entitic vol] 8.2 fL Normal 7.4-10.4 [facility] ([place]) Comment on above: Performed By: #### JUANCARLOS CASTORENA ANEU #### [place] [address] RBC 3.98 10 6/mcL Low 4.20-5.40 [facility] ([place]) Comment on above: Performed By: #### JUANCARLOS CASTORENA ANEU #### [place] [address] WBC 3.8 10 3/mcL Low 4.6-10.8 [facility] ([place]) Comment on above: Performed By: #### JUANCARLOS CASTORENA ANEU #### [place] [address] .Auto Diffon 03-15-2023 Basophil, Absolute 0.0 10 3/mcL Normal 0.0-0.2 [facility] ([place]) Comment on above: Performed By: #### G FR, PBNP, LIPID, CBC, JUANCARLOS, ANEU, CMP, TSH #### [address] [address] Basophils/100 WBC (Bld) 0.8 % Normal 0.0-2.5 [facility] ([place]) Comment on above: Performed By: #### G FR, PBNP, LIPID, CBC, ADIFF, ANEU, CMP, TSH #### [address] [address] Eosinophil, Absolute 0.2 10 3/mcL Normal 0.0-0.4 [facility] ([place]) Comment on above: Performed By: #### G FR, PBNP, LIPID, CBC, ADIFF, ANEU, CMP, TSH #### [address] [address] Eosinophils/100 WBC (Bld) 5.8 % Normal 0.0-7.0 [facility] ([place]) Comment on above: Performed By: #### G FR, PBNP, LIPID, CBC, ADIFF, ANEU, CMP, TSH #### [address] [address] Lymphocyte, Absolute 1.0 10 3/mcL Normal 0.8-3.9 [facility] ([place]) Comment on above: Performed By: #### G FR, PBNP, LIPID, CBC, ADIFF, ANEU, CMP, TSH #### [address] [address] Lymphocytes/100 WBC (Bld) 27.3 % Normal 10.0-50.0 [facility] ([place]) Comment on above: Performed By: #### G FR, PBNP, LIPID, CBC, ADIFF, ANEU, CMP, TSH #### [address] [address] Monocyte, Absolute 0.4 10 3/mcL Normal 0.2-1.0 [facility] ([place]) Comment on above: Performed By: #### G FR, PBNP, LIPID, CBC, ADIFF, ANEU, CMP, TSH #### [address] [address] Monocytes/100 WBC (Bld) 12.1 % Normal 1.7-13.0 [facility] ([place]) Comment on above: Performed By: #### G FR, PBNP, LIPID, CBC, ADIFF, ANEU, CMP, TSH #### Jaime [address] [address] Neutrophils/100 WBC (Bld) 54.0 % Normal 37.0-80.0 [facility] ([place]) Comment on above: Performed By: #### G FR, PBNP, LIPID, CBC, ADIFF, ANEU, CMP, TSH #### Jaime [place] [address] [place], [place] [address] .GFRon 03-15-2023 GFR Non- 92 ml/min/1.73sqm Normal [facility] ([place]) Comment on above: Result Comment: GFR Population mean for , Non- Americans Ages 20-29 = 116 mL/min/1.73 sq.m. Ages 30-39 = 107 mL/min/1.73 sq.m. Ages 40-49 = 99 mL/min/1.73 sq.m. Ages 50-59 = 93 mL/min/1.73 sq.m. Ages 60-69 = 85 mL/min/1.73 sq.m. Ages 70+ = 75 mL/min/1.73 sq.m. Chronic Kidney Disease: Less than 60 mL/min/1.73 square meters End Stage Renal Disease: Less than 15 mL/min/1.73 square meters Performed By: #### G FR, PBNP, LIPID, CBC, ADIFF, ANEU, CMP, TSH ####[address] [address] GFR 112 ml/min/1.73sqm Normal [facility] ([place]) Comment on above: Result Comment: GFR Population mean for , Non- Americans Ages 20-29 = 116 mL/min/1.73 sq.m. Ages 30-39 = 107 mL/min/1.73 sq.m. Ages 40-49 = 99 mL/min/1.73 sq.m. Ages 50-59 = 93 mL/min/1.73 sq.m. Ages 60-69 = 85 mL/min/1.73 sq.m. Ages 70+ = 75 mL/min/1.73 sq.m. Chronic Kidney Disease: Less than 60 mL/min/1.73 square meters End Stage Renal Disease: Less than 15 mL/min/1.73 square meters Performed By: #### G FR, PBNP, LIPID, CBC, ADIFF, ANEU, CMP, TSH ####[address] [address] .NEUABSon 03-15-2023 Neutrophil, Absolute 1.9 10 3/mcL Low 2.9-6.2 [facility] ([place]) Comment on above: Performed By: #### G FR, PBNP, LIPID, CBC, ADIFF, ANEU, CMP, TSH #### [place] [address] CBCon 03-15-2023 Erythrocyte distribution width (RBC) [Ratio] 16.0 % High 11.5-14.5 [facility] ([place]) Comment on above: Performed By: #### G FR, PBNP, LIPID, CBC, ADIFF, ANEU, CMP, TSH #### [place] [address] Hematocrit (Bld) [Volume fraction] 34.0 % Low 37.0-47.0 [facility] ([place]) Comment on above: Performed By: #### G FR, PBNP, LIPID, CBC, ADIFF, ANEU, CMP, TSH #### [address] [address] Hgb 11.0 G/dL Low 12.0-16.0 [facility] ([place]) Comment on above: Performed By: #### G FR, PBNP, LIPID, CBC, ADIFF, ANEU, CMP, TSH #### [place] [address] MCH (RBC) [Entitic mass] 28.0 pg Normal 27.0-31.2 [facility] ([place]) Comment on above: Performed By: #### G FR, PBNP, LIPID, CBC, ADIFF, ANEU, CMP, TSH #### [place] [address] MCHC 32.4 G/dL Low 33.0-37.0 [facility] ([place]) Comment on above: Performed By: #### G FR, PBNP, LIPID, CBC, ADIFF, ANEU, CMP, TSH #### [address] [address] MCV (RBC) [Entitic vol] 86.4 fL Normal 80.0-94.0 [facility] ([place]) Comment on above: Performed By: #### G FR, PBNP, LIPID, CBC, ADIFF, ANEU, CMP, TSH #### [address] [address] Platelet 234 10 3/mcL Normal 130-400 [facility] ([place]) Comment on above: Performed By: #### G FR, PBNP, LIPID, CBC, ADIFF, ANEU, CMP, TSH #### [address] [address] Platelet mean volume (Bld) [Entitic vol] 8.5 fL Normal 7.4-10.4 [facility] ([place]) Comment on above: Performed By: #### G FR, PBNP, LIPID, CBC, ADIFF, ANEU, CMP, TSH #### [address] [address] RBC 3.94 10 6/mcL Low 4.20-5.40 [facility] ([place]) Comment on above: Performed By: #### G FR, PBNP, LIPID, CBC, ADIFF, ANEU, CMP, TSH #### [address] [address] WBC 3.5 10 3/mcL Low 4.6-10.8 [facility] ([place]) Comment on above: Performed By: #### G FR, PBNP, LIPID, CBC, ADIFF, ANEU, CMP, TSH #### [address] [address] CMPon 03-15-2023 Albumin Level 3.4 G/dL Normal 3.4-4.8 [facility] ([place]) Comment on above: Performed By: #### G FR, PBNP, LIPID, CBC, ADIFF, ANEU, CMP, TSH ####Jaime [address] [place], [place] [address] Albumin/Globulin [Mass ratio] 0.9 {ratio} Low 1.1-2.5 [facility] ([place]) Comment on above: Performed By: #### G FR, PBNP, LIPID, CBC, ADIFF, ANEU, CMP, TSH ####Jaime [address] [place], [place] [address] ALP [Catalytic activity/Vol] 72 U/L Normal 40-135 [facility] ([place]) Comment on above: Performed By: #### G FR, PBNP, LIPID, CBC, ADIFF, ANEU, CMP, TSH ####[address] [place], [place] [address] ALT [Catalytic activity/Vol] 23 U/L Normal 14-59 [facility] ([place]) Comment on above: Performed By: #### G FR, PBNP, LIPID, CBC, ADIFF, ANEU, CMP, TSH ####[address] [place], [place] [address] AST [Catalytic activity/Vol] 19 U/L Normal 10-40 [facility] ([place]) Comment on above: Performed By: #### G FR, PBNP, LIPID, CBC, ADIFF, ANEU, CMP, TSH ####[address] [place], [place] [address] Bili Total 0.6 mg/dL Normal 0.2-1.0 [facility] ([place]) Comment on above: Result Comment: Use of this assay is not recommended for patients undergoing treatment with eltrombopag due to the potential for falsely elevated results. Performed By: #### G FR, PBNP, LIPID, CBC, ADIFF, ANEU, CMP, TSH ####Ja[address] [place], [place] [address] BUN/Creatinine Ratio 23 ratio Normal 7-27 [facility] ([place]) Comment on above: Performed By: #### G FR, PBNP, LIPID, CBC, ADIFF, ANEU, CMP, TSH ####[address] [place], [place] [address] Calcium [Mass/Vol] 9.1 mg/dL Normal 8.4-10.2 [facility] ([place]) Comment on above: Performed By: #### G FR, PBNP, LIPID, CBC, ADIFF, ANEU, CMP, TSH ####[address] [place], [place] [address] Chloride [Moles/Vol] 102 mmol/L Normal 98-107 [facility] ([place]) Comment on above: Performed By: #### G FR, PBNP, LIPID, CBC, ADIFF, ANEU, CMP, TSH ####[address] [place], [place] [address] CO2 [Moles/Vol] 28 mmol/L Normal 23-31 [facility] ([place]) Comment on above: Performed By: #### G FR, PBNP, LIPID, CBC, ADIFF, ANEU, CMP, TSH ####[address] [place], [place] [address] Creatinine [Mass/Vol] 0.64 mg/dL Normal 0.55-1.02 [facility] ([place]) Comment on above: Performed By: #### G FR, PBNP, LIPID, CBC, ADIFF, ANEU, CMP, TSH ####[address] [place], [place] [address] Electrolyte Balance 10.0 mEq/L Normal 4.0-15.0 [facility] ([place]) Comment on above: Performed By: #### G FR, PBNP, LIPID, CBC, ADIFF, ANEU, CMP, TSH ####[address] [place], [place] [address] Globulin 3.6 G/dL Normal [facility] ([place]) Comment on above: Performed By: #### G FR, PBNP, LIPID, CBC, ADIFF, ANEU, CMP, TSH ####[address] [place], [place] [address] Glucose [Mass/Vol] 88 mg/dL Normal 80-115 [facility] ([place]) Comment on above: Performed By: #### G FR, PBNP, LIPID, CBC, ADIFF, ANEU, CMP, TSH ####[address] [place], [place] [address] Potassium [Moles/Vol] 4.5 mmol/L Normal 3.5-5.1 [facility] ([place]) Comment on above: Performed By: #### G FR, PBNP, LIPID, CBC, ADIFF, ANEU, CMP, TSH ####[address] [place], [place] [address] Sodium [Moles/Vol] 140 mmol/L Normal 136-145 [facility] ([place]) Comment on above: Performed By: #### G FR, PBNP, LIPID, CBC, ADIFF, ANEU, CMP, TSH ####[address] [place], [place] [address] Total Protein 7.0 G/dL Normal 6.4-8.2 [facility] ([place]) Comment on above: Performed By: #### G FR, PBNP, LIPID, CBC, ADIFF, ANEU, CMP, TSH ####[address] [place], [place] [address] Urea nitrogen [Mass/Vol] 15 mg/dL Normal 7-18 [facility] ([place]) Comment on above: Performed By: #### G FR, PBNP, LIPID, CBC, ADIFF, ANEU, CMP, TSH ####[address] [place], [place] [address] LIPIDon 03-15-2023 Cholesterol [Mass/Vol] 228 mg/dL High 0-200 [facility] ([place]) Comment on above: Result Comment: Chol esterol Reference Interval: Less than 200 Desirable 200-239 Borderline high risk 240 and above High risk Performed By: #### G FR, PBNP, LIPID, CBC, ADIFF, ANEU, CMP, TSH ####[address] [place], [place] [address] Cholesterol in HDL [Mass/Vol] 87 mg/dL High 40-60 [facility] ([place]) Comment on above: Performed By: #### G FR, PBNP, LIPID, CBC, ADIFF, ANEU, CMP, TSH ####[address] [place], [place] [address] Cholesterol in LDL [Mass/Vol] 127 mg/dL Normal 0-130 [facility] ([place]) Comment on above: Performed By: #### G FR, PBNP, LIPID, CBC, ADIFF, ANEU, CMP, TSH ####Ja[address] [place], [place] [address] Triglyceride [Mass/Vol] 70 mg/dL Normal 0-150 [facility] ([place]) Comment on above: Result Comment: Trig lyceride Reference Interval: Less than 150 Normal 150-199 Borderline high risk 200-499 High risk 500 or higher Very high risk Performed By: #### G FR, PBNP, LIPID, CBC, ADIFF, ANEU, CMP, TSH ####Jaime [address] [place] [id number] PBNPon 03-15-2023 Natriuretic peptide B (Bld) [Mass/Vol] 97 pg/mL Normal 0-125 [facility] ([place]) Comment on above: Result Comment: NT-p roBNP results of less than 300 pg/mL effectively rules out acute congestive heart failure with 99% negative predictive value. Performed By: #### G FR, PBNP, LIPID, CBC, ADIFF, ANEU, CMP, TSH #### [address] [place], [place] [address] TSHon 03-15-2023 TSH Qn 3.04 m[IU]/L Normal 0.36-3.74 [facility] ([place]) Comment on above: Performed By: #### G FR, PBNP, LIPID, CBC, ADIFF, ANEU, CMP, TSH ####[address] [place], [place] [address] US BLADDERon 03-07-2023 US BLADDER ORIGINAL EXAMINATION: ULTRASOUND OF THE URINARY BLADDER03/05/2023 3:22 pm TECHNIQUE: Pre and postvoid imaging of the bladder. COMPARISON: None HISTORY: ORDERING SYSTEM PROVIDED HISTORY: Reason for Exam: urinary incontinence FINDINGS: Bladder prevoid volume: 130 cc. There is no abnormal bladder wall thickening, mass or filling defect. No stones.. Postvoid bladder volume: 20 cc. No pelvic free fluid is seen. IMPRESSION: Unremarkable bladder ultrasound. Interpreted by: Alvin Holguin MD Preliminary Report By: Alvin Holguin MD Electronically signed By Alvin Holguin MD Dictated Date: 03/07/2023 10:10:14 AM Prelim Date: 03/07/2023 10:19:47 AM Sign Date: 03/07/2023 10:19:47 AM Ordering Provider: MARCO Lopes [facility] ([place]) .Urinalysis Microscopic (AO) on 02-05-2023 UA Bacteria 3+ /hpf Abnormal [facility] ([place]) Comment on above: Performed By: #### U AMICAO, UA ####[address] [place], [place] [address] UA RBC None Seen Normal None Seen [facility] ([place]) Comment on above: Performed By: #### U AMICAO, UA ####[address] [place] [address] UA Squam Epithelial 0-5 Abnormal None Seen [facility] ([place]) Comment on above: Performed By: #### U AMICAO, UA ####[address] [place] [address] UA WBC 0-5 Abnormal None Seen [facility] ([place]) Comment on above: Performed By: #### U AMICAO, UA ####Jaime [address] [place] [address] IMIPENEM:SUSC:PT:ISOLATE:ORD QN:MICon 02-05-2023 Imipenem LINA [Susc] >100,000 cfu/ml Escherichia coli [facility] Work Phone: Imipenem LINA [Susc]on 2022 Escherichia coli Escherichia coli [facility] Work Phone: LABORATORYOrdered By: Daphne Summers on 02-05-2023 Appearance (U) Clear (02/05/23 4:32 PM) Invalid Interpretation Code Clear AO Auto Urine SS Bacteria LM.HPF (Urine sed) [#/Area] 3 /[HPF] Invalid Interpretation Code AO Auto Urine SS Bilirubin Ql (U) Negative (02/05/23 4:32 PM) Invalid Interpretation Code Negative AO Auto Urine SS Color (U) Yellow (02/05/23 4:32 PM) Invalid Interpretation Code AO Auto Urine SS Glucose Test strip (U) [Mass/Vol] Negative Invalid Interpretation Code Negativemg/d L AO Auto Urine SS Hemoglobin Auto test strip (U) [Mass/Vol] Negative (02/05/23 4:32 PM) Invalid Interpretation Code Negative AO Auto Urine SS Ketones Ql (U) Negative Invalid Interpretation Code Negativemg/d L AO Auto Urine SS UA Leuk Est Trace *ABN* (02/05/23 4:32 PM) Invalid Interpretation Code Negative AO Auto Urine SS UA Nitrite Positive *ABN* (02/05/23 4:32 PM) Invalid Interpretation Code Negative AO Auto Urine SS UA pH 6.5 (02/05/23 4:32 PM) Invalid Interpretation Code 5.0 - 8.0 AO Auto Urine SS UA Protein Negative Invalid Interpretation Code Negativemg/d L AO Auto Urine SS UA RBC None Seen /HPF Invalid Interpretation Code None Seen/HPF AO Auto Urine SS UA Spec Grav 1.025 (02/05/23 4:32 PM) Invalid Interpretation Code 1.015-1.025 AO Auto Urine SS UA Specimen Type Clean Catch (02/05/23 4:32 PM) Invalid Interpretation Code AO Auto Urine SS UA Squam Epithelial 0-5 /HPF Invalid Interpretation Code None Seen/HPF AO Auto Urine SS UA Urobilinogen 0.2 E.U./dL Invalid Interpretation Code 0.2-1.0E.U./ dL AO Auto Urine SS WBC LM.HPF (Urine sed) [#/Area] 0-5 /HPF Invalid Interpretation Code None Seen/HPF AO Auto Urine SS UAon 02-05-2023 Color (U) Yellow Normal [facility] ([place]) Comment on above: Order Comment: MICRO SCOPY REGARDLESS OF RESULTS Performed By: #### U AMICAFranklin, UA ####[address] [place], [place] [address] Glucose (U) [Mass/Vol] Negative Normal Negative [facility] ([place]) Comment on above: Order Comment: MICRO SCOPY REGARDLESS OF RESULTS Performed By: #### U AMICAO, UA ####Ja[address] [place], [place] [address] Ketones Ql (U) Negative Normal Negative [facility] ([place]) Comment on above: Order Comment: MICRO SCOPY REGARDLESS OF RESULTS Performed By: #### U AMICAO, UA ####Jaime [address] [place], [place] [address] UA Appear Clear Normal Clear [facility] ([place]) Comment on above: Order Comment: MICRO SCOPY REGARDLESS OF RESULTS Performed By: #### U AMICAO, UA ####[address] [place], [place] [address] UA Blood Negative Normal Negative [facility] ([place]) Comment on above: Order Comment: MICRO SCOPY REGARDLESS OF RESULTS Performed By: #### U AMICAO, UA ####[address] [place], [place] [address] UA Leuk Est Trace Abnormal Negative [facility] ([place]) Comment on above: Order Comment: MICRO SCOPY REGARDLESS OF RESULTS Performed By: #### U AMICAO, UA ####[address] [place], [place] [address] UA Nitrite Positive Abnormal Negative [facility] ([place]) Comment on above: Order Comment: MICRO SCOPY REGARDLESS OF RESULTS Performed By: #### U AMICAO, UA ####[address] [place], [place] [address] UA pH 6.5 Normal 5.0 - 8.0 [facility] ([place]) Comment on above: Order Comment: MICRO SCOPY REGARDLESS OF RESULTS Performed By: #### U AMICAO, UA ####[address] [place], [place] [address] UA Protein Negative Normal Negative [facility] ([place]) Comment on above: Order Comment: MICRO SCOPY REGARDLESS OF RESULTS Performed By: #### U AMICAO, UA ####[address] [place], [place] [address] UA Spec Grav 1.025 Normal 1.015-1.025 [facility] ([place]) Comment on above: Order Comment: MICRO SCOPY REGARDLESS OF RESULTS Performed By: #### U AMICAO, UA ####[address] [place], [place] [address] UA Specimen Type Clean Catch Normal [facility] ([place]) Comment on above: Order Comment: MICRO SCOPY REGARDLESS OF RESULTS Performed By: #### U AMICAO, MERLYN ####Jaime [address] [place], [place] [address] UA Urobilinogen 0.2 E.U./dL Normal 0.2-1.0 [facility] ([place]) Comment on above: Order Comment: MICRO SCOPY REGARDLESS OF RESULTS Performed By: #### U JENAROMERLYN ####[address] [place], [place] [address] Urobilinogen (U) [Mass/Vol] Negative Normal Negative [facility] ([place]) Comment on above: Order Comment: MICRO SCOPY REGARDLESS OF RESULTS Performed By: #### Kenan JENARO MERLYN ####[address] [place], [place] [address] Laboratory - Chemistry and C hemistry - challengeon 08-27-2022 Free T4 [Mass/Vol] 1.28 ng/dL 0.76-1.46 [facility] Work Phone: No Panel Informationon 08-27 Thyroid Stimulating Hormone (TSH) 2.09 uIU/mL 0.358-3.74 [facility] Work Phone: Vitamin D 25-Hydroxy 41.1 ng/mL [facility] Work Phone: Comment on above: Vitamin D 25([place]) Sta tus Range Deficiency <20 ng/mL (50nmol/L) Insufficiency 20 - 30 ng/mL (50 - 75 nmol/L) Sufficiency 30 - 100 ng/mL (75 - 250 nmol/L) Toxicity >100 ng/mL (>250 nmol/L) CNPDulce 04-12-2020 AILYN Telephone (BRANDI) -- NIKI MEYER I ([id number]) 1955 F Date Time Provider Department 04/12/20 RUPAL HERNANDEZ During your visit today, we recorded the following information about you: Rupal Hernandez MD 04/12/2020 9:00 AM Signed Please notify patient that her test results show that she is iron deficient. Component Latest Ref Rng AND Units 04/11/2020 Iron 41 - 186 ug/dL 29 (L) TIBC 232 - 386 ug/dL 319 Transferrin Saturation 15 - 57 % 9 (L) Retic % 0.4 - 2.0 % 1.0 Abs Retic 0.0180 - 0.1000 M/uL 0.043 Ferritin 14.7 - 205.1 ng/mL 79.4 Resume Slow Fe 325mg once daily and follow up with PCP. MD Aurora Suero LPN, JAEL 04/12/2020 12:52 PM Signed Pt. Says she spoke with physician, had given her the results and further instruction. Aurora Self LPN Allergies As of Date: 04/12/2020 Noted Allergy Reaction CAFFEINE 04/11/2020 14 - Other: See Comments Comments: Headaches MONOSODIUM GLUTAMATE 04/11/2020 14 - Other: See Comments Comments: Pain NASALCROM (CROMOLYN) 04/11/2020 2 - Rash SULFA (SULFONAMIDE ANTIBIOTICS) 04/11/2020 14 - Other: See Comments Comments: Shaking Date Reviewed: 04/11/2020 Reviewed by: Heather Munoz - Fully Assessed Reason for Visit: Results [95] Prescriptions as of 04/12/2020 Sig: LEVOTHYROXINE 50 MCG TABLET Take one tablet Mon thru Sat,* ALENDRONATE 70 MG TABLET Take 70 mg by mouth one time * CALCIUM + D ORAL Take 1 tablet by mouth once d* ASCORBIC ACID (VITAMIN C) 1,0* Take 1,000 mg by mouth once d* MULTIVITAMIN ORAL Take 1 tablet by mouth once d* VITAMIN E 200 UNIT CAPSULE Take 200 Units by mouth once * OMEGA 3 FISH OIL ORAL Take 1 capsule by mouth once * VITAMIN B COMPLEX CAPSULE Take 1 capsule by mouth once * ACETAMINOPHEN 325 MG TABLET Take 650 mg by mouth as neede* OTC PRODUCT Kevon: as necessary DOCUSATE SODIUM 100 MG CAPSULE Take 1 capsule by mouth twice* Problem List As Of Date: 04/12/2020 (None) Encounter Status:Closed by RUPAL HERNANDEZ MD on 04/12/20 Normal [facility] CBC and Differentialon 04-11 Abs Baso 0.04 k/uL Normal <0.11 [facility] Abs [place] 0.67 k/uL Normal <0.87 [facility] Abs Neut 2.24 k/uL Normal 1.45-7.50 [facility] Absolute nRBC <0.01 Normal <0.01 [facility] Basophils/100 WBC (Bld) 0.9 % Normal [facility] DTYPE Auto Diff Normal [facility] Eosinophils (Bld) [#/Vol] 0.19 10*3/uL Normal <0.46 [facility] Eosinophils/100 WBC (Bld) 4.1 % Normal [facility] Erythrocyte distribution width (RBC) [Ratio] 15.0 % Normal 11.5-15.0 [facility] Hematocrit (Bld) [Volume fraction] 36.0 % Normal 36.0-46.0 [facility] Hemoglobin (Bld) [Mass/Vol] 11.4 g/dL Low 11.5-15.5 [facility] Lymphocytes (Bld) [#/Vol] 1.44 10*3/uL Normal 1.00-4.00 [facility] Lymphocytes/100 WBC (Bld) 31.4 % Normal [facility] MCH (RBC) [Entitic mass] 27.4 pG Normal 26.0-34.0 [facility] MCHC (RBC) [Mass/Vol] 31.7 g/dL Normal 30.5-36.0 [facility] MCV (RBC) [Entitic vol] 86.5 fL Normal 80.0-100.0 [facility] Monocytes/100 WBC (Bld) 14.6 % Normal [facility] Neutrophils/100 WBC (Bld) 49.0 % Normal [facility] NRBCs 0.0 /100 WBC Normal 0 [facility] Platelet mean volume (Bld) [Entitic vol] 10.5 fL Normal 9.0-12.7 [facility] Platelets (Bld) [#/Vol] 275 10*3/uL Normal 150-400 [facility] RBC (Bld) [#/Vol] 4.16 10*6/uL Normal 3.90-5.20 [facility] [place] WBC (Bld) [#/Vol] 4.59 10*3/uL Normal 3.70-11.00 [facility] [place] CNOVSPon 04-11-2020 CNOVSP Visit (SP) Office (H EMAWS) -- NIKI MEYER I ([id number]) 1955 F Date Time Provider Department 04/11/20 3:00 PM RUPAL HERNANDEZ During your visit today, we recorded the following information about you: Temperature Pulse Blood pressure Weight 98.6 degrees 71/minute 117/56 59.4 kg Height 1.537 m Rupal Hernandez MD 04/11/2020 3:32 PM Signed If the anemia get worst on Slow FE, or you have stomach problems with Fosamx; then you need further evaluation ( Endoscopy ) and possible stoppoing Fosmax. Space Iron AND vitamins at less 4 hours form thyroid medicine and Foxamax Rupal Hernandez MD 04/12/2020 9:04 AM Signed Hematology and Medical Oncology PATIENT NAME: Niki Meyer. CLINIC NO: [id number]. ATTENDING PHYSICIAN: Rupal Hernandez MD. DATE OF SERVICE:04/11/2020. DIAGNOSIS: Anemia Consultation requested by Dr. Mensah for an opinion regarding anemia AND leukopenia. My final recommendations will be communicated back to the requesting physician by way of shared Medical record or letter to requesting physician via US mail. PERFORMANCE STATUS:100% HPI: A 65-year-old lady with history of osteoporosis and hypothyroidism. Patient has history of osteoporotic fracture and she was treated with alendronate. She is also on Synthroid for hypothyroidism and her recent evaluation of thyroid showed multiple benign thyroid nodules. She has no history of liver disease or chronic kidney disease. She was on Slow Fe for her anemia until 2 months ago when she complained of having problems with constipation. She has been on alendronate for over a year but it was stopped temporarily in January because of jaw pain which has resolved. She has no history of nausea, vomiting or epigastric tenderness. No history of fatigue, weight loss or frequent or recurrent infection. She has no fever, chills or night sweats. She had constipation problems on and off for the last several months. She had a screening colonoscopies 2 years ago and it was normal she is not taking aspirin or NSAIDs for her back pain. She denied history of tobacco or alcohol use. No family history of anemia, leukemia or bleeding disorder. She complained of one episode of severe headaches after taking alendronate several weeks ago. MEDICATIONS: Current Outpatient Medications Medication Sig - levothyroxine (SYNTHROID) 50 mcg tablet Take one tablet Sat thru Sat, skip Sat AND take two tablets on Saturday. - alendronate (FOSAMAX) 70 mg tablet Take 70 mg by mouth one time a week. In AM with cup of water on empty stomach. Nothing else by mouth and stay upright for 30 min. - calcium carbonate/vitamin D3 (CALCIUM + D ORAL) Take 1 tablet by mouth once daily. - Ascorbic Acid (VITAMIN C) 1,000 mg tablet Take 1,000 mg by mouth once daily. - MULTIVITAMIN ORAL Take 1 tablet by mouth once daily. - Vitamin E, dl, acetate, (VITAMIN E) 200 unit capsule Take 200 Units by mouth once daily. - omega-3 fatty acids/fish oil (OMEGA 3 FISH OIL ORAL) Take 1 capsule by mouth once daily. - vitamin b complex capsule Take 1 capsule by mouth once daily. - acetaminophen (TYLENOL) 325 mg tablet Take 650 mg by mouth as needed. - OTC PRODUCT Kevon: as necessary - docusate sodium (COLACE) 100 mg capsule Take 1 capsule by mouth twice daily. No current facility-administered medications for this visit. . ALLERGIES: ALLERGIES Allergen Reactions - Caffeine Other: See Comments Headaches - Monosodium Glutamate Other: See Comments Pain - Nasalcrom [Cromolyn] Rash - Sulfa (Sulfonamide * Other: See Comments Shaking . PAST MEDICAL HISTORY: PAST MEDICAL HISTORY Diagnosis Date - Hypothyroidism - Osteoporosis . PAST SURGICAL HISTORY: PAST SURGICAL HISTORY Procedure Laterality Date - BREAST BIOPSY Right - TONSILLECTOMY HX . FAMILY HISTORY: FAMILY HISTORY Problem Relation Age of Onset - Heart Father . SOCIAL HISTORY: Social History Tobacco Use - Smoking status: Never Smoker - Smokeless tobacco: Never Used Substance Use Topics - Alcohol use: Never Frequency: Never - Drug use: Never . REVIEW OF SYSTEMS: CONSTITUTIONAL: No fevers, chills, nightsweats, unintended weight loss HEENT: Denies frequent or severe heaches, nasal congestion/sinus symptoms, problematic allergy problems. EYES: No diplopia or blurry vision. CARDIOVASCULAR: No chest pain, dyspnea, palpitations, orthopnea, PND, ankle edema. PULM: No dyspnea, unexplained cough. GI: No dysphagia/odynophagia, problematic reflux, constipation, diarrhea, changes in stool habits, hematochezia, melena. : No new urinary complaints, including dysuria, gross hematuria or pyuria. NEURO: No new balance problems, peripheral weakness/paresthesias or numbness of concern. MUSC-SKEL: No new joint pain, swelling, or erythema. PSY: No concerns regarding depression, anxiety or panic. INTEGUMENTARY: No new skin changes (rash, new or changing mole, new growth) PHYSICAL EXAMINATION: 65-year-old well-nourished well-developed female in no distress BP 117/56 Pulse 71 Temp (Src) 98.6 (Temporal) Ht 5' .5 (1.54m) Wt 131 lb (59.4kg) BMI 25.15 kg/(m2). HEENT: Head is normocephalic, atraumatic. Sclerae white, conjunctivae pink. PEERL. EOMs are intact. Oropharynx is benign. No thrush or ulcers LYMPHATICS: There is no palpable adenopathy in the neck, supraclavicular region, axillae, or groin. LUNGS: Lungs are clear to percussion and auscultation. HEART: Heart is normal without murmurs, gallops, or rubs. ABDOMEN: Soft and nontender without organomegaly. No masses can be palpated. EXTREMITIES: Are without edema. NEUROLOGIC: Exam is physiologic LABORATORY DATA: Component Latest Ref Rng AND Units 04/11/2020 WBC 3.70 - 11.00 k/uL 4.59 RBC 3.90 - 5.20 m/uL 4.16 Hemoglobin 11.5 - 15.5 g/dL 11.4 (L) Hematocrit 36.0 - 46.0 % 36.0 MCV 80.0 - 100.0 fL 86.5 MCH 26.0 - 34.0 pG 27.4 MCHC 30.5 - 36.0 g/dL 31.7 RDW-CV 11.5 - 15.0 % 15.0 Platelet Count 150 - 400 k/uL 275 MPV 9.0 - 12.7 fL 10.5 Neut% % 49.0 Abs Neut (ANC) 1.45 - 7.50 k/uL 2.24 Lymph% % 31.4 Abs Lymph 1.00 - 4.00 k/uL 1.44 [place]% % 14.6 Abs [place] <0.87 k/uL 0.67 Eosin% % 4.1 Abs Eosin <0.46 k/uL 0.19 Baso% % 0.9 Abs Baso <0.11 k/uL 0.04 Nucleated Reds 0 /100 WBC 0.0 Absolute nRBC <0.01 k/uL <0.01 Diff Type Auto Diff Component Latest Ref Rng AND Units 04/11/2020 Retic % 0.4 - 2.0 % 1.0 Abs Retic 0.0180 - 0.1000 M/uL 0.043 Peripheral blood smear: Normal neutrophil counts, and platelet is adequate Component Latest Ref Rng AND Units 04/11/2020 Iron 41 - 186 ug/dL 29 (L) TIBC 232 - 386 ug/dL 319 Transferrin Saturation 15 - 57 % 9 (L) Ferritin 14.7 - 205.1 ng/mL 79.4 BUN 15, creatinine 0.87 vitamin D 25 WNL, vitamin B12 860, and folic acid 42 Serum protein electrophoresis shows no M proteins ASSESSMENT: 65-year-old female with mild anemia secondary to iron deficiency. No evidence of neutropenia. Despite mild leukopenia, she has no history of recurrent or frequent infection. PLAN: - Resume Slow Fe once daily for anemia. Start Colace 100mg twice daily along with her iron, and MiraLAX once daily as needed for constipation. - I also instructed patient to space her iron and multivitamin 4 hours after her thyroid medication or Fosamax. - If the anemia get worst on Slow FE, or if she develops stomach problems with Fosamx; then further evaluation ( Endoscopy ) and possible stoppoing Fosmax. - No further evaluation is needed for benign leukopenia I spent 45 minutes in the visit, with more than 50% of the total dfvf-le-zley time of the visit in counseling / coordination of care. Rupal Hernandez MD. ELECTRONICALLY SIGNED Referring Provider: MARCO MENSAH [[id number]] Allergies As of Date: 04/11/2020 Noted Allergy Reaction CAFFEINE 04/11/2020 14 - Other: See Comments Comments: Headaches MONOSODIUM GLUTAMATE 04/11/2020 14 - Other: See Comments Comments: Pain NASALCROM (CROMOLYN) 04/11/2020 2 - Rash SULFA (SULFONAMIDE ANTIBIOTICS) 04/11/2020 14 - Other: See Comments Comments: Shaking Date Reviewed: 04/11/2020 Reviewed by: Heather Munoz - Fully Assessed Reason for Visit: New Patient Evaluation [154] Primary Visit Diagnosis:Anemia, unspecified type [D64.9] Other Visit Diagnosis:Iron deficiency anemia, unspecified iron deficiency anemia type [D50.9] Order(s):CBC + DIFF [SQCBCDIF] Order #: [id number] FUTURE IRON + TIBC [SQIRON] Order #: [id number] FUTURE FERRITIN BLD [SQFERR] Order #: [id number] FUTURE RETIC COUNT [SQRETIC] Order #: [id number] FUTURE docusate sodium (COLACE) 100 mg capsuleTake 1 capsule by mouth twice daily.Disp: 100 capsuleRfl: 0 Disposition: Return if symptoms worsen or fail to improve. Follow-up and Disposition History Recorded Prescriptions as of 04/11/2020 Sig: LEVOTHYROXINE 50 MCG TABLET Take one tablet Mon thru Sat,* ALENDRONATE 70 MG TABLET Take 70 mg by mouth one time * CALCIUM + D ORAL Take 1 tablet by mouth once d* ASCORBIC ACID (VITAMIN C) 1,0* Take 1,000 mg by mouth once d* MULTIVITAMIN ORAL Take 1 tablet by mouth once d* VITAMIN E 200 UNIT CAPSULE Take 200 Units by mouth once * OMEGA 3 FISH OIL ORAL Take 1 capsule by mouth once * VITAMIN B COMPLEX CAPSULE Take 1 capsule by mouth once * ACETAMINOPHEN 325 MG TABLET Take 650 mg by mouth as neede* OTC PRODUCT Kevon: as necessary DOCUSATE SODIUM 100 MG CAPSULE Take 1 capsule by mouth twice* Problem List As Of Date: 04/11/2020 (None) Other instructions from your clinician: If the anemia get worst on Slow FE, or you have stomach problems with Fosamx; then you need further evaluation ( Endoscopy ) and possible stoppoing Fosmax. Space Iron AND vitamins at less 4 hours form thyroid medicine and Foxamax Encounter Status:Closed by RUPAL HERNANDEZ MD on 04/12/20 Normal [facility] Ferritinon 04-11-2020 Ferritin [Mass/Vol] 79.4 ng/mL Normal 14.7-205.1 [facility] [place] Comment on above: Performed By: #### I JESSIE PEÑA #### [facility] [address] [place], [place] [address] HISTORY PHYSICALon 0 HISTORY PHYSICAL HNO ID: [id number] Author: Rupal Hernandez Service: ? Author Type: Physician Type: HANDP Filed: 04/12/2020 9:04 AM Note Text: Hematology and Medical Oncology PATIENT NAME: Niki Meyer. CLINIC NO: [id number]. ATTENDING PHYSICIAN: Rupal Hernandez MD. DATE OF SERVICE:04/11/2020. DIAGNOSIS: Anemia Consultation requested by Dr. Mensah for an opinion regarding anemia AND leukopenia. My final recommendations will be communicated back to the requesting physician by way of shared Medical record or letter to requesting physician via US mail. PERFORMANCE STATUS:100% HPI: A 65-year-old lady with history of osteoporosis and hypothyroidism. Patient has history of osteoporotic fracture and she was treated with alendronate. She is also on Synthroid for hypothyroidism and her recent evaluation of thyroid showed multiple benign thyroid nodules. She has no history of liver disease or chronic kidney disease. She was on Slow Fe for her anemia until 2 months ago when she complained of having problems with constipation. She has been on alendronate for over a year but it was stopped temporarily in January because of jaw pain which has resolved. She has no history of nausea, vomiting or epigastric tenderness. No history of fatigue, weight loss or frequent or recurrent infection. She has no fever, chills or night sweats. She had constipation problems on and off for the last several months. She had a screening colonoscopies 2 years ago and it was normal she is not taking aspirin or NSAIDs for her back pain. She denied history of tobacco or alcohol use. No family history of anemia, leukemia or bleeding disorder. She complained of one episode of severe headaches after taking alendronate several weeks ago. MEDICATIONS: Current Outpatient Medications Medication Sig - levothyroxine (SYNTHROID) 50 mcg tablet Take one tablet Sat thru Sat, skip Sat AND take two tablets on Saturday. - alendronate (FOSAMAX) 70 mg tablet Take 70 mg by mouth one time a week. In AM with cup of water on empty stomach. Nothing else by mouth and stay upright for 30 min. - calcium carbonate/vitamin D3 (CALCIUM + D ORAL) Take 1 tablet by mouth once daily. - Ascorbic Acid (VITAMIN C) 1,000 mg tablet Take 1,000 mg by mouth once daily. - MULTIVITAMIN ORAL Take 1 tablet by mouth once daily. - Vitamin E, dl, acetate, (VITAMIN E) 200 unit capsule Take 200 Units by mouth once daily. - omega-3 fatty acids/fish oil (OMEGA 3 FISH OIL ORAL) Take 1 capsule by mouth once daily. - vitamin b complex capsule Take 1 capsule by mouth once daily. - acetaminophen (TYLENOL) 325 mg tablet Take 650 mg by mouth as needed. - OTC PRODUCT Kevon: as necessary - docusate sodium (COLACE) 100 mg capsule Take 1 capsule by mouth twice daily. No current facility-administered medications for this visit. . ALLERGIES: ALLERGIES Allergen Reactions - Caffeine Other: See Comments Headaches - Monosodium Glutamate Other: See Comments Pain - Nasalcrom [Cromolyn] Rash - Sulfa (Sulfonamide * Other: See Comments Shaking . PAST MEDICAL HISTORY: PAST MEDICAL HISTORY Diagnosis Date - Hypothyroidism - Osteoporosis . PAST SURGICAL HISTORY: PAST SURGICAL HISTORY Procedure Laterality Date - BREAST BIOPSY Right - TONSILLECTOMY HX . FAMILY HISTORY: FAMILY HISTORY Problem Relation Age of Onset - Heart Father . SOCIAL HISTORY: Social History Tobacco Use - Smoking status: Never Smoker - Smokeless tobacco: Never Used Substance Use Topics - Alcohol use: Never Frequency: Never - Drug use: Never . REVIEW OF SYSTEMS: CONSTITUTIONAL: No fevers, chills, nightsweats, unintended weight loss HEENT: Denies frequent or severe heaches, nasal congestion/sinus symptoms, problematic allergy problems. EYES: No diplopia or blurry vision. CARDIOVASCULAR: No chest pain, dyspnea, palpitations, orthopnea, PND, ankle edema. PULM: No dyspnea, unexplained cough. GI: No dysphagia/odynophagia, problematic reflux, constipation, diarrhea, changes in stool habits, hematochezia, melena. : No new urinary complaints, including dysuria, gross hematuria or pyuria. NEURO: No new balance problems, peripheral weakness/paresthesias or numbness of concern. MUSC-SKEL: No new joint pain, swelling, or erythema. PSY: No concerns regarding depression, anxiety or panic. INTEGUMENTARY: No new skin changes (rash, new or changing mole, new growth) PHYSICAL EXAMINATION: 65-year-old well-nourished well-developed female in no distress BP 117/56 Pulse 71 Temp (Src) 98.6 (Temporal) Ht 5' .5 (1.54m) Wt 131 lb (59.4kg) BMI 25.15 kg/(m2). HEENT: Head is normocephalic, atraumatic. Sclerae white, conjunctivae pink. PEERL. EOMs are intact. Oropharynx is benign. No thrush or ulcers LYMPHATICS: There is no palpable adenopathy in the neck, supraclavicular region, axillae, or groin. LUNGS: Lungs are clear to percussion and auscultation. HEART: Heart is normal without murmurs, gallops, or rubs. ABDOMEN: Soft and nontender without organomegaly. No masses can be palpated. EXTREMITIES: Are without edema. NEUROLOGIC: Exam is physiologic LABORATORY DATA: Component Latest Ref Rng AND Units 04/11/2020 WBC 3.70 - 11.00 k/uL 4.59 RBC 3.90 - 5.20 m/uL 4.16 Hemoglobin 11.5 - 15.5 g/dL 11.4 (L) Hematocrit 36.0 - 46.0 % 36.0 MCV 80.0 - 100.0 fL 86.5 MCH 26.0 - 34.0 pG 27.4 MCHC 30.5 - 36.0 g/dL 31.7 RDW-CV 11.5 - 15.0 % 15.0 Platelet Count 150 - 400 k/uL 275 MPV 9.0 - 12.7 fL 10.5 Neut% % 49.0 Abs Neut (ANC) 1.45 - 7.50 k/uL 2.24 Lymph% % 31.4 Abs Lymph 1.00 - 4.00 k/uL 1.44 [place]% % 14.6 Abs [place] <0.87 k/uL 0.67 Eosin% % 4.1 Abs Eosin <0.46 k/uL 0.19 Baso% % 0.9 Abs Baso <0.11 k/uL 0.04 Nucleated Reds 0 /100 WBC 0.0 Absolute nRBC <0.01 k/uL <0.01 Diff Type Auto Diff Component Latest Ref Rng AND Units 04/11/2020 Retic % 0.4 - 2.0 % 1.0 Abs Retic 0.0180 - 0.1000 M/uL 0.043 Peripheral blood smear: Normal neutrophil counts, and platelet is adequate Component Latest Ref Rng AND Units 04/11/2020 Iron 41 - 186 ug/dL 29 (L) TIBC 232 - 386 ug/dL 319 Transferrin Saturation 15 - 57 % 9 (L) Ferritin 14.7 - 205.1 ng/mL 79.4 BUN 15, creatinine 0.87 vitamin D 25 WNL, vitamin B12 860, and folic acid 42 Serum protein electrophoresis shows no M proteins ASSESSMENT: 65-year-old female with mild anemia secondary to iron deficiency. No evidence of neutropenia. Despite mild leukopenia, she has no history of recurrent or frequent infection. PLAN: - Resume Slow Fe once daily for anemia. Start Colace 100mg twice daily along with her iron, and MiraLAX once daily as needed for constipation. - I also instructed patient to space her iron and multivitamin 4 hours after her thyroid medication or Fosamax. - If the anemia get worst on Slow FE, or if she develops stomach problems with Fosamx; then further evaluation ( Endoscopy ) and possible stoppoing Fosmax. - No further evaluation is needed for benign leukopenia I spent 45 minutes in the visit, with more than 50% of the total efgx-he-zlie time of the visit in counseling / coordination of care. Rupal Hernandez MD. ELECTRONICALLY SIGNED Normal [facility] Iron and TIBCon 04-11-2020 Iron [Mass/Vol] 29 ug/dL Low 41-186 [facility] Comment on above: Performed By: #### I CASEY FERR #### [facility] [address] [place], [place] [address] TIBC 319 ug/dL Normal 232-386 [facility] Comment on above: Performed By: #### I CASEY, FERR #### [facility] [address] [place], [place] [address] Transferrin Saturatn 9 % Low 15-57 [facility] Comment on above: Performed By: #### I JESSIE PEÑA #### [facility] [address] [place], [place] [address] Reticulocyteon 04-11-2020 Abs Retic 0.043 M/uL Normal 0.0180-0.100 0 [facility] Retic% 1.0 % Normal 0.4-2.0 [facility] CNPNon 03-21-2020 CNPN Telephone (HEMAWS) -- NIKI MEYER I ([id number]) 1955 F Date Time Provider Department 03/21/20 RUPAL HERNANDEZ During your visit today, we recorded the following information about you: Shaina Casillas 03/21/2020 10:48 AM Signed Received fax for new patient referral.gave to for review.spoke to patient on phone to verify registration info.patient states if doesn't think she needs to be seen that her family was being overboard about seeing hematology then she doesn't want to be seen. Ref by:marco mensah Reason for:neutropenia,anemia Insurance:medicare [employer] Self LPN, JAEL 03/21/2020 3:38 PM Signed Left message on [employer] at Dr. Mensah office. Repeat labs CBC with diff, iron tibc, ferratin level if abnormal contact our office , we will get scheduled. JAEL Hidalgo [facility] 03/23/2020 8:46 AM Signed Patient called in and expressed a great deal of anxiety over doing anything at all during this Covid 19 Pandemic. Patient stated that she also has severe needle phobia, and has to have her around whenever she has to have that done. She stated that she had a mental storm about this possible appointment last night and could not calm herself down. She said she also suffers from PTSD and speaks with a Psychiatrist that helps her with a lot. She stated that she doesn't even want to talk with Dr. Mnesah's office right now, and sounded a bit upset with how she has handled everything. Regarding her lab work, she said she felt like she was just a tad under some level on something of concern, and she thinks it is not an emergency to move forward at this time. I told her that her current concerns regarding Covid are very common with many patients and that if she feels comfortable, to wait a while until she does feel better and then call us to get back on track. She thought that would be a good plan. If she needs seen sooner than she is assuming for any reason, please contact her to let her know. Thank you, Pantera MART, RN, RN 03/23/2020 3:50 PM Signed Spoke with patient and she will call us when she is ready to set up an appointment. She is just not comfortable right now coming in to the office. Instructed to call and set up appointment when ready. Verbalizing understanding. Allergies As of Date: 03/21/2020 (Not on File) Date Reviewed: Never Reviewed Reason for Visit: future appt [Other] Problem List As Of Date: 03/21/2020 (None) Encounter Status:Closed by ELI MART on 03/23/20 Normal [facility] Vital Signs Date Time Vital Sign Value Performing Clinician Facility 08-03-2025 10:28040 Body height 152.[address] Marco Mensah DO Work Phone: [facility] 08-03-2025 10:28040 Body mass index (BMI) [Ratio] 23.8 kg/m2 Dr. Marco Mensah DO Work Phone: [facility] 08-03-2025 10:28040 Body weight 55.[address] Marco Mensah DO Work Phone: [facility] 08-03-2025 10:28-040 Diastolic blood pressure 61 mm[Hg] Dr. Marco Mensah DO Work Phone: [facility] 08-03-2025 10:28-040 Heart rate 85 /min Dr. Marco Mensah DO Work Phone: [facility] 08-03-2025 10:28-0400 SaO2% (BldA) [Mass fraction] 98 % Dr. Marco Mensah DO Work Phone: [facility] 08-03-2025 10:28-0400 Systolic blood pressure 127 mm[Hg] Dr. Marco Mensah DO Work Phone: [facility] 01-14-2025 14:02-0500 Body height 152.[address] Marco Mensah DO Work Phone: [facility] 08-30-2023 10:30-0400 Body height 152.[address] Marco Mensah Work Phone: [facility] 08-30-2023 10:30-0400 Body mass index (BMI) [Ratio] 25 kg/m2 Dr. Marco Mensah Work Phone: [facility] 08-30-2023 10:30-0400 Body temperature 97.6 [degF] Dr. Marco Mensah Work Phone: [facility] 08-30-2023 10:30-0400 Body weight 58.[address] Marco Mensah Work Phone: [facility] 08-30-2023 10:30-0400 Diastolic blood pressure 50 mm[Hg] Dr. Marco Mensah Work Phone: [facility] 08-30-2023 10:30-0400 Heart rate 83 /min Dr. Marco Mensah Work Phone: [facility] 08-30-2023 10:30-0400 Respiratory rate 16 /min Dr. Marco Mensah Work Phone: [facility] 08-30-2023 10:30-0400 Systolic blood pressure 121 mm[Hg] Dr. Marco Mensah Work Phone: [facility] 08-21-2023 09:29-0400 Diastolic Blood Pressure Non-Invasive 67 1 NAYAN AGARWAL DO [facility] 08-21-2023 09:29-0400 Heart rate 86 /min NAYAN ANY DO [facility] 08-21-2023 09:29-0400 Respiratory rate 19 /min NAYAN ANY DO [facility] 08-21-2023 09:29-0400 Systolic Blood Pressure Non-Invasive 119 1 NAYAN ANY DO [facility] 08-21-2023 09:19-0400 Diastolic Blood Pressure Non-Invasive 62 1 NAYAN ANY DO [facility] 08-21-2023 09:19-0400 Heart rate 73 /min NAYAN ANY DO [facility] 08-21-2023 09:19-0400 Respiratory rate 16 /min NAYAN ANY DO [facility] 08-21-2023 09:19-0400 Systolic Blood Pressure Non-Invasive 97 1 NAYAN ANY DO [facility] 08-21-2023 09:14-0400 Diastolic Blood Pressure Non-Invasive 57 1 NAYAN ANY DO [facility] 08-21-2023 09:14-0400 Heart rate 69 /min NAYAN ANY DO [facility] 08-21-2023 09:14-0400 Respiratory rate 12 /min NAYAN ANY DO [facility] 08-21-2023 09:14-0400 Systolic Blood Pressure Non-Invasive 90 1 NAYAN ANY DO [facility] 08-21-2023 09:04-0400 Body temperature 97.7 [degF] NAYAN ANY DO [facility] 08-21-2023 08:55-0400 Respiratory Rate - Anes 11 br/min NAYAN ANY DO [facility] 08-21-2023 08:50-0400 Respiratory Rate - Anes 12 br/min NAYAN ANY DO [facility] 08-21-2023 08:00-0400 Blood Pressure Location NAYAN ANY DO [facility] 08-21-2023 08:00-0400 Blood Pressure Method NAYAN ANY DO [facility] 08-21-2023 08:00-0400 Body height 151.2 cm NAYAN ANY DO [facility] 08-21-2023 08:00-0400 Body temperature 97.34 [degF] NAYAN ANY DO [facility] 08-21-2023 08:00-0400 Body weight 58.18 kg NAYAN ANY DO [facility] 08-21-2023 08:00-0400 Heart rate 90 /min NAYAN ANY DO [facility] 08-20-2023 09:57-0400 Body height 152.[address] Marco Mensah Work Phone: [facility] 08-20-2023 09:57-0400 Body mass index (BMI) [Ratio] 25 kg/m2 Dr. Marco Mensah Work Phone: [facility] 08-20-2023 09:57-0400 Body temperature 98.2 [degF] Dr. Marco Mensah Work Phone: [facility] 08-20-2023 09:57-0400 Body weight 58.[address] Marco Mensah Work Phone: [facility] 08-20-2023 09:57-0400 Diastolic blood pressure 70 mm[Hg] Dr. Marco Mensah Work Phone: [facility] 08-20-2023 09:57-0400 Heart rate 74 /min Dr. Marco Mensah Work Phone: [facility] 08-20-2023 09:57-0400 Respiratory rate 16 /min Dr. Marco Mensah Work Phone: [facility] 08-20-2023 09:57-0400 SaO2% (BldA) [Mass fraction] 97 % Dr. Marco Mensah Work Phone: [facility] 08-20-2023 09:57-0400 Systolic blood pressure 142 mm[Hg] Dr. Marco Mensah Work Phone: [facility] 08-27-2022 09:28-0400 Body height 154.[address] Marco Mensah Work Phone: [facility] Work Phone: 08-27-2022 09:28-0400 Body mass index (BMI) [Ratio] 26.6 kg/m2 Dr. Marco Mensah Work Phone: [facility] Work Phone: 08-27-2022 09:28-0400 Body temperature 96.4 [degF] Dr. Marco Mensah Work Phone: [facility] Work Phone: 08-27-2022 09:28-0400 Body weight 64.[address] Marco Mensah Work Phone: [facility] Work Phone: 08-27-2022 09:28-0400 Diastolic blood pressure 73 mm[Hg] Dr. Marco Mensah Work Phone: [facility] Work Phone: 08-27-2022 09:28-0400 Heart rate 101 /min Dr. Marco Mensah Work Phone: [facility] Work Phone: 08-27-2022 09:28-0400 Respiratory rate 18 /min Dr. Marco Mensah Work Phone: [facility] Work Phone: 08-27-2022 09:28-0400 SaO2% (BldA) [Mass fraction] 96 % Dr. Marco Mensah Work Phone: [facility] Work Phone: 08-27-2022 09:28-0400 Systolic blood pressure 120 mm[Hg] Dr. Marco Mensah Work Phone: [facility] Work Phone: 07-12-2022 08:31-0400 Body height 160.[address] Marco Mensah Work Phone: [facility] Work Phone: 07-12-2022 08:31-0400 Body mass index (BMI) [Ratio] 25 kg/m2 Dr. Marco Mensah Work Phone: [facility] Work Phone: 07-12-2022 08:31-0400 Body temperature 97.5 [degF] Dr. Marco Mensah Work Phone: [facility] Work Phone: 07-12-2022 08:31-0400 Body weight 63.[address] Marco Mensah Work Phone: [facility] Work Phone: 07-12-2022 08:31-0400 Diastolic blood pressure 71 mm[Hg] Dr. Marco eMnsah Work Phone: [facility] Work Phone: 07-12-2022 08:31-0400 Heart rate 86 /min Dr. Marco Mensah Work Phone: [facility] Work Phone: 07-12-2022 08:31-0400 Respiratory rate 16 /min Dr. Marco Mensah Work Phone: [facility] Work Phone: 07-12-2022 08:31-0400 SaO2% (BldA) [Mass fraction] 97 % Dr. Marco Mensah Work Phone: [facility] Work Phone: 07-12-2022 08:31-0400 Systolic blood pressure 122 mm[Hg] Dr. Marco Mensah Work Phone: [facility] Work Phone: Encounters Encounter Date Encounter Type Care Provider Facility Start: 08-14-2025 ambulatory Marco Mensah Facility:[facility] Start: 08-03-2025 End: 08-03-[address] Lincoln Hartley MD -[facility] Work Phone: Start: 08-03-2025 End: 08-03-[address] Marco Mensah DO Work Phone: [facility] Start: 05-26-2025 End: 05-26-[address] Marco Mensah DO Work Phone: -[facility] Start: 05-26-2025 End: 05-26-[address] Kirk Avalos MD -[facility] Work Phone: Start: 05-26-2025 End: 05-26-2025 ambulatory Marco Mensah Facility:[facility] Start: 04-20-2025 End: 04-20-[address] MARCO MENSAH DO Facility: Start: 04-20-2025 End: 04-20-[address] MARCO MENSAH DO [facility] Start: 04-14-2025 End: 04-14-[address] Marco Mensah DO Work Phone: [facility] Work Phone: Start: 04-14-2025 End: 04-14-[address] Kirk Avalos MD -[facility] [place] Work Phone: Start: 04-14-2025 End: 04-14-2025 ambulatory Kirk jolie Facility:[facility] Start: 02-01-2025 End: 02-01-[address] Lincoln Hartley MD -[facility] Work Phone: Start: 02-01-2025 End: 02-01-2025 ambulatory Marco Mensah Facility:[facility] Start: 01-27-2025 End: 01-27-[address] Marco Mensah DO Work Phone: [facility] Work Phone: Start: 01-27-2025 End: 01-27-[address] Kirk Avalos MD -[facility] Work Phone: Start: 01-27-2025 End: 01-27-2025 ambulatory Kirk Avalos Facility:[facility] Start: 01-15-2025 End: 01-15-[address] MARCO MENSAH DO Facility:[facility] Start: 01-15-2025 End: 01-15-[address] MARCO MENSAH DO [facility] Start: 01-11-2025 End: 01-11-[address] MARCO MENSAH DO Facility:[facility] Start: 01-11-2025 End: 01-11-[address] MARCO MENSAH DO [facility] Start: 01-06-2025 End: 01-06-[address] Kirk Avalos MD -Laboratory, [place] Work Phone: Start: 01-06-2025 End: 01-06-2025 ambulatory Krik Avalos Facility:[facility] Start: 12-23-2024 End: 12-23-[address] Kirk Avalos MD -Laboratory, [place] Work Phone: Start: 12-23-2024 End: 12-23-2024 ambulatory Kirk Avalos Facility:[facility] Start: 11-04-2024 End: 11-04-[address] Lincoln Hartley MD -Laboratory, [place] Start: 11-04-2024 End: 11-04-2024 ambulatory Lincoln Hartley Facility:[facility] Start: 10-19-2024 End: 10-19-[address] MARCO MENSAH DO Facility:[facility] Start: 10-19-2024 End: 10-19-[address] MARCO MENSAH DO [facility] Start: 10-05-2024 End: 10-05-[address] MARCO MENSAH DO Facility:[facility] Start: 10-05-2024 End: 10-05-[address] MARCO MENSAH DO [facility] Start: 10-01-2024 End: 10-01-[address] MARCO MENSAH DO Facility:[facility] Start: 10-01-2024 End: 10-01-[address] MARCO MENSAH DO [facility] Start: 09-30-2024 End: 09-30-[address] MARCO MENSAH DO Facility:[facility] Start: 09-30-2024 End: 09-30-[address] MARCO MENSAH DO [facility] Start: 11-04-2023 End: 11-05-[address] KIRK AVALOS MD Facility:[facility] Start: 11-04-2023 End: 11-04-[address] KIRK AVALOS MD [facility] Start: 10-07-2023 End: 10-07-[address] Marco Mensah Work Phone: [facility] Work Phone: Start: 10-07-2023 End: 10-07-[address] Marco Mensah Work Phone: [facility]-Ultrasound, [facility] Work Phone: Start: 08-30-2023 End: 08-30-[address] Marco Mensah Work Phone: [facility] Work Phone: Start: 08-30-2023 End: 08-30-[address] Marco Mensah Work Phone: [facility]-Medical Out Work Phone: Start: 08-21-2023 End: 08-21-2023 ambulatory NAYAN AGARWAL DO Facility:[facility] Start: 08-21-2023 End: 08-21-2023 Minor Procedure NAYAN AGARWAL DO [facility] Start: 08-20-2023 End: 08-20-[address] Marco Mensah Work Phone: [facility] Work Phone: Start: 08-20-2023 End: 08-20-[address] Marco Mensah Work Phone: [facility]-Radiology, [facility] Work Phone: Start: 08-20-2023 End: 08-20-[address] Marco Mensah Work Phone: [facility] Work Phone: Start: 08-16-2023 End: 08-17-[address] MARCO MENSAH DO Facility:[facility] Start: 08-16-2023 End: 08-16-[address] MARCO MENSAH DO [facility] Start: 08-01-2023 End: 08-02-[address] MARCO MENSAH DO Facility:[facility] Start: 03-15-2023 End: 03-16-[address] MARCO MENSAH DO Facility:[facility] Start: 03-14-2023 End: 03-15-[address] MARCO MENSAH DO Facility:[facility] Start: 03-14-2023 End: 03-14-[address] MARCO MENSAH DO [facility] Start: 03-05-2023 End: 03-06-[address] MARCO MENSAH DO Facility:[facility] Start: 03-05-2023 End: 03-05-[address] MARCO MENSAH DO [facility] Start: 02-08-2023 End: 05-02-[address] MARCO MENSAH DO Facility:[facility] Start: 02-05-2023 End: 02-10-[address] MARCO MENSAH DO Facility:[facility] Start: 02-05-2023 End: 02-09-[address] MARCO MENSAH DO [facility] Start: 08-27-2022 End: 08-27-[address] Marco Mensah Work Phone: [facility] Work Phone: Start: 08-27-2022 End: 08-27-[address] Marco Mensah Work Phone: [facility]-Laboratory, [place] Start: 08-27-2022 End: 08-27-[address] Marco Mensah Work Phone: [facility] Start: 07-12-2022 End: 07-12-[address] Marco Mensah Work Phone: [facility] Start: 07-09-2022 End: 07-09-[address] Marco Mensah Work Phone: [facility]-Ultrasound, [facility] Procedures Date Procedure Procedure Detail Performing Clinician Start: 01-27-2025 Computed tomography of abdomen and pelvis with contrast Dr. Marco Mensah DO Work Phone: Start: 12-23-2024 Hepatitis B surface antigen measurement Dr. Marco Mensah DO Work Phone: Start: 12-23-2024 In-vitro immunologic test Dr. Marco Mensah DO Work Phone: Comment on above: QuantiFERON-TB Gold Plus is a qualitativ e indirect test forM tuberculosis infection (including disease) and isintended for use in conjunction with risk assessment,radiography, and other medical and diagnostic evaluations.The QuantiFERON-TB Gold Plus result is determined bysubtracting the Nil value from either TB antigen (Ag)value. The Mitogen tube serves as a control for the test. No response to M tub erculosis antigens detected.Infection with M tuberculosis is unlikely, but high riskindividuals should be considered for additional testing(ATS/IDSA/CDC Clinical Practice Guidelines, 2017). Thereference range is an Antigen minus Nil result of <0.35IU/mL.The specimen received for QuantiFERON testing was incubatedby the ordering institution. Specific procedures outlinedin our Directory of Services and in the package insert forthe QuantiFERON Gold (In Tube) test must be followed toenable for proper stimulation of cells for the productionof interferon gamma. Chemiluminescence immunoassaymethodologyPerformed at: [facility] [id number] Director: Kirk Saldaña PhD, Phone: [phone] Start: 12-23-2024 Measurement of renal function Dr. Marco molina DO Work Phone: Comment on above: GFR Calc Start: 10-07-2023 US scan of thyroid Dr. Marco Mensah Work Phone: Start: 08-21-2023 Colonoscopy and biopsy of colon NAYAN Obrien DO Start: 08-20-2023 Radiography of thoracic spine Dr. Marco molina Work Phone: Start: 07-09-2022 US scan of thyroid Dr. Marco Mensah Work Phone: Start: 12-02-[address] MARCO MENSAH DO Plan of Treatment Date Care Activity Detail Author Comprehensive metabo lic 2000 panel - Serum or Plasma [facility] T4 free measurement [facility] Thyroid stimulating hormone measurement [facility] Thyroid stimulating hormone measurement [facility] US Thyroid gland [facility] Work Phone: Vitamin D, 25-hydroxy measurement [facility] Vitamin D, 25-hydroxy measurement [facility] Immunizations Immunization Date Immunization Notes Care Provider Fa [facility] 12-25-2024 tetanus toxoid, redu yanira diphtheria toxoid, and acellular pertussis vaccine, adsorbed DR MARCO MENSAH DO [facility] 12-25-[address] MARCO MENSAH DO [facility] 09-23-2024 Pneumococcal conjuga te PCV20, polysaccharide [id number] conjugate, adjuvant, PF; Translations: [Prevnar 20] DR MARCO MENSAH DO [facility] 02-23-2021 Covid (Pfizer) Dr. Marco Raygoza r Work Phone: [facility] 02-02-2021 Covid (Pfizer) Dr. Marco Raygoza r Work Phone: [facility] Comment on above: Result Comment: 2022: [id number] 02-25-2015 tetanus toxoid, redu yanira diphtheria toxoid, and acellular pertussis vaccine, adsorbed DR MARCO MENSAH DO [facility] 12-02-2014 diphtheria and tetan us toxoids, adsorbed for pediatric use DR MARCO MENSAH DO [facility] 10-31-2014 diphtheria and tetan us toxoids, adsorbed for pediatric use DR MARCO MENSAH DO [facility] Payers Date Payer Category Payer Self-pay [id number] 2024 Unknown [id number] 2023 Medicare [id number] [id number] Private Health Insurance [id number] 2019 Medicare [id number] 2019 Private Health Insurance [id number] 1955 Unknown [id number] 2.16.8 40.1.378095.3.579.2.7 1955 Unknown [id number] 2.16.8 40.1.852917.3.579.2. 1955 Unknown [id number] 2.16.8 40.1.334806.3.579.2. 1955 Unknown [id number] 2.16.8 40.1.588840.3.579.2. 1954 Unknown [id number] 2.16.8 40.1.899244.3.579.2.7 1954 Unknown [id number] 2.16.8 40.1.125748.3.579.2 1954 Unknown [id number] 2.16.8 40.1.964888.3.579.2.627 1954 Unknown [id number] 2.16.8 40.1.487086.3.579.2.627 1954 Unknown [id number] 2.16.8 40.1.057026.3.579.2.627 1954 Unknown [id number] 2.16.8 40.1.384064.3.579.2.627 1954 Unknown [id number] 2.16.8 40.1.458763.3.579.2.627 1954 Unknown [id number] 2.16.8 40.1.431730.3.579.2.627 1954 Unknown [id number] 2.16.8 40.1.784166.3.579.2.627 1954 Unknown [id number] 2.16.8 40.1.573696.3.579.2.627 1954 Unknown [id number] 2.16.8 40.1.115614.3.579.2.627 1954 Unknown [id number] 2.16.8 40.1.123930.3.579.2.627 Unknown [id number] 2.16.8 40.1.178145.3.579.2.462 Unknown [id number] 2.16.8 40.1.549963.3.579.2.462 Unknown [id number] 2.16.8 40.1.874321.3.579.2.462 Unknown [id number] 2.16.8 40.1.261993.3.579.2.462 Unknown [id number] 2.16.8 40.1.940355.3.579.2.462 Unknown [id number] 2.16.8 40.1.552482.3.579.2.462 Unknown [id number] 2.16.8 40.1.825239.3.579.2.462 Unknown [id number] 2.16.8 40.1.032154.3.579.2.462 Unknown [id number] 2.16.8 40.1.471965.3.579.2.462 Social History Date Type Detail Facility Start: 07-12-2022 End: 08-20-2023 Tobacco smoking status NHIS Unknown if ever smoked [facility] Start: 1955 Sex Assigned At Female [facility] Start: 12-11-2019 End: 01-14-2025 Tobacco smoking status Never smoked tobacco (finding) [facility] Sex Assigned At [facility] Start: 02-11-2025 Sex Female (finding) [facility] Functional Status Date Assessment Result Facility 08-21-2023 Functional Status Awake, Up ad sharon [facility] 08-21-2023 Functional Status Maintained [facility] Mental Status Date Assessment Result Facility 08-30-2023 Cognitive function Awake;Alert;A ppropriate;Fol lows Commands [facility] Work Phone: 08-21-2023 Mental Status Oriented x 4 [facility] Clinical Notes 02-08-2023 to 02-01-2025 Note Date & Type Note Facility 02-01-2025 Evaluation note Diagnosis Onset Date Resolution Osteoporosis chronic February 01, 025 10:00am [facility] Work Phone: [phone]) 710-584502-26-2025 Radiology Diagnostic study note [facility] [address] [place] [address] Abdomen/Pelvis WITH Contrast MR#: [id number] Acct: [id number] Name: NIKI MEYER Rep #: [id number] : [id number] F 70 From: Jordon Boyd MD PCP: Dr. Marco Mensah, DO Status: REG CLI Study:Abdomen/Pelvis WITH Contrast Date of Ex am: 01/27/25 Exam# [id number] Ordering Dr: Kat Avalos MD PROCEDURE: ABDOMEN/PELVIS WITH CONTRAST REASON FOR EXAM: Crohn's disease. Enterography. No acute symptoms at this time. TECHNIQUE: Abdomen and pelvis CT with intravenous contrast. Oral contrast was also used. IV CONTRAST: 100 cc of Isovue-300 was injected intravenously. COMPARISON: None. FINDINGS: Lung bases: Clear Liver: There is a 1.3 cm x 1.7 cm cyst in the anterior aspect of the right lobe of the liver. Subcentimeter cyst in the inferior aspect of the left lobe of the liver. Gallbladder: Unremarkable. Spleen: Unremarkable. Pancreas: Unremarkable. Adrenals: Unremarkable. Kidneys: Unremarkable. Bladder: Unremarkable. Reproductive Organs: Unremarkable. Bowel: Unremarkable.. Large hiatal hernia. Appendix: Normal. Lymph nodes: No suspicious lymph node enlargement. Vasculature: Major vascular structures are unremarkable. Peritoneum / Retroperitoneum: No ascites. No free air. Bones: Demineralization of the lumbar vertebrae. 50% loss of height of the T12 vertebrae. Loss of height of the superior endplates of the L3-L4 and L5 vertebrae. CT/Abdomen/Pelvis WITH Contrast IMPRESSION: Small hepatic cysts. Large hiatal hernia. One or more dose reduction techniques were used (e.g., Automated exposure control, adjustment of the mA and/or kV according to patient size, use of iterative reconstruction technique). Reading Location: [id number] CC: Dr. Marco Mensah DO; Dr. Kirk Avalos MD ~ Information Support Project Manager: Signed [facility]02-10-2025 Note* Exam Date Time Procedure Performing Provider Status 01/11/25 10:[address] Soft Tissue Neck w/ Contrast TESFAYE RIVERA MD; Auth (Verified) [id number] ORIGINAL EXAMINATION: CT OF THE NECK SOFT TISSUE WITH CONTRAST 01/11/2025 TECHNIQUE: CT of the neck was performed with the administration of intravenous contrast. Multiplanar reformatted images are provided for review. Automated exposure control, iterative reconstruction, and/or weight based adjustment of the mA/kV was utilized to reduce the radiation dose to as low as reasonably achievable. COMPARISON: Thyroid sonogram 02/04/2020. HISTORY: ORDERING SYSTEM PROVIDED HISTORY: Reason for Exam: right lower anterior paratracheal neck mass FINDINGS: PHARYNX/LARYNX: The tonsillar pillars are normal in appearance. The tongue is normal in appearance. The valleculae, epiglottis, aryepiglottic folds and pyriform sinuses appear unremarkable. The true and false vocal cords are normal in appearance. No mass or abscess is seen. SALIVARY GLANDS/THYROID: The parotid and submandibular glands appear unremarkable. The left the thyroid gland is enlarged compared to the right. There are nodular densities in the left thyroid gland up to 1.3 cm.. LYMPH NODES: No cervical or supraclavicular lymphadenopathy is seen. SOFT TISSUES: No appreciable soft tissue swelling or mass is seen. BRAIN/ORBITS/SINUSES: The visualized portion of the intracranial contents appear unremarkable. The visualized portion of the orbits, paranasal sinuses and mastoid air cells demonstrate no acute abnormality. LUNG APICES/SUPERIOR MEDIASTINUM: No focal consolidation is seen within the visualized lung apices. No superior mediastinal lymphadenopathy or mass. The visualized portion of the trachea appears unremarkable. BONES: No aggressive appearing lytic or blastic bony lesion. IMPRESSION: 1. No acute finding. 2. Left thyroid nodules. Suggest correlation with sonography. Interpreted by: Tesfaye Rivera Preliminary Report By: Tesfaye Rivera Electronically signed By Tesfaye Rivera Dictated Date: 01/11/2025 10:46:22 AM Prelim Date: 01/11/2025 10:52:01 AM Sign Date: 01/11/2025 10:52:01 AM Ordering Provider: MARCO [facility]09-20-2023 Evaluation + Plan noteExtracted from: Title:Clinical Document Author:NAYAN AGARWAL ate:08/21/23 [place] ADMISSION HISTORY AN D PHYSICIAL CHIEF COMPLAINT: Colorectal cancer screening HISTORY OF PRESENT ILLNESS: Colorectal cancer screening, last colonoscopy 7 years ago REVIEW OF SYSTEMS: Constitutional: denies weight loss Cardiovascular:denies chest pain, palpitations Respiratory:denies shortness of breath Gastrointestinal:no abd pain Musculoskeletal: no arthralgias Skin: no rashes . 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) Hematochezia (1472394660) Hemorrhoid (750103250) Hiatal hernia (090137603) History of amebiasis (836126785) History of mononucleosis (9151348029) Hyperlipidemia (23314785) Hyperlipidemia, mild (83345534) Infection of spine (881553229) Iron deficiency anemia (627098436) Leg cramp (8316945982) Leukopenia (207139855) Loss of height (792952885) Low back pain (905672208) Mammogram declined (0337047207) Mass of right side of neck (574005264) Mid back pain (296308495) Mild tricuspid regurgitation (6359922596) Mixed urge and stress incontinence (96846494) Multiple thyroid nodules (878932708) Normocytic anemia (192909979) Orthostatic hypotension (48353374) Osteoporosis (641399168) Pain in lower jaw (932875577) Peripheral edema (937212301) Rectal bleeding (557270979) Renal cyst, right (1515667751) Schmorl's nodes of lumbar region (88896507) Schmorl's nodes-lumbar region (15600432) Short-term memory loss (539776007) Systolic ejection murmur (283225220) T12 compression fracture (2004729034) Urinary incontinence, mixed (1415617091) MEDICATIONS: Active Inpt Meds: None Active PRN Meds: None One Time Meds: None Active IV Meds: None ALLERGIES: (9) Chocolate Hayfever MSG caffeine GoLYTELY Nasalcrom Peanut butter Peanuts sulfa FAMILY HISTORY: SOCIAL HISTORY: PHYSICAL EXAM: VITALS: No Data Available 24 Hr Tmax: No Data Available 36 Hr Tmax: No Data Available Vital Signs are the last 5 in the past 48 hours. Weights display the last 5 within 7 days. Initial Wt: No Data Available Current Wt: No Data Available physical exam alert and oriented cardio; regular without murmur pulm; clear abd; soft, nontender LABS: No 36hr Lab Data DIAGNOSTICS: IMPRESSION: Colorectal cancer screening PLAN: Proceed with colonoscopy as discussed in the office [facility] 09-20-2023 Hospital Discharge instructions Patient Education 08/21/2023 09:09:24 Moderate Conscious Sedation, Adult, Care After Moderate Conscious Sedation, Adult, Care After These instructions provide you with information about caring for yourself after your procedure. Your health care provider may also give you more specific instructions. Your treatment has been plannedaccording to current medical practices, but problems sometimes occur. Call your health care provider if you have any problems or questions after your procedure. What can I expect after the procedure? After your procedure, it is common: To feel sleepy for several hours. To feel clumsy and have poor balance for several hours. To have poor judgment for several hours. To vomit if you eat too soon. Follow these instructions at home: For at least 24 hours after the procedure: Do not: ?Participate in activities where you could fall or become injured. ?Drive. ?Use heavy machinery. ?Drink alcohol. ?Take sleeping pills or medicines that cause drowsiness. ?Make important decisions or sign legal documents. ?Take care of children on your own. Rest. Eating and drinking Follow the diet recommended by your health care provider. If you vomit: ?Drink water, juice, or soup when you can drink without vomiting. ?Make sure you have little or no nausea before eating solid foods. General instructions Have a responsible adult stay with you until you are awake and alert. Take kzbz-ryc-semrcvq and prescription medicines only as told by your health care provider. If you smoke, do not smoke without supervision. Keep all follow-up visits as told by your health care provider. This is important. Contact a health care provider if: You keep feeling nauseous or you keep vomiting. You feel light-headed. You develop a rash. You have a fever. Get help right away if: You have trouble breathing. This information is not intended to replace advice given to you by your health care provider. Make sure you discuss any questions you have with your health care provider. Document Released: 09/08/2014 Document Revised: 10/31/2018 Document Reviewed: 03/09/2017 [employer] Patient Education 2020 [employer]. 08/21/2023 09:09:17 Nausea and Vomiting, Adult Nausea and Vomiting, Adult Nausea is the feeling that you have an upset stomach or that you are about to vomit. Vomiting is when stomach contents are thrown up and out of the mouth as a result of nausea. Vomiting can make you feel weak and cause you to become dehydrated. Dehydration can make you feel tired and thirsty, cause you to have a dry mouth, and decrease how often you urinate. Older adults and people with other diseases or a weak disease-fighting system (immune system) are at higher risk for dehydration. It is important to treat your nausea and vomiting as told by your health care provider. Follow these instructions at home: Watch your symptoms for any changes. Tell your health care provider about them. Follow these instructions to care for yourself at home. Eating and drinking Take an oral rehydration solution (ORS). This is a drink that is sold at pharmacies and retail stores. Drink clear fluids slowly and in small amounts as you are able. Clear fluids include water, ice chips, low-calorie sports drinks, and fruit juice that has water added (diluted fruit juice). Eat bland, qnqn-sr-nyawsu foods in small amounts as you are able. These foods include bananas, applesauce, rice, lean meats, toast, and crackers. Avoid fluids that contain a lot of sugar or caffeine, such as energy drinks, sports drinks, and soda. Avoid alcohol. Avoid spicy or fatty foods. General instructions Take ewao-juy-uwiluxc and prescription medicines only as told by your health care provider. Drink enough fluid to keep your urine pale yellow. Wash your hands often using soap and water. If soap and water are not available, use hand bed laster. Make sure that all people in your household wash their hands well and often. Rest at home while you recover. Watch your condition for any changes. Breathe slowly and deeply when you feel nauseated. Keep all follow-up visits as told by your health care provider. This is important. Contact a health care provider if: Your symptoms get worse. You have new symptoms. You have a fever. You cannot drink fluids without vomiting. Your nausea does not go away after 2 days. You feel light-headed or dizzy. You have a headache. You have muscle cramps. You have a rash. You have pain while urinating. Get help right away if: You have pain in your chest, neck, arm, or jaw. You feel extremely weak or you faint. You have persistent vomiting. You have vomit that is bright red or looks like black coffee grounds. You have bloody or black stools or stools that look like tar. You have a severe headache, a stiff neck, or both. You have severe pain, cramping, or bloating in your abdomen. You have difficulty breathing, or you are breathing very quickly. Your heart is beating very quickly. Your skin feels cold and clammy. You feel confused. You have signs of dehydration, such as: ?Dark urine, very little urine, or no urine. ?Cracked lips. ?Dry mouth. ?Sunken eyes. ?Sleepiness. ?Weakness. These symptoms may represent a serious problem that is an emergency. Do not wait to see if the symptoms will go away. Get medical help right away. Call your local emergency services (911 in the [place] Do not drive yourself to the hospital. Summary Nausea is the feeling that you have an upset stomach or that you are about to vomit. As nausea getsworse, it can lead to vomiting. Vomiting can make you feel weak and cause you to become dehydrated. Follow instructions from your health care provider about eating and drinking to prevent dehydration. Take qqwr-rlj-ojkszds and prescription medicines only as told by your health care provider. Contact your health care provider if your symptoms get worse, or you have new symptoms. Keep all follow-up visits as told by your health care provider. This is important. This information is not intended to replace advice given to you by your health care provider. Make sure you discuss any questions you have with your health care provider. Document Released: 11/18/2006 Document Revised: 03/11/2020 Document Reviewed: 04/28/2019 [employer] Patient Education 2020 [employer]. 08/21/2023 09:09:12 Colonoscopy, Adult, Care After Colonoscopy, Adult, Care After This sheet gives you information about how to care for yourself after your procedure. Your health care provider may also give you more specific instructions. If you have problems or questions, contact your health care provider. What can I expect after the procedure? After the procedure, it is common to have: A small amount of blood in your stool for 24 hours after the procedure. Some gas. Mild abdominal cramping or bloating. Follow these instructions at home: General instructions For the first 24 hours after the procedure: ?Do not drive or use machinery. ?Do not sign important documents. ?Do not drink alcohol. ?Do your regular daily activities at a slower pace than normal. ?Eat soft, lgnd-jo-ebfkwc foods. Take vxaj-lrx-shigqpr or prescription medicines only as told by your health care provider. Relieving cramping and bloating Try walking around when you have cramps or feel bloated. Apply heat to your abdomen as told by your health care provider. Use a heat source that your healthcare provider recommends, such as a moist heat pack or a heating pad. ?Place a towel between your skin and the heat source. ?Leave the heat on for 20 30 minutes. ?Remove the heat if your skin turns bright red. This is especially important if you are unable to feel pain, heat, or cold. You may have a greater risk of getting burned. Eating and drinking Drink enough fluid to keep your urine pale yellow. Resume your normal diet as instructed by your health care provider. Avoid heavy or fried foods thatare hard to digest. Avoid drinking alcohol for as long as instructed by your health care provider. Contact a health care provider if: You have blood in your stool 2 3 days after the procedure. Get help right away if: You have more than a small spotting of blood in your stool. You pass large blood clots in your stool. Your abdomen is swollen. You have nausea or vomiting. You have a fever. You have increasing abdominal pain that is not relieved with medicine. Summary After the procedure, it is common to have a small amount of blood in your stool. You may also have mild abdominal cramping and bloating. For the first 24 hours after the procedure, do not drive or use machinery, sign important documents, or drink alcohol. Contact your health care provider if you have a lot of blood in your stool, nausea or vomiting, a fever, or increased abdominal pain. This information is not intended to replace advice given to you by your health care provider. Make sure you discuss any questions you have with your health care provider. Document Released: 07/02/2005 Document Revised: 09/10/2018 Document Reviewed: 01/29/2017 [employer] Patient Education 2020 [employer]. Follow Up Care 08/14/2023 12:51:17 With:NAYAN AGARWLA DO, Clinical Gastroenterology Address: [address] [place] [phone] When: Unknown Comments:FOLLOW UP WITH PRIMARY CARE FOR REFERRAL. NEXT COLONOSCOPY IN 3-5 YEARS. With:MARCO MENSAH DO Address: [address] [place] [phone] When: Unknown Comments:Patient was scheduled for a screening colonoscopy however upon my interview, the patient had been experiencing symptoms which should have been a diagnostic procedure. She will need GI follow-up basedon the endoscopic findings Follow-up as needed [facility] 09-20-2023 Note Discharge Instructions Thank you for allowing [facility] to assist you with your healthcare needs. The following is importantdischarge information regarding your hospital visit. Your Care Team MARCO MENSAH DO What to do next Instructions From Your Doctor Follow-up with primary care physician in 1 to 2 weeks and will need further GI follow-up Repeat colonoscopy in 3 years if not sooner based on response to treatment and biopsy results Follow Up Appointments Follow Up with NAYAN AGARWAL DO, Clinical Gastroenterology When Why: FOLLOW UP WITH PRIMARY CARE FOR REFERRAL. NEXT COLONOSCOPY IN 3-5 YEARS. Where: [address] [place] [phone] Follow Up with MARCO MENSAH DO When Why: Patient was scheduled for a screening colonoscopy however upon my interview, the patient had been experiencing symptoms which should have been a diagnostic procedure. She will need GI follow-up based on the endoscopic findings Follow-up as needed Where: [address] [place] [phone] The Following Activity and Diet Have Been Ordered for You Discharge Activity - Ordered -- Driving Restricted, No driving until tomorrow, 08/21/23 7:53:00 EDT Discharge Return to Work, School, or Sports (Discharge Return to status) - Ordered -- May return to: work, 08/21/23 7:53:00 EDT Discharge Diet - Ordered -- Type of Diet: Regular Diet, 08/21/23 7:53:00 EDT Medications Please ask your primary doctor or pharmacist before taking any other medication not listed, including over the counter drugs, herbal medications, vitamins and or supplements as they may interact withyour home medications. What How Much When Why Instructions Last Dose Unchanged acetaminophen (acetaminophen 325 mg oral capsule) 2 cap by mouth Every 4 hours as needed for as needed for pain Unchanged acetaminophen (Tylenol) 325 Milligram by mouth Two (2) times a day as needed for as needed for pain Unchanged alendronate (alendronate 70 mg oral tablet) 1 tab(s) by mouth Every week Duration: 84 Days Unchanged calcium carbonate (calcium carbonate 1000 mg oral tablet, chewable) 1 tab(s) Chewed Once a day Unchanged cetirizine (cetirizine 10 mg oral capsule) 1 cap by mouth Once a day as needed for as needed for allergy symptoms Unchanged chromium picolinate (chromium picolinate 200 mcg oral capsule) 1 cap by mouth Once a day Unchanged diclofenac topical (diclofenac 1% topical gel) 1 application Topical Four (4) times a day Unchanged DME (DME MISCellaneous) See instructions Urinary incontinence, mixed Incontinence pads and supplies, Dx: N39.46 Unchanged ferrous sulfate (Slow Fe (as elemental iron) 45 mg oral tablet, extended release) 1 tab(s) by mouth Once a day Unchanged kevon (Kevon Root) one as needed Unchanged levothyroxine (levothyroxine 50 mcg (0.05 mg) oral tablet) 1 tab(s) by mouth Once a day One daily sat-sat, none on Saturday, 2 tablets on Saturday Unchanged meloxicam (meloxicam 15 mg oral tablet) 1 tab(s) by mouth Once a day with a meal as needed for Pain Duration: 90 Days Take with food/ milk. Do not take any other NSAIDs while on this med. Unchanged multivitamin (Multivitamin) 1 tab(s) by mouth Every day Unchanged multivitamin (Vitamin B Complex 100) one daily Unchanged nystatin topical (nystatin 100,000 units/ g topical cream) ues 1 APPLICATORFUL Topical TWICE DAILY for 30 days as needed for Rash,Apply to the affected area twice daily until healing complete.] Unchanged nystatin topical (nystatin 100,000 units/ g topical cream) 1 application Topical Two (2) times a day as needed for Rash Duration: 30 Days Apply to the affected area twice daily until healing complete. Unchanged nystatin topical (nystatin 100,000 units/ g topical powder) 1 application Topical Two (2) times a day as needed for Rash Duration: 30 Days Unchanged omega-3 polyunsaturated fatty acids (Fish Oil 1000 mg oral capsule) 1 cap by mouth Once a day Unchanged simethicone (simethicone 80 mg oral tablet, chewable) See instructions 1 tab(s) Chewed BID- QID prn per endo records Unchanged vitamin E (vitamin E 200 intl units oral capsule) 1 cap by mouth Every day Please take this list to your next doctor s visit. Bring all medications you take, including over the counter medications, herbals and other supplements with you to your doctor s visit. Patients and families are reminded to discard old lists and to update any records with all medication providers or retail pharmacies. Education Materials Moderate Conscious Sedation, Adult, Care After These instructions provide you with information about caring for yourself after your procedure. Your health care provider may also give you more specific instructions. Your treatment has been plannedaccording to current medical practices, but problems sometimes occur. Call your health care provider if you have any problems or questions after your procedure. What can I expect after the procedure? After your procedure, it is common: To feel sleepy for several hours. To feel clumsy and have poor balance for several hours. To have poor judgment for several hours. To vomit if you eat too soon. Follow these instructions at home: For at least 24 hours after the procedure: Do not: ? Participate in activities where you could fall or become injured. ? Drive. ? Use heavy machinery. ? Drink alcohol. ? Take sleeping pills or medicines that cause drowsiness. ? Make important decisions or sign legal documents. ? Take care of children on your own. Rest. Eating and drinking Follow the diet recommended by your health care provider. If you vomit: ? Drink water, juice, or soup when you can drink without vomiting. ? Make sure you have little or no nausea before eating solid foods. General instructions Have a responsible adult stay with you until you are awake and alert. Take cgwo-fxo-esjkpzi and prescription medicines only as told by your health care provider. If you smoke, do not smoke without supervision. Keep all follow-up visits as told by your health care provider. This is important. Contact a health care provider if: You keep feeling nauseous or you keep vomiting. You feel light-headed. You develop a rash. You have a fever. Get help right away if: You have trouble breathing. This information is not intended to replace advice given to you by your health care provider. Make sure you discuss any questions you have with your health care provider. Document Released: 09/08/2014 Document Revised: 10/31/2018 Document Reviewed: 03/09/2017 [employer] Patient Education 2020 [employer]. Nausea and Vomiting, Adult Nausea is the feeling that you have an upset stomach or that you are about to vomit. Vomiting is when stomach contents are thrown up and out of the mouth as a result of nausea. Vomiting can make you feel weak and cause you to become dehydrated. Dehydration can make you feel tired and thirsty, cause you to have a dry mouth, and decrease how often you urinate. Older adults and people with other diseases or a weak disease-fighting system (immune system) are at higher risk for dehydration. It is important to treat your nausea and vomiting as told by your health care provider. Follow these instructions at home: Watch your symptoms for any changes. Tell your health care provider about them. Follow these instructions to care for yourself at home. Eating and drinking Take an oral rehydration solution (ORS). This is a drink that is sold at pharmacies and retail stores. Drink clear fluids slowly and in small amounts as you are able. Clear fluids include water, ice chips, low-calorie sports drinks, and fruit juice that has water added (diluted fruit juice). Eat bland, pjzg-ao-fnsvke foods in small amounts as you are able. These foods include bananas, applesauce, rice, lean meats, toast, and crackers. Avoid fluids that contain a lot of sugar or caffeine, such as energy drinks, sports drinks, and soda. Avoid alcohol. Avoid spicy or fatty foods. General instructions Take mcuq-hyl-lmkwxly and prescription medicines only as told by your health care provider. Drink enough fluid to keep your urine pale yellow. Wash your hands often using soap and water. If soap and water are not available, use hand bed laster. Make sure that all people in your household wash their hands well and often. Rest at home while you recover. Watch your condition for any changes. Breathe slowly and deeply when you feel nauseated. Keep all follow-up visits as told by your health care provider. This is important. Contact a health care provider if: Your symptoms get worse. You have new symptoms. You have a fever. You cannot drink fluids without vomiting. Your nausea does not go away after 2 days. You feel light-headed or dizzy. You have a headache. You have muscle cramps. You have a rash. You have pain while urinating. Get help right away if: You have pain in your chest, neck, arm, or jaw. You feel extremely weak or you faint. You have persistent vomiting. You have vomit that is bright red or looks like black coffee grounds. You have bloody or black stools or stools that look like tar. You have a severe headache, a stiff neck, or both. You have severe pain, cramping, or bloating in your abdomen. You have difficulty breathing, or you are breathing very quickly. Your heart is beating very quickly. Your skin feels cold and clammy. You feel confused. You have signs of dehydration, such as: ? Dark urine, very little urine, or no urine. ? Cracked lips. ? Dry mouth. ? Sunken eyes. ? Sleepiness. ? Weakness. These symptoms may represent a serious problem that is an emergency. Do not wait to see if the symptoms will go away. Get medical help right away. Call your local emergency services (911 in the [place] Do not drive yourself to the hospital. Summary Nausea is the feeling that you have an upset stomach or that you are about to vomit. As nausea getsworse, it can lead to vomiting. Vomiting can make you feel weak and cause you to become dehydrated. Follow instructions from your health care provider about eating and drinking to prevent dehydration. Take lqqn-qtp-zfnnird and prescription medicines only as told by your health care provider. Contact your health care provider if your symptoms get worse, or you have new symptoms. Keep all follow-up visits as told by your health care provider. This is important. This information is not intended to replace advice given to you by your health care provider. Make sure you discuss any questions you have with your health care provider. Document Released: 11/18/2006 Document Revised: 03/11/2020 Document Reviewed: 04/28/2019 [employer] Patient Education 2020 [employer]. Colonoscopy, Adult, Care After This sheet gives you information about how to care for yourself after your procedure. Your health care provider may also give you more specific instructions. If you have problems or questions, contact your health care provider. What can I expect after the procedure? After the procedure, it is common to have: A small amount of blood in your stool for 24 hours after the procedure. Some gas. Mild abdominal cramping or bloating. Follow these instructions at home: General instructions For the first 24 hours after the procedure: ? Do not drive or use machinery. ? Do not sign important documents. ? Do not drink alcohol. ? Do your regular daily activities at a slower pace than normal. ? Eat soft, fafy-tm-fyxxqe foods. Take lhiz-agv-vvujygk or prescription medicines only as told by your health care provider. Relieving cramping and bloating Try walking around when you have cramps or feel bloated. Apply heat to your abdomen as told by your health care provider. Use a heat source that your healthcare provider recommends, such as a moist heat pack or a heating pad. ? Place a towel between your skin and the heat source. ? Leave the heat on for 20 30 minutes. ? Remove the heat if your skin turns bright red. This is especially important if you are unable to feel pain, heat, or cold. You may have a greater risk of getting burned. Eating and drinking Drink enough fluid to keep your urine pale yellow. Resume your normal diet as instructed by your health care provider. Avoid heavy or fried foods thatare hard to digest. Avoid drinking alcohol for as long as instructed by your health care provider. Contact a health care provider if: You have blood in your stool 2 3 days after the procedure. Get help right away if: You have more than a small spotting of blood in your stool. You pass large blood clots in your stool. Your abdomen is swollen. You have nausea or vomiting. You have a fever. You have increasing abdominal pain that is not relieved with medicine. Summary After the procedure, it is common to have a small amount of blood in your stool. You may also have mild abdominal cramping and bloating. For the first 24 hours after the procedure, do not drive or use machinery, sign important documents, or drink alcohol. Contact your health care provider if you have a lot of blood in your stool, nausea or vomiting, a fever, or increased abdominal pain. This information is not intended to replace advice given to you by your health care provider. Make sure you discuss any questions you have with your health care provider. Document Released: 07/02/2005 Document Revised: 09/10/2018 Document Reviewed: 01/29/2017 [employer] Patient Education 2020 [employer]. Additional Information VACCINATE! IT SAVES LIVES! Members of the community who have not yet received the COVID-19 vaccine and would like to receive it can visit one of [facility] vaccine clinics. There are many vaccine clinic locations within the [facility]. For locations and available times, please visit [email or web address] It is important to note that some COVID mobile vaccine clinics are held outdoors and may be canceled in rainy or stormy conditions. To learn more about pediatric vaccinations (ages 5-11), we invite you to visit the [facility] webpage. [email or web address]/[email or web address] learn more about the COVID-19 vaccine, we invite you to visit the CDC website for a list of frequently asked questions.https://www.cdc.gov/coronavirus/2019-ncov/vaccines/faq.html [facility] Patient Portal Access Instructions: Stay connected with your healthcare team and access your personal medical information anytime with the [facility] Patient Portal. Please follow the directions below to create your [employer] account: 1.Access the email account you provided upon registration to the hospital/physician office.2.Look for an invitation email from [facility].3.Open the email and access the invitation link: AcceptInvitation to [facility] [employer].4.Fill in the required lai to create your account. To access your account, visit [email or web address]. Click the blue button labeled Access Patient Portal and then log in with the username and password that you created in the steps above. You will be able to view your test results, lab results, a summary of your visits, upcoming appointments and more. There is also a convenient messaging option where you can send secure messages to your p rovider. In addition, you will have the ability to download any documents or summaries to your computer and/or send the information securely to a physician. Remember that your healthcare information is confidential, so carefully consider who you will allowto register on the [facility] Patient Portal for access to your information. You can also access the [facility] Patient Portal on the [facility] amandeep. Simply click on Patient Portal and then log into your account. If you would like to receive a full copy of your medical records, please contact the [facility] Medical Records Department by calling [phone], Saturday through Saturday between 8 a.m. and 4:30 p.m. HOW TO SAFELY DISPOSE OF PRESCRIPTION MEDICATIONS Please use one of the following methods to safely dispose of your unused medications. 1.Use a drug disposal kit: the drug disposal pouch allows you to safely discard your old and unuseddrugs. Ask your nurse to give you one when you are discharged.2.Visit a local take-back location: Many local pharmacies and police departments have programs that collect old and unwanted prescriptiondrugs. Call your local pharmacy or go to http://Cotap.A2B/9J3Gr9w to find one close to you.3.Make use of household items: Use cat litter or old coffee grounds to dispose medications if other options arenot available. Mix your drugs with these household products, seal them in an airtight container andthrow it into the garbage. Call [facility]: [phone] to be sure your drugs can be disposed of in this way. Some medicines may require a different approach.4.Never flush your medications down the toilet. IF YOU HAVE BEEN PRESCRIBED AN OPIOID FOR PAIN If you have been prescribed an opioid (such as hydrocodone, oxycodone or morphine), it is critical to understand the possible side effects and risks of opioid pain medications. Even when taken as directed, opioids can have several side effects including: Tolerance, meaning you might need to take more of a medication for the same pain relief. Nausea, vomiting and/or constipation. Sleepiness, dizziness, dry mouth, confusion, depression or itching. Physical dependence, meaning you have withdrawal symptoms when a medication is stopped, can develop within a few days. KNOW YOUR RESPONSIBILITIES It is important to know exactly how much and how often to take the opioid pain medications you are prescribed. Never take opioids in higher amounts or more often than prescribed. Do not combine opioids with alcohol or other drugs that cause drowsiness, such as benzodiazepines, also known as benzos, including diazepam and alprazolam, muscle relaxants or sleep aids. Never sell or share prescription opioids. This is illegal. Store opioids in a secure place and out of reach of others (including children, family, friends and visitors). The last page of this document has been signed and retained as a CHART COPY. Signatures Patient Education Materials Moderate Conscious Sedation, Adult, Care After Nausea and Vomiting, Adult Colonoscopy, Adult, Care After Medication Leaflets My discharge plan and instructions have been reviewed and explained to me and I,NIKI MEYER understand my current condition and have read and understand these discharge instructions. I have received a written copy of the plan/instructions. If I have questions, I am aware that I should contactmy doctor. 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09-20-2023 Anesthesiology Consult note Patient: NIKI MEYER Age: 68 years Sex: Female : 1955 Associated Diagnoses: None Author: CHAMP ORTEGA APRN-ECOLOGY TEACHER Assessment Postanesthesia assessment Vitals: Vital signs from flowsheet : Vital Signs 08/21/2023 9:00 EDT Heart Rate Monitored 67 bpm bpm Respiratory Rate - Anes 11 br/min br/min Systolic Blood Pressure Non-Invasive 97 mmHg mmHg Diastolic Blood Pressure Non-Invasive 57 mmHg mmHg 08/21/2023 8:56 EDT Systolic Blood Pressure Non-Invasive 80 mmHg mmHg Diastolic Blood Pressure Non-Invasive 56 mmHg mmHg 08/21/2023 8:55 EDT Heart Rate Monitored 70 bpm bpm Respiratory Rate - Anes 11 br/min br/min Systolic Blood Pressure Non-Invasive 74 mmHg mmHg Diastolic Blood Pressure Non-Invasive 47 mmHg mmHg 08/21/2023 8:50 EDT Heart Rate Monitored 74 bpm bpm Respiratory Rate - Anes 12 br/min br/min Systolic Blood Pressure Non-Invasive 80 mmHg mmHg Diastolic Blood Pressure Non-Invasive 50 mmHg mmHg 08/21/2023 8:45 EDT Heart Rate Monitored 77 bpm bpm Respiratory Rate - Anes 14 br/min br/min Systolic Blood Pressure Non-Invasive 89 mmHg mmHg Diastolic Blood Pressure Non-Invasive 56 mmHg mmHg 08/21/2023 8:40 EDT Heart Rate Monitored 81 bpm bpm Respiratory Rate - Anes 0 br/min br/min Systolic Blood Pressure Non-Invasive 92 mmHg mmHg Diastolic Blood Pressure Non-Invasive 56 mmHg mmHg 08/21/2023 8:38 EDT Systolic Blood Pressure Non-Invasive 102 mmHg mmHg Diastolic Blood Pressure Non-Invasive 57 mmHg mmHg 08/21/2023 8:00 EDT Temperature Temporal Artery 36.3 DegC Peripheral Pulse Rate 90 bpm Respiratory Rate 20 br/min Systolic Blood Pressure Non-Invasive 114 mmHg Diastolic Blood Pressure Non-Invasive 76 mmHg Blood Pressure Method Automatic Blood Pressure Location Left arm , Measurements from flowsheet . Mental status: alert & oriented x 4. Respiratory function: respirations are non-labored. Respiratory support: none. CV function: Normal rate. Cardiovascular support: none. Pain. Nausea status: see nursing documentation of medications. Postoperative hydration status: within normal limits. Digitally Signed by CHAMP ORTEGA on 08/21/2023 09:03 AM [facility]09-20-2023 Anesthesiology Consult note Patient: NIKI MEYER Age: 68 years Sex: Female : 1955 Associated Diagnoses: None Author: CHAMP ORTEGA Preoperative Information Time of last solid food intake: 08/21/2023 00:00:00 Time of last clear liquid intake: 08/21/2023 05:00:00 Anesthesia history Patient's history: negative. Family's history: negative. Health Status Allergies: Allergic Reactions (Selected) Moderate Chocolate- Stomach ache. Hayfever- Rash. MSG- Breast pain. Severity Not Documented Caffeine- Headache. GoLYTELY- Skin sensitivity. Nasalcrom- Rash. Peanut butter- Headache. Peanuts- Headache. Sulfa- Unknown., Allergies (9) ActiveReaction ChocolateStomach ache HayfeverRash MSGBreast pain caffeineHeadache GoLYTELYSkin sensitivity NasalcromRash Peanut butterHeadache PeanutsHeadache sulfaUnknown Current medications: (Selected) Inpatient Medications Ordered Lactated Ringers Infusion 1,000 mL: 20 mL/hr, Intravenous Prescriptions Prescribed DME MISCellaneous: See Instructions, Incontinence pads and supplies, Dx: N39.46, 1 EA, 0 Refill(s) alendronate 70 mg oral tablet: 70 mg, 1 tab(s), Oral, qWeek, for 84 day(s), 12 tab(s), 1 Refill(s) meloxicam 15 mg oral tablet: 15 mg, 1 tab(s), Oral, qDayM, for 90 day(s), Take with food/milk. Do not take any other NSAIDs while on this med., PRN: Pain, 90 tab(s), 0 Refill(s) nystatin 100,000 units/g topical cream: 1 amandeep, Topical, BID, for 30 day(s), Apply to the affected area twice daily until healing complete., PRN: Rash, 30 gram(s), 1 Refill(s) nystatin 100,000 units/g topical powder: 1 amandeep, Topical, BID, for 30 day(s), PRN: Rash, 60 gram(s),0 Refill(s) Documented Medications Documented Fish Oil 1000 mg oral capsule: 1,000 mg, 1 cap(s), Oral, qDay, 0 Refill(s) Kevon Root: one as needed, 0 Refill(s) Multivitamin: 1 tab(s), Oral, Daily, 0 Refill(s) Slow Fe (as elemental iron) 45 mg oral tablet, extended release: 45 mg, 1 tab(s), Oral, qDay, 0 Refill(s) Tylenol: 325 mg, Oral, BID, PRN: as needed for pain, 0 Refill(s) Vitamin B Complex 100: one daily, 0 Refill(s) acetaminophen 325 mg oral capsule: 650 mg, 2 cap(s), Oral, q4h, PRN: as needed for pain, 0 Refill(s) calcium carbonate 1000 mg oral tablet, chewable: 1,000 mg, 1 tab(s), Chewed, qDay, 0 Refill(s) cetirizine 10 mg oral capsule: 10 mg, 1 cap(s), Oral, qDay, PRN: as needed for allergy symptoms, 40cap(s), 0 Refill(s) chromium picolinate 200 mcg oral capsule: 200 mcg, 1 cap(s), Oral, qDay, 0 Refill(s) diclofenac 1% topical gel: 1 amandeep, Topical, QID, 100 gram(s), 0 Refill(s) levothyroxine 50 mcg (0.05 mg) oral tablet: 50 mcg, 1 tab(s), Oral, qDay, One daily sat-sat, none on Saturday, 2 tablets on Saturday, 0 Refill(s) nystatin 100,000 units/g topical cream: ues 1 APPLICATORFUL Topical TWICE DAILY for 30 days as needed for Rash,Apply to the affected area twice daily until healing complete.] simethicone 80 mg oral tablet, chewable: See Instructions, 1 tab(s) Chewed BID- QID prn per endo records, 0 Refill(s) vitamin E 200 intl units oral capsule: 200 International_Unit, 1 cap(s), Oral, Daily, 0 Refill(s), Medications (1) Active Scheduled: (0) Continuous: (1) Lactated Ringers 1,000 mL 1,000 mL, Intravenous, 20 mL/hr PRN: (0) Problem list: Medical Anemia / SNOMED CT 711043545 / Confirmed Anemia / SNOMED CT 378442928 / Confirmed Back pain / SNOMED CT 4564781931 / Confirmed Mid back pain / SNOMED CT 707172961 / Confirmed Bone pain / SNOMED CT 81172822 / Confirmed Candidal intertrigo / SNOMED CT 871991180 / Confirmed Chronic headaches / SNOMED CT 6055972051 / Confirmed Chronic kidney disease, stage 2 (mild) / SNOMED CT 5312046219 / Confirmed Compression deformity of vertebra / SNOMED CT 447208998 / Confirmed Compression fracture of lumbar vertebra / SNOMED CT 2804761957 / Confirmed T12 compression fracture / SNOMED CT 9472694383 / Confirmed Compression fracture of thoracic vertebra / SNOMED CT 2085548593 / Confirmed Compression deformity of vertebra / SNOMED CT 83968178 / Confirmed Constipation / SNOMED CT 83352201 / Confirmed Leg cramp / SNOMED CT 7346278935 / Confirmed Renal cyst, right / SNOMED CT 3641435556 / Confirmed Loss of height / SNOMED CT 143555747 / Confirmed Depression / SNOMED CT 564774402 / Confirmed Dizziness / SNOMED CT 4050763480 / Confirmed Systolic ejection murmur / SNOMED CT 554400220 / Confirmed Fibrocystic changes of both breasts / SNOMED CT 389418567086066 / Confirmed History of amebiasis / SNOMED CT 916925119 / Confirmed Hemangioma of spine / SNOMED CT 3543442910 / Confirmed Hematochezia / SNOMED CT 9969923169 / Confirmed Hemorrhoid / SNOMED CT 868203539 / Confirmed Hiatal hernia / SNOMED CT 533751981 / Confirmed History of mononucleosis / SNOMED CT 9018220239 / Confirmed Hyperlipidemia / SNOMED CT 83624671 / Confirmed Hyperlipidemia, mild / SNOMED CT 19288497 / Confirmed Mixed urge and stress incontinence / SNOMED CT 81997161 / Confirmed Iron deficiency anemia / SNOMED CT 441681924 / Confirmed Pain in lower jaw / SNOMED CT 035864873 / Confirmed Leukopenia / SNOMED CT 245118674 / Confirmed Low back pain / SNOMED CT 219599229 / Confirmed Anterolisthesis / SNOMED CT 7229582870 / Confirmed Mammogram declined / SNOMED CT 2618321770 / Confirmed Mass of right side of neck / SNOMED CT 719260465 / Confirmed Mild tricuspid regurgitation / SNOMED CT 9088160960 / Confirmed Urinary incontinence, mixed / SNOMED CT 4802396387 / Confirmed Multiple thyroid nodules / SNOMED CT 193093326 / Confirmed Normocytic anemia / SNOMED CT 971829244 / Confirmed Orthostatic hypotension / SNOMED CT 15322857 / Confirmed Infection of spine / SNOMED CT 433948934 / Confirmed Osteoporosis / SNOMED CT 227753236 / Confirmed Peripheral edema / SNOMED CT 326593235 / Confirmed Short-term memory loss / SNOMED CT 079773964 / Confirmed Elevated TSH / SNOMED CT 994300737 / Confirmed Rectal bleeding / SNOMED CT 894111874 / Confirmed Schmorl's nodes of lumbar region / SNOMED CT 64738663 / Confirmed Schmorl's nodes-lumbar region / SNOMED CT 37747237 / Confirmed, Active Problems (50) Anemia Anemia Anterolisthesis Back pain Bone pain Candidal intertrigo Chronic headaches Chronic kidney disease, stage 2 (mild) Compression deformity of vertebra Compression deformity of vertebra Compression fracture of lumbar vertebra Compression fracture of thoracic vertebra Constipation Depression Dizziness Elevated TSH Fibrocystic changes of both breasts Hemangioma of spine Hematochezia Hemorrhoid Hiatal hernia History of amebiasis History of mononucleosis Hyperlipidemia Hyperlipidemia, mild Infection of spine Iron deficiency anemia Leg cramp Leukopenia Loss of height Low back pain Mammogram declined Mass of right side of neck Mid back pain Mild tricuspid regurgitation Mixed urge and stress incontinence Multiple thyroid nodules Normocytic anemia Orthostatic hypotension Osteoporosis Pain in lower jaw Peripheral edema Rectal bleeding Renal cyst, right Schmorl's nodes of lumbar region Schmorl's nodes-lumbar region Short-term memory loss Systolic ejection murmur T12 compression fracture Urinary incontinence, mixed Histories Past Medical History: Resolved Screening for osteoporosis (915423374): Resolved. Jaw pain (934648548): Resolved. Neutropenia (878593169): Resolved. Family History: Heart attack Father Hepatitis Father Procedure history: Colonoscopy (771531442) in 2017 at 62 Years. Social History Social & Psychosocial Habits Alcohol 08/14/2023 Use: Never Substance Abuse 08/14/2023 Use: Never Tobacco 08/14/2023 Tobacco Use: Never (less than 100 in l Home/Environment 08/14/2023 Other risks in environment: no smoke exposure Nutrition/Health 08/14/2023 Caffeine intake amount: none . Physical Examination Vital Signs 08/21/2023 8:00 EDT Temperature Temporal Artery 36.3 DegC Peripheral Pulse Rate 90 bpm Respiratory Rate 20 br/min Systolic Blood Pressure Non-Invasive 114 mmHg Diastolic Blood Pressure Non-Invasive 76 mmHg Blood Pressure Method Automatic Blood Pressure Location Left arm Vital Signs(last 24 hrs) Last Charted Resp Rate 20 br/min (AUG 21 08:00) SRU545 mmHg (AUG 21 08:00) DBP76 mmHg (AUG 21 08:00) Measurements from flowsheet : Measurements 08/21/2023 8:00 EDT Height 151.2 cm Admission Weight 58.18 kg Weight Method Stated [place] Body Weight 44.41 kg Admission Body Mass Index 25.45 m2 General: Alert and oriented. Airway: Normal temporomandibular joint mobility, Normal mouth, Normal neck range of motion. Mallampati classification: III (soft palate, base of uvula visible). Dentition Evaluation: Denies loose/chipped teeth. Respiratory: Respirations are non-labored. Cardiovascular: Normal rate. Neurologic: Alert, Oriented. Review / Management Results review: No qualifying data available , Lab results 08/21/2023 8:20 EDT Antecubital Right 08/21/2023 22 gauge Peripheral IV Activity: Insert new site Peripheral IV Dressing Condition: Clean, Dry, Intact Peripheral IV Dressing Activity: Applied Peripheral IV Line Status/Patency: Flushes easily Peripheral IV Site Condition: No complications Peripheral IV Equipment: Extension set Peripheral IV Number of Attempts: 1 Lactated Ringers Injection Begin Bag 1,000 mL mL 08/21/2023 8:14 EDT GI Prep Completed Yes GI Prep Results Liquid 08/21/2023 8:10 EDT Allergies Yes Consent Form Signed Yes Patient Dressed In Hospital gown Belongings At Bedside Coat, Glasses, Pants, Shirt, Shoes, Undergarments NPO Status Maintained Allergy Band on and Verified Yes Patient ID Band on and Verified Yes Implants Verified Yes Pacemaker/AICD Verified Yes Site Verified by Patient/Family Yes Anesthesia Consent Signed Yes Last Fluid Intake 08/21/2023 5:30 Last Food Intake 08/19/2023 18:00 08/21/2023 8:00 EDT Designated Person #1 We May Share TANIKA NOHEMI MEYER Designated Person #1 Relationship Spouse Height 151.2 cm Admission Weight 58.18 kg Weight Method Stated [place] Body Weight 44.41 kg Admission Body Mass Index 25.45 m2 Temperature Temporal Artery 36.3 DegC Peripheral Pulse Rate 90 bpm Respiratory Rate 20 br/min Systolic Blood Pressure Non-Invasive 114 mmHg Diastolic Blood Pressure Non-Invasive 76 mmHg Blood Pressure Method Automatic Blood Pressure Location Left arm Respirations Unlabored Respiratory Pattern Regular Oxygen Saturation 99 % Abdomen Description Non-distended, Symmetric Abdomen Palpation Non-Tender Bowel Sounds All Quadrants Present Status No, per patient Skin Temperature Warm Skin Description Normal for ethnicity Skin Integrity Intact Characteristics of Speech Clear Level of Consciousness Alert Strength All Extremities Strong Tone All Extremities Normal Sensation All Extremities Intact Affect/Behavior Appropriate, Calm, Cooperative Orientation Oriented x 4 Sensory Deficits None Infectious Disease Symptoms Patient states no symptoms Infectious Disease Recent Exposure No Alcohol and Drug Use No Employee of Institutional Living No Health Care Employee No History of Exposure to TB No History of Positive Chest X-Ray for TB No History of Positive TB Skin Test No Homeless No Known Immunosuppression No Recent Immigrant No Resident of Institutional Living No Bloody Sputum No Fatigue No Fever No Loss of Appetite No Night Sweats No Persistent Cough > 3 Weeks No Weight Loss No Barriers to Learning None evident Teaching Method Explanation Preferred Spoken Language Gabonese Preferred Written Language Gabonese Information Given by Patient Patient's Current Physicians ROMAR Discharge To, Anticipated Home independently Activity Status ADL Awake, Resting Standard Safety ID band on, Allergy Band on, Call device within reach, Bed in low position, Wheels locked, Upper/Half-Length side-rails up, personal items within reach, Visitor at bedside, Safety level maintained Prev Test Positive/Diagnosis w/COVID-19 No Current Quarantine/Isolated any Illness No Any Contact with Sick Animals/Birds No Traveled Anywhere in Last 30 Days No No Personal Devices, Patient Valuables Glasses Admission Note-Nursing Procedure/Therapy Intake 08/21/2023 7:15 EDT [facility] History and Physical 08/20/2023 14:49 EDT Primary Care Phone Message Order request (Modified) 08/20/2023 6:26 EDT [facility]on AREVALO . Assessment and Plan [place] [employer] Anesthesiologists (ASA) physical status classification: Class III. Anesthetic Preoperative Plan Anesthetic technique: MAC. Informed consent: signed by patient. Digitally Signed by CHAMP ORTEGA on 08/21/2023 08:41 AM [facility]09-20-2023 Note [place] ADMISSION HISTORY AND PHYSICIAL CHIEF COMPLAINT: Colorectal cancer screening HISTORY OF PRESENT ILLNESS: Colorectal cancer screening, last colonoscopy 7 years ago REVIEW OF SYSTEMS: Constitutional: denies weight loss Cardiovascular:denies chest pain, palpitations Respiratory:denies shortness of breath Gastrointestinal:no abd pain Musculoskeletal: no arthralgias Skin: no rashes . ACTIVE PROBLEMS: (50) Anemia (330176361) Anemia (263383851) Anterolisthesis (8213833672) Back pain (8099278984) Bone pain (54757502) Candidal intertrigo (071341660) Chronic headaches (7235106228) Chronic kidney disease, stage 2 (mild) (0620271877) Compression deformity of vertebra (627968592) Compression deformity of vertebra (62016222) Compression fracture of lumbar vertebra (1086058761) Compression fracture of thoracic vertebra (1547006972) Constipation (28960492) Depression (792754604) Dizziness (7661973542) Elevated TSH (363364270) Fibrocystic changes of both breasts (618198091481121) Hemangioma of spine (0936783812) Hematochezia (2528491957) Hemorrhoid (877839255) Hiatal hernia (658975805) History of amebiasis (968131705) History of mononucleosis (1018326061) Hyperlipidemia (95391374) Hyperlipidemia, mild (64576600) Infection of spine (486731215) Iron deficiency anemia (447961815) Leg cramp (2060563233) Leukopenia (774773050) Loss of height (414488307) Low back pain (192118955) Mammogram declined (8450474122) Mass of right side of neck (794290000) Mid back pain (794668729) Mild tricuspid regurgitation (9323098624) Mixed urge and stress incontinence (53935378) Multiple thyroid nodules (169467843) Normocytic anemia (380794443) Orthostatic hypotension (50896316) Osteoporosis (389940383) Pain in lower jaw (530125091) Peripheral edema (515069790) Rectal bleeding (618441868) Renal cyst, right (8126849249) Schmorl's nodes of lumbar region (23850482) Schmorl's nodes-lumbar region (20612374) Short-term memory loss (765578422) Systolic ejection murmur (791731692) T12 compression fracture (8144765562) Urinary incontinence, mixed (0607323759) MEDICATIONS: Active Inpt Meds: None Active PRN Meds: None One Time Meds: None Active IV Meds: None ALLERGIES: (9) Chocolate Hayfever MSG caffeine GoLYTELY Nasalcrom Peanut butter Peanuts sulfa FAMILY HISTORY: SOCIAL HISTORY: PHYSICAL EXAM: VITALS: No Data Available 24 Hr Tmax: No Data Available 36 Hr Tmax: No Data Available Vital Signs are the last 5 in the past 48 hours. Weights display the last 5 within 7 days. Initial Wt: No Data Available Current Wt: No Data Available physical exam alert and oriented cardio; regular without murmur pulm; clear abd; soft, nontender LABS: No 36hr Lab Data DIAGNOSTICS: IMPRESSION: Colorectal cancer screening PLAN: Proceed with colonoscopy as discussed in the office Digitally Signed by NAYAN AGARWAL DO on 08/21/2023 07:15 AM [facility]03-10-2023 Note. MICRO - Microbiology PROCEDURE: Urine Culture [*1] SOURCE: Urine BODY SITE: COLLECTED DATE/TIME: 02/05/2023 16:32 EST RECEIVED DATE/TIME: 02/05/2023 21:14 EST START DATE/TIME: 02/05/2023 21:15 EST FREE TEXT SOURCE: FINAL REPORTS Final Report [] Verified Date/Time/Personnel: 02/08/2023 07:21 EST >100,000 cfu/ml Escherichia coli PRELIMINARY REPORTS Preliminary Report [] Verified Date/Time/Personnel: 02/07/2023 09:37 EST >100,000 cfu/ml Escherichia coli LIAN to follow Preliminary Report [] Verified Date/Time/Personnel: 02/06/2023 09:15 EST Culture results pending. SUSCEPTIBILITY RESULTS Escherichia coli Antibiotic LINA Dilut LINA Inter Ampicillin <=8 Susceptible Ampicillin/ <=4/2 Susceptible Sulbactam Aztreonam <=4 Susceptible Cefazolin <=2 Susceptible Ciprofloxacin <=0.25 Susceptible Ertapenem <=0.5 Susceptible Gentamicin >8 Resistant Imipenem <=1 Susceptible Levofloxacin <=0.5 Susceptible Meropenem <=1 Susceptible Minocycline <=4 Susceptible Nitrofurantoin <=32 Susceptible Tobramycin <=2 Susceptible Trimethoprim/ <=0.5/9.5 Susceptible Sulfa Performing Locations *1: This test was performed at: [facility], [address] [place] [address], [phone] , [facility] ([place])Evaluation + Plan note Future Appointments Appointment Date:02/15/2023 01:30:00 PM Scheduled Provider: Location:[facility] Appointment Type:PT [facility] Appointment Date:02/21/2023 01:30:00 PM Scheduled Provider: Location:[facility] Appointment Type:PT [facility] Appointment Date:03/12/2023 09:30:00 AM Scheduled Provider:MARCO MENSAH DO Location:[facility] Appointment Type:PC OV Future Scheduled Tests Radiology* US Bladder 02/05/23 [facility] Evaluation + Plan note Future Appointments Appointment Date:03/12/2023 09:30:00 AM Scheduled Provider:MARCO MENSAH DO Location:[facility] Appointment Type:PC OV [facility] Evaluation + Plan note Future Appointments Appointment Date:05/01/2023 10:30:00 AM Scheduled Provider:MARCO MENSAH DO Location:[facility] Appointment Type:PC OV Future Scheduled Tests Laboratory* Thyroid Stimulating Hormone 03/12/23 * Complete Blood Count 03/12/23 * Lipid Profile 03/12/23 * Complete Metabolic Panel 03/12/23 * N-Terminal proBNP 03/12/23 [facility] Evaluation + Plan note Future Appointments [facility] Evaluation + Plan note Future Appointments Appointment Date:10/01/2024 09:30:00 AM Scheduled Provider: Location:[facility] Appointment Type:US Breast Bilateral Complete Appointment Date:10/01/2024 11:00:00 AM Scheduled Provider: Location:[facility] Appointment Type:US Soft Tissue Mass of Neck Appointment Date:10/05/2024 02:00:00 PM Scheduled Provider: Location:[facility] Appointment Type:BD Bone Density DEXA Axial Skeleton Appointment Date:12/23/2024 10:30:00 AM Scheduled Provider:MARCO MENSAH DO Location:[facility] Appointment Type:PC OV Future Scheduled Tests Radiology* BD Bone Density DEXA Axial Skeleton Adult (21 yrs or older) 10/05/24 * US Breast Bilateral Complete 10/01/24 * US Soft Tissue Mass of Neck 10/01/24 [facility] Evaluation + Plan note Future Appointments Appointment Date:10/05/2024 02:00:00 PM Scheduled Provider: Location:[facility] Appointment Type:BD Bone Density DEXA Axial Skeleton Appointment Date:10/12/2024 11:00:00 AM Scheduled Provider: Location:[facility] Appointment Type:US Breast Bilateral Complete Appointment Date:12/23/2024 10:30:00 AM Scheduled Provider:MARCO MENSAH DO Location:[facility] Appointment Type:PC OV Future Scheduled Tests Radiology* BD Bone Density DEXA Axial Skeleton Adult (21 yrs or older) 10/05/24 * US Breast Bilateral Complete 10/12/24 [facility] Evaluation + Plan note Future Appointments Appointment Date:10/12/2024 11:00:00 AM Scheduled Provider: Location:[facility] Appointment Type:US Breast Bilateral Complete Appointment Date:12/23/2024 10:30:00 AM Scheduled Provider:MARCO MENSAH DO Location:[facility] Appointment Type:PC OV Future Scheduled Tests Radiology* US Breast Bilateral Complete 10/12/24 [facility] Evaluation + Plan note Future Appointments Appointment Date:12/23/2024 10:30:00 AM Scheduled Provider:MARCO MENSAH DO Location:[facility] Appointment Type:PC OV Future Scheduled Tests Radiology* US Breast Bilateral Complete 10/19/24 [facility] evaluation + Plan note Future Appointments Appointment Date:04/20/2025 10:00:00 AM Scheduled Provider: Location:[facility] Appointment Type:US Breast Left Complete Appointment Date:09/24/2025 10:00:00 AM Scheduled Provider:MARCO MENSAH DO Location:[facility] Appointment Type:PC Wellness Medicare Future Scheduled Tests Laboratory* Iron Level 12/23/24 Radiology* US Breast Left Complete 04/25/25 * US Breast Left Complete 04/20/25 * US Thyroid 01/11/25 [facility] Evaluation + Plan note Future Appointments Appointment Date:04/20/2025 10:00:00 AM Scheduled Provider: Location:[facility] Appointment Type:US Breast Left Complete Appointment Date:09/24/2025 10:00:00 AM Scheduled Provider:MARCO MENSAH DO Location:[facility] Appointment Type:PC Wellness Medicare Future Scheduled Tests Laboratory* Iron Level 12/23/24 Radiology* US Breast Left Complete 04/25/25 * US Breast Left Complete 04/20/25 [facility] Evaluation + Plan note Future Appointments Appointment Date:09/24/2025 10:00:00 AM Scheduled Provider:MARCO MENSAH DO Location:[facility] Appointment Type:PC Wellness Medicare Future Scheduled Tests Laboratory* Iron Level 12/23/24 Radiology* US Breast Left Complete 04/25/25 [facility] Evaluation note* Diagnosis Onset Date Resolution Status Multinodular goiter (nontoxic) [facility] Work Phone: Evaluation note* Diagnosis Onset Date Resolution Status Multinodular goiter (nontoxic) chronic Hypothyroidism (acquired) ch ronic Multinodular goiter (nontoxic) chronic Osteoporosis [facility] Work Phone: Evaluation note* Diagnosis Onset Date Resolution Status Hypothyroidism (acquired) ch ronic Kyphosis chronic Multinodular goiter (nontoxic) chronic Osteoporosis [facility] Work Phone: Evaluation note* Diagnosis Onset Date Resolution Status Admit Date Hypothyroidism (acquired) chronic August 03, 2025 10:27am Multinodular goiter (nontoxic) chron ic August 03, 2025 10:27am Osteoporosis chronic August 10:27am [facility] Work Phone: Hospital course Narrative No data available for this section [facility] Hospital Discharge instructions No data available for this section [facility] Progress note No data available for this section [facility] Reason for referral (narrative)No reason for referral information [facility] Work Phone: Summary Purpose Family History No Family History Records Found Relationship Condition Age at Onset Recorded Date/T natanael father Myocardial infarction Unknown Inflammatory liver disease Unknown Advance Directives No Advanced Directives Records FoundNo Advanced Directives Records FoundNo Advanced Directives Records FoundNo Advanced Directives Records FoundNo Advanced Directives Records Found Chief Complaint and Reason for Visit Chief Complaint Admit Date Prolia - B&B February 01, 2025 10:0 0am SEE ORDER April 14, 2025 2:22p m Reason for Visit Admit Date Osteoporosis February 01, 2025 10:0 0am Chief Complaint THYROID NODULES YEARLY THYROID U/S 07/09 Reason for Visit Multinodular goiter (nontoxic) Chief Complaint THYROID NODULES YEARLY THYROID U/S 07/09 1 Y FU Reason for Visit Multinodular goiter (nontoxic) Hypothyroidism (acquired) Multinodular goiter (nontoxic) Osteoporosis Chief Complaint 1 Y FU Reason for Visit Hypothyroidism (acqu ired) Kyphosis Multinodular goiter (nontoxic) Osteoporosis Chief Complaint 1 Y FU PROLIA Reason for Visit Hypothyroidism (acqu ired) Kyphosis Multinodular goiter (nontoxic) Osteoporosis Chief Complaint 1 Y FU PROLIA Nontoxic multinodular goiter Reason for Visit Hypothyroidism (acqu ired) Kyphosis Multinodular goiter (nontoxic) Osteoporosis Chief Complaint Admit Date 2 DRS/ 2 ORDERS December 23, 2024 1 :17pm SEE ORDER January 06, 2025 1 1:32am [facility] January 27 6:57am Prolia - B&B February 01, 2025 10:0 0am Chief Complaint Admit Date 2 DRS/ 2 ORDERS December 23, 2024 1 :17pm SEE ORDER January 06, 2025 1 1:32am [facility] January 27 025 6:57am Prolia - B&B February 01, 2025 10:0 0am SEE ORDER April 14, 2025 2:22p m Chief Complaint Admit Date SEE ORDER April 14, 2025 2:22p m 1 Y FU - Prolia B&B August 03, 2025 10:27am Reason for Visit Admit Date Hypothyroidism (acquired) August 03, 2025 10:27am Multinodular goiter (nontoxic) August 03, 2025 10:27am Osteoporosis August 03, 2025 10:27am Additional Source Comments INFORMATION SOURCE (unrecogn ized section and content) DATE CREATED AUTHOR 04/17/2020 [facility] DATE CREATED AUTHOR AUTHOR'S ORGANIZ ATION 11/06/2023 [facility] ([place]) DATE CREATED AUTHOR AUTHOR'S ORGANIZ ATION 01/19/2025 [facility] DATE CREATED AUTHOR AUTHOR'S ORGANIZ ATION 04/30/2025 [facility] DATE CREATED AUTHOR AUTHOR'S ORGANIZ ATION [facility] Goals (unrecognized section and content) Goals may be documented in a n alternate sectionGoals may be documented in an alternate section No data available for this section No data available for this section No data available for this section No data available for this section No data available for this sectionGoals may be documented in an alternate sectionGoals may be documented in an alternate sectionGoals may be documented in an alternate section No data available for this section No data available for this section No data available for this section No data available for this section No data available for this section No data available for this section No data available for this sectionGoals may be documented in an alternate sectionGoals may be documented in an alternate section No data available for this sectionGoals may be documented in an alternate sectionGoals may be documented in an alternate section Care Team (unrecognized sect ion and content) Care Team Personnel Name: Heather Pierce Clerjeimy Lamb 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 Yudelka Walls DO Family Provider Active Dr. Marco Mensah DO Primary Care Provider Active Team Status: Inactive Member Role Status Dates Dr. Marco Mensah DO Primary Care Provider, Referring P roanitader Active Dr. Lincoln Hartley MD Attending Provider Active Team Status: Inactive Member Role Status Dates Dr. Marco Mensah DO Primary Care Provider Active Dr. Lincoln Hartley MD Attending Provider, Referring Provi mai Active Team Status: Active Member Role Status Dates Dr. Marco Mensah DO Primary Care Provider Active Team Status: Inactive Member Role Status Dates Dr. Marco Mensah DO Primary Care Provider Active Start: November 04, 2024 End: November 04, 2024 Dr. Lincoln Hartley MD Attending Provider Active Sta rt: November 04, 2024 End: November 04, 2024 Dr. Lincoln Hartley MD Referring Provider Active Sta rt: November 04, 2024 End: November 04, 2024 Team Status: Inactive Member Role Status Dates Dr. Marco Mensah DO Primary Care Provider Active Start: December 23, 2024 End: December 23, 2024 Dr. Marco Mensah DO Other Provider Active Start: December 23, 2024 End: December 23, 2024 Dr. Kirk Avalos MD Attending Provider Active Start: December 23, 2024 End: December 23, 2024 Dr. Kirk Avalos MD Referring Provider Active Start: December 23, 2024 End: December 23, 2024 Team Status: Inactive Member Role Status Dates Dr. Marco Mensah DO Primary Care Provider Active Start: January 06, 2025 End: January 06, 2025 Dr. Kirk Avalos MD Attending Provider Active Start: January 06, 2025 End: January 06, 2025 Dr. Kirk Avalos MD Referring Provider Active Start: January 06, 2025 End: January 06, 2025 Team Status: Inactive Member Role Status Dates Dr. Marco Mensah DO Primary Care Provider Active Start: January 27, 2025 End: January 27, 2025 Dr. Kirk Avalos MD Attending Provider Active Start: January 27, 2025 End: January 27, 2025 Dr. Kirk Avalos MD Referring Provider Active Start: January 27, 2025 End: January 27, 2025 Team Status: Inactive Member Role Status Dates Dr. Marco Mensah DO Primary Care Provider Active Start: February 01, 2025 End: February 01, 2025 Dr. Marco Mensah DO Referring Provider Active St art: February 01, 2025 End: February 01, 2025 Dr. Lincoln Hartley MD Attending Provider Active Sta rt: February 01, 2025 End: February 01, 2025 Team Status: Inactive Member Role Status Dates Dr. Marco Mensah DO Primary Care Provider Active Start: April 14, 2025 End: April 14, 2025 Dr. Kirk Avalos MD Attending Provider Active Start: April 14, 2025 End: April 14, 2025 Dr. Kirk Avalos MD Referring Provider Active Start: April 14, 2025 End: April 14, 2025 Team Status: Active Member Role/Relationship Status Dates Dr. Marco Mensah DO Primary Care Provider Active Team Status: Inactive Member Role/Relationship Status Dates Dr. Marco Mensah DO Primary Care Provider Active Start: February 01, 2025 End: February 01, 2025 Dr. Marco Mensah DO Referring Provider Active St art: February 01, 2025 End: February 01, 2025 Dr. Lincoln Hartley MD Attending Provider Active Sta rt: February 01, 2025 End: February 01, 2025 Team Status: Inactive Member Role/Relationship Status Dates Dr. Marco Mensah DO Primary Care Provider Active Start: April 14, 2025 End: April 14, 2025 Dr. Kikr Avalos MD Attending Provider Active Start: April 14, 2025 End: April 14, 2025 Dr. Kirk Avalos MD Referring Provider Active Start: April 14, 2025 End: April 14, 2025 Team Status: Inactive Member Role/Relationship Status Dates Dr. Marco Mensah DO Primary Care Provider Active Start: May 26, 2025 End: May 26, 2025 Dr. Kirk Avalos MD Attending Provider Active Start: May 26, 2025 End: May 26, 2025 Dr. Kirk Avalos MD Referring Provider Active Start: May 26, 2025 End: May 26, 2025 Team Status: Inactive Member Role/Relationship Status Dates Dr. Marco Mensah DO Primary Care Provider Active Start: April 14, 2025 End: April 14, 2025 Dr. Kirk Avalos MD Attending Provider Active Start: April 14, 2025 End: April 14, 2025 Dr. Kirk Avalos MD Referring Provider Active Start: April 14, 2025 End: April 14, 2025 Team Status: Inactive Member Role/Relationship Status Dates Dr. Marco Mensah DO Primary Care Provider Active Start: May 26, 2025 End: May 26, 2025 Dr. Kirk Avalos MD Attending Provider Active Start: May 26, 2025 End: May 26, 2025 Dr. Kirk Avalos MD Referring Provider Active Start: May 26, 2025 End: May 26, 2025 Team Status: Inactive Member Role/Relationship Status Dates Dr. Marco Mensah DO Primary Care Provider Active Start: August 03, 2025 End: August 03, 2025 Dr. Marco Mensah DO Referring Provider Active St art: August 03, 2025 End: August 03, 2025 Dr. Lincoln Hartley MD Attending Provider Active Sta rt: August 03, 2025 End: August 03, 2025 FOR RECORDS PERTAINING TO PATIENTS WHO ARE OR HAVE BEEN ENROLLED IN A CHEMICAL DEPENDENCY/SUBSTANCEABUSE PROGRAM, SOME INFORMATION MAY BE OMITTED. This clinical summary was aggregated from multiple sources. Caution should be exercised in using it in the provision of clinical care. This summary normalizes information from multiple sources, and as a consequence, information in this document may materially change the coding, format and clinical context of patient data. In addition, data may be omitted in some cases. CLINICAL DECISIONS SHOULD BE BASED ON THE PRIMARY CLINICAL RECORDS. [facility] [employer] [facility]. provides no warranty or guarantee of the accuracy or completeness of information in this document.
--- NOTE | 2025-08-14 11:24 | US_ITS ---
PROCEDURE: THYROID 08/14/2025 REASON FOR EXAM: COMPARE 2022, TIRADS 1.6 CM NODULE PLEASE TECHNIQUE: Procedure Code: USTHY Modality: US Procedure: THYROID COMPARISON: Prior study dated October 07, 2023. FINDINGS: Right thyroid lobe size: 3.1 cm 1 cm 1 cm Left thyroid lobe size: 5.2 cm 1.8 cm 1.6 cm Isthmus: 0.1 cm Background parenchymal echotexture is homogeneous. Nodules: . Lobe: Left, Location: Inferior pole, Size: 2.8 cm 2.1 cm 1.7 cm, Stability: Stable Composition: Solid or almost completely solid (+2) Echogenicity: Hypoechoic (+2) Margin: Smooth (+0) Shape: Wider than tall (+0) Echogenic Foci: None (+0) TI-RADS: 4 . Lobe: Left, Location: Midpole, Size: 1.1 cm 1 cm 0.7 cm, Stability: Stable Composition: Solid or almost completely solid (+2) Echogenicity: Hypoechoic (+2) Margin: Smooth (+0) Shape: Wider than tall (+0) Echogenic Foci: Macrocalcification (+1) TI-RADS: 5 Stable subcentimeter nodules in the right lobe.: Category 3 US/Thyroid IMPRESSION: Stable examination. Dominant 2.8 cm 2.1 cm 1.7 cm heterogeneous nodule in the lower pole of the lef t lobe of the thyroid. RECOMMENDATION: Based on most suspicious nodule. Nodule size = largest diameter Only evaluate nodule if =>5 mm. Growth > 20% in 2 dimensions = worsening. Follow up to 4 nodules. Recommend biopsy for no more than 2 nodules. Reading Location: [place] [id number]
== END | disposition home or self-care (01) ==
LOC: US 11:19
PROVIDERS: PCP Student in an Organized Health Care Education/Training Program; Referring Provider Internal Medicine Endocrinology, Diabetes & Metabolism; Visit Provider Internal Medicine Endocrinology, Diabetes & Metabolism
DX: E04.2 Nontoxic multinodular goiter (principal)
CPT/HCPCS: 76536

== ENCOUNTER → 2025-10-06 | Outpatient (CLI) | payer MEDICARE, OTHER, SELFPAY ==
[2025-10-06 12:36] LABS: Hematocrit 39.7 % (37-47); Hemoglobin 12.8 g/dL (12.0-15.0); Mean Corp Hgb Conc 32.2 g/dL (32-36); Mean Corpuscular Volume 94.3 fL (81-99); Mean Platelet Vol. 11.1 fl (6.2-12.0); Platelet Count 216 K/mm3 (150-450); RBC Distribution Width CV 14.2 % (11.6-14.6); RBC Distribution Width SD 49.0 fl (35.1-43.9); Red Blood Count 4.21 M/mm3 (4.2-5.4); White Blood Count 3.9 K/mm3 (4.4-11.0)
[2025-10-06 13:02] LABS: AST(SGOT) 26 U/L (<=31); Alanine Aminotransfer ALT/SGPT 30 U/L (<=34); Albumin, Serum 4.2 g/dL (3.4-4.8); Alkaline Phosphatase 55 U/L (35-104); Anion Gap 14 (5-15); BUN 14 mg/dL (4-19); BUN/Creat Ratio 19.8 RATIO (10-20); Calcium,Total 9.3 mg/dL (7.6-11.0); Carbon Dioxide 23.5 mmol/L (21.0-32.0); Chloride 104 mmol/L (98-108); Ferritin 285 ng/mL (22-378); Globulin 3.1 g/dL (2.2-4.2); Glucose 91 mg/dL (70-99); Potassium 4.2 mmol/L (3.3-5.1); Vitamin D,25 Hydroxy 58.6 ng/mL (30-100)
[2025-10-06 13:18] LABS: CRP < 3.00 mg/L (0.0-3.0); Iron 70 ug/dL (50-170)
== END | disposition home or self-care (01) ==
LOC: MTLAB 10:25
PROVIDERS: PCP Student in an Organized Health Care Education/Training Program; Referring Provider Internal Medicine Endocrinology, Diabetes & Metabolism; Visit Provider Internal Medicine Endocrinology, Diabetes & Metabolism
DX: D50.9 Iron deficiency anemia, unspecified (principal); K50.90 Crohn's disease, unspecified, without complications; E55.9 Vitamin D deficiency, unspecified; E03.9 Hypothyroidism, unspecified
CPT/HCPCS: 36415; 80053; 82306; 82728; 83540; 84443; 85027; 86140